=== PATIENT | female | born 1950 | race Caucasian/White ===

== ENCOUNTER 2022-07-13 14:15 | Outpatient (RCR) | payer MEDICARE, BC, SELFPAY ==
--- NOTE | 2022-05-12 12:13 | PT.OPEX ---
Please sign below to indicate agreement with POC. Thank you. 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 Tammie Ojeda Subjective Subjective Patient reports pain on L side of her ribs for about 8 weeks . Originally thought it was more internal but has had imaging that ruled out more abdominal causes. States her physician thinks her ribs on the left are touching her hip, states she used to be 5'6 but is now 5'4. Reports she had a mastectomy on the L back in 2019, feels like prosthesis on L is weighing that side down. Has started a core strengthening class about 2 weeks ago and is attending 3x per week. Not able to pin point pain to any specific activities but is present intermittently throughout the day, notices it more when she' s sitting. Reports finding some relief with elongating her back when laying in bed but isn't as comfortable when trying to sleep on her side. Has tried both ibuprofen ( doesn't like to take it, I have a pretty high tolerance to pain) and heat which both seem to have provided some relief. Denies any diagnosis of osteopenia/osteoporosis. Reports pain sometimes radiates around to the L side of her back. States she has a reformer and other exercise equipment at home that she can use. Pain Comments 0/10 at lowest, tends to hover around 4-5/10, goes up to 8-9 /10 at worst Sometimes a sharp pain but typically is more of a dull, grinding feeling originally thought I had an ulcer Date of Last Physician Visit 04/19/22 Current Work Status Retired Preferred Name Fatmata Precautions Therapy Limitations/Systems Review Not Limited Objective Range of Motion Trunk: Flexion - 80% Extension - 100% SB - L 80%, R 75% (more stiff toward L) Rotation - 75% bilaterally, pain on L when turning toward R Hip: WNL Strength Trunk: Flexion - 4/5 Extension - 5/5 SB - 4+/5 bilaterally Rotation - 5/5 bilaterally Hip: Flexion - 4-/5 bilaterally Extension - Abd. - 5/5 bilaterally Add. - 5/5 bilaterally IR - 4+/5 bilaterally ER - 4/5 bilaterally Palpation Rib mobility: normal on L, no pain Spinal mobility: mild hypomobility of lower thoracic spine, tender around T11-12 with central and unilateral PA mob Soft tissue: tender/tight L hip flexor/ iliacus tender/tight bilateral thoracic region erector spinae Balance & Gait Gait: normal Posture Decreased space on L side between lower ribs and iliac crest Functional Test Performed & Score Modified JULIO (05/12/22) score: 10/50 (20% impaired) Assessment Assessment/Impression Patient is a 71 year old female who presents to physical therapy with decreased space between her lower left ribs and iliac crest resulting L hip and back pain. Objective testing revealed bilateral hip weakness, mild core/trunk weakness, and decreased thoracic spine mobility. She was tender with palpation of L iliacus and thoracic erector spinae muscles, found mild relief with STM to affected muscles. The above findings limit the patients ability to sit comfortably and move throughout day to day activities pain-free. She will benefit from skilled intervention to increase trunk /hip strength and thoracic spine mobility to improve trunk posture and decrease frequency of symptoms to allow patient to return to PLOF. Primary Functional Limitations pain in L lower ribs, pain in L iliac crest, pain with sitting, hip muscle weakness, decrease thoracic spine mobility Plan of Care Rehabilitation Potential Good Physical Therapy Goals created 05/12/22: STG - Patient will improve gross hip strength to 4/5 in 4 weeks. STG - Patient will decrease subjective report of pain at worst from 8-9/10 to 5-6/10 to indicate improving symptoms and increased tolerance for prolonged sitting in 4 weeks. LTG - Patient will increase gross hip and trunk strength to 5/5 for optimal functional movement in 10 weeks. LTG - Patient will decrease subjective report of worst pain to 1-2/10 in order to tolerate longer bouts of sitting and daily activities without pain and return to PLOF in 10 weeks. LTG - Patient will demonstrate compliance with HEP in order to manage symptoms at home and decrease likelihood of symptom reoccurrence in 10 weeks. Treatment Plan/Direct Interventions Joint Mobilization,Manual Therapy,Neuromuscular Re-ed, Orthotics/Braces,Therapeutic Activities,Therapeutic Exercises,Traction (Mechanical ) Frequency/Duration 1x/week for 8-10 weeks Patient Will Be Discharged From Therapy Completion of LTG(s),Skills Plateau,Independent w/HEP, Independently Progressing Evaluation Billing Untimed Code Treatment Minutes 40 Complexity High Certification Information Initial Certification Date 05/12/22 Ending Certification Date 07/21/22
== END 2022-07-19 10:16 | disposition home or self-care (01) ==
PROVIDERS: PCP Internal Medicine; Visit Provider Internal Medicine
DX: R29.3 Abnormal posture (principal)
CPT/HCPCS: 97110; 97140; 97163

== ENCOUNTER 2022-11-08 08:04 | Outpatient (CLI) | payer MEDICARE, BC, SELFPAY ==
--- NOTE | 2022-11-08 08:15 | MR_ITS ---
[address] [address] Phone:?[phone] Fax:?[phone] Referring Physician Information: Felix Recinos M.D. [id number] [facility] [address] Phone:?[phone] Fax:?[phone] Patient:Jabari Crespo D.O.B:?1950 Sex:?Female Phone:?[phone] [facility] MRN:?[id number] Exam Date:?11/08/2022 ? EXAM: MRI of the RIGHT KNEE, without contrast CLINICAL HISTORY: Ongoing right knee pain. Medial meniscal tear. COMPARISONS: MRI 07/14/2009. TECHNICAL: MR sequences of the right knee: sagittals: PD, PDFS coronals: PD, STIR axials: PD, T2 FS CONTRAST: None SEDATION: None FINDINGS: Bones: No fracture or destructive osseous lesion. Patellofemoral joint: Cartilage: Predominantly intact. Retinacula: The medial and lateral retinacula are intact. Knee joint: Effusion: Trace right knee joint effusion. Popliteal cyst: Moderately sized popliteal cyst. Intra-articular bodies: None. Posteromedial corner: The semimembranosus and pes anserine tendons are intact. Medial compartment: Medial meniscus: 3.0 cm in length inferiorly surfacing flap tear from the body through posterior horn of the medial meniscus with a flap of torn meniscal tissue from the body flipped into the medial gutter with adjacent reactive medial tibial plateau bone marrow edema best seen on coronal series 8 images 16 through 20 and sagittal series 6 images 24 through 19, markedly progressed compared to previous MRI 07/14/2009. Cartilage: Extensive near full-thickness and full-thickness chondral loss over the central and peripheral portions of the medial tibial plateau with subjacent degenerative subchondral edema-like signal and extensive near full-thickness chondral loss over much of the weightbearing portion of the medial femoral condyle, markedly increased compared to previous MRI 07/14/2009. Lateral compartment: Lateral meniscus: Free edge fraying of the body of the lateral meniscus. No unstable lateral meniscal tear is seen. Cartilage: 5 x 5 mm area of grade II to III chondromalacia over the central portion of the lateral tibial plateau and 5 x 5 mm area of grade I to II chondromalacia over the mid weightbearing portion of the lateral femoral condyle, new compared to previous MRI 07/14/2009. Ligaments: Anterior cruciate ligament: Intact. Posterior cruciate ligament: Intact. Medial collateral ligament: Intact. Posterior oblique ligament: Intact. Fibular collateral ligament: Intact. Posterolateral corner: The distal biceps femoris tendon, iliotibial band, popliteus tendon, popliteus muscle, popliteofibular ligament, and arcuate ligament are intact. Extensor mechanism: Patellar tendon: Intact. Quadriceps tendon: Intact. IMPRESSION: 1. 3.0 cm in length inferiorly surfacing flap tear from the body through posterior horn of the medial meniscus with a flap of torn meniscal tissue from the body flipped into the medial gutter, markedly progressed compared to previous MRI 07/14/2009. 2. Extensive near full-thickness and full-thickness chondral loss over the central and peripheral portions of the medial tibial plateau with degenerative subchondral edema-like signal and extensive near full-thickness chondral loss over much of the weightbearing portion of the medial femoral condyle. This medial component chondromalacia has markedly increased compared to previous MRI 07/14/2009. 3. Free edge fraying of the body of the lateral meniscus. No unstable lateral meniscal tear. 4. 5 x 5 mm area of grade II to III chondromalacia over the central portion of the lateral tibial plateau and a 5 x 5 mm area of grade I to II chondromalacia over the mid weightbearing portion of the lateral femoral condyle, new compared to previous MRI 07/14/2009. 5. Trace right knee joint effusion. Moderately sized popliteal cyst. 6. No ligamentous injury of the right knee. RCB Electronically signed on 11/08/2022 1:23:00 PM by Norman Diez M.D.
== END 2022-11-08 08:05 | disposition home or self-care (01) ==
PROVIDERS: PCP Internal Medicine; Visit Provider Orthopaedic Surgery
DX: M25.561 Pain in right knee (principal); M23.221 Derangement of posterior horn of medial meniscus due to old tear or injury, right knee; M94.261 Chondromalacia, right knee; M25.461 Effusion, right knee; M71.21 Synovial cyst of popliteal space [Baker], right knee
CPT/HCPCS: 73721

== ENCOUNTER 2022-11-24 19:17 | Emergency (ER) | payer MEDICARE, BC, SELFPAY ==
[2022-11-24] VITALS (18 sets, daily range): BP systolic 132–167; BP diastolic 77–98; PULSE 66–71; RESP 16; TEMP 36.7; O2SAT 97–99; BMI 25.1
--- NOTE | 2022-11-24 20:18 | ED_ITS ---
HPI - General Adult General Chief complaint: Unspecified Complaint, Adult Stated complaint: heart palpitations, shortness of breath Time Seen by Provider: 11/24/22 20:09 History of Present Illness HPI narrative: 72-year-old woman presenting to the emergency department after complained of fluttering feeling that has been occurring in her upper abdomen low chest area on and off since her Pilates class this morning. She does admit a history of anxiety. She is little breathless here. Normally would not struggle with exercise intolerance. She is not actually having pain. Maybe a little lightheaded but not dizzy. Her mother had atrial fibrillation ultimately a CVA and so she is worried about this as well as possibly a heart attack. Related Data Home Medications Medication Instructions Recorded Confirmed bupropion HCl 150 mg 24 hr tablet, 150 mg PO DAILY 07/06/22 11/24/22 extended release clobetasol 0.05 % topical ointment 1 applic topical QDAY PRN 07/06/22 11/13/22 trazodone 50 mg tablet 50 mg PO .Bedtime 07/06/22 11/24/22 Allergies Allergy/AdvReac Type Severity Reaction Status Date / Time Sulfa (Sulfonamide Allergy Rash Verified 11/24/22 19:34 Antibiotics) Review of Systems Status of ROS: Reports: 10 or more systems reviewed and unremarkable except as noted in History and below [facility] Medical History History of gestational diabetes mellitus (GDM) Surgical History History of appendectomy (1963) History of left mastectomy (07/29/19) History of repair of rectocele (1997) History of squamous cell carcinoma of skin (2016) Family History Mother Atrial fibrillation Maternal Grandmother Atrial fibrillation Social History Smoking Status: Former smoker How often do you have a drink containing alcohol: monthly or less AUDIT-C Alcohol total score: 1 Non-prescribed substance use: denies use Little interest or pleasure in doing things: several days Feeling down, depressed, or hopeless: several days Exam Narrative: Exam Narrative: Pleasant. Mildly labored and mildly tachypneic during initial exam. During exam she does note that is having the symptoms again and I am able to observe what appear to be intermittent muscular fasciculations apparently in the epigastrium. She says this is the symptom that she is having. No dysrhythmia on monitor to correspond with her feeling otherwise. While intermittently breathless, lungs are clear. Cranial nerves 2-12 look to be intact. Neck is supple without supraclavicular crepitus. Trachea is midline. Heart with a regular rate and rhythm. No murmur rub or gallop identified. Abdomen is soft nontender. Otherwise as above. Extremities are without edema. She is well nourished and muscled. Const: Vital Signs, click to edit/add: Vital Signs - 24 hr 11/24/22 19:30 11/24/22 20:06 11/24/22 20:19 Temperature 98.1 F Pulse Rate 68 Pulse Rate [Left P ulse Oximeter] 71 68 Respiratory Rate 16 Blood Pressure Blood Pressure [Ri ght Upper Arm] 167/98 H 149/81 H Pulse Oximetry 99 97 97 Oxygen Delivery Me thod Room Air Room Air 11/24/22 20:30 11/24/22 20:31 11/24/22 20:45 Temperature Pulse Rate 71 68 66 Pulse Rate [Left P ulse Oximeter] Respiratory Rate Blood Pressure 141/77 H Blood Pressure [Ri ght Upper Arm] Pulse Oximetry 97 97 98 Oxygen Delivery Me thod 11/24/22 21:00 11/24/22 21:01 11/24/22 21:02 Temperature Pulse Rate 71 67 68 Pulse Rate [Left P ulse Oximeter] Respiratory Rate Blood Pressure 132/81 Blood Pressure [Ri ght Upper Arm] Pulse Oximetry 99 99 99 Oxygen Delivery Me thod 11/24/22 21:15 11/24/22 21:30 11/24/22 21:31 Temperature Pulse Rate 70 70 67 Pulse Rate [Left P ulse Oximeter] Respiratory Rate Blood Pressure 139/81 Blood Pressure [Ri ght Upper Arm] Pulse Oximetry 98 99 99 Oxygen Delivery Me thod 11/24/22 21:45 11/24/22 22:00 11/24/22 22:10 Temperature Pulse Rate 69 66 67 Pulse Rate [Left P ulse Oximeter] Respiratory Rate Blood Pressure 154/97 H Blood Pressure [Ri ght Upper Arm] Pulse Oximetry 99 98 97 Oxygen Delivery Me thod 11/24/22 22:11 11/24/22 22:15 11/24/22 22:31 Temperature Pulse Rate 67 67 Pulse Rate [Left P ulse Oximeter] Respiratory Rate Blood Pressure 142/88 H Blood Pressure [Ri ght Upper Arm] Pulse Oximetry 97 97 Oxygen Delivery Me thod Documenting provider has reviewed patient's vital signs: yes Course Vital Signs Vital signs: Initial Vital Signs Temperature 98.1 F 11/24/22 19:30 Temperature Source Temporal Artery Scan 11/24/22 19:30 Pulse Rate 71 11/24/22 19:30 Respiratory Rate 16 11/24/22 19:30 Blood Pressure 167/98 H 11/24/22 19:30 Blood Pressure Mean 121 11/24/22 19:30 Blood Pressure Position Sitting 11/24/22 19:30 Pulse Oximetry 99 11/24/22 19:30 Oxygen Delivery Method 11/24/22 19:30 Vital Signs Temperature 98.1 F 11/24/22 19:30 Pulse Rate 71 11/24/22 19:30 Respiratory Rate 16 11/24/22 19:30 Blood Pressure 167/98 H 11/24/22 19:30 Pulse Oximetry 99 11/24/22 19:30 Oxygen Delivery Method 11/24/22 19:30 Temperature 98.1 F 11/24/22 19:30 Pulse Rate 67 11/24/22 22:15 Respiratory Rate 16 11/24/22 19:30 Blood Pressure 142/88 H 11/24/22 22:31 Pulse Oximetry 97 11/24/22 22:15 Oxygen Delivery Method 11/24/22 20:06 Medical Decision Making MDM Narrative Medical decision making narrative: I think it is evident what is occurring here. I think this is also exacerbating anxiety. I do propose though he screen for electrolyte abnormalities and proceed accordingly. There were some concerns also expressed about potential aortic aneurysm. D-dimer was also collected to evaluate for vascular disruption. Labs were overall unremarkable. Was given 1 mg of lorazepam during time. On reassessment was still having some of these fasciculations. Overall seemed more relaxed. Lab Data Lab results reviewed: Yes I reviewed the patient's lab results Labs: Lab Results 11/24/22 11/24/22 11/24/22 Range/Units 20:29 20:29 20:29 Hgb 13.0 (12.0-16.0) gm/dL D-Dimer Quant (PE/DVT) 0.40 (0.00-0.50) ug/ml Sodium 138 (135-149) mmol/L Potassium 4.1 (3.6-5.1) mmol/L Chloride 107 (96-114) mmol/L Carbon Dioxide 28 (20-32) mmol/L BUN 16 (7-30) mg/dL Creatinine 0.7 (0.5-1.5) mg/dL Estimated Creat Clear 45.20 Estimated GFR 93 ml/min Glucose 94 (60-115) mg/dL Calcium 8.8 (8.4-10.6) mg/dL Magnesium 2.1 (1.5-2.6) mg/dL Troponin I < 0.01 L (0.01-0.04) ng/mL C-Reactive Protein < 0.5 L (0.5-1.0) mg/dL ECG Data Attestation: I personally reviewed and interpreted this ECG as follows: (Normal sinus rhythm rate of 66. Little baseline irritability consistent with what appears to be some muscle tension) Discharge Plan Discharge Clinical Impression: Anxiety, Fasciculations of muscle Patient Disposition: Home w/ Parent or Adult Condition: Stable Additional Instructions: Continue to stay well hydrated and participating in activities as usual. Continue to take your magnesium. Your magnesium level today incidentally was 2.1 (range for us is 1.5-2.6) If this seems to be worsening and or you are feeling lightheaded or with worsening shortness of breath or with escalating chest pain, return to the emergency department. I would expect this to resolve within a couple of days? Prescriptions: No Action bupropion HCl 150 mg tablet extended release 24 hr 150 mg PO DAILY trazodone 50 mg tablet 50 mg PO .Bedtime clobetasol 0.05 % ointment 1 applic topical QDAY PRN Follow Up/Referrals: Tammie Ojeda MD [Primary Care Provider] - Stand Alone Forms: MyHealth Info Instructions
[2022-11-24 20:54] LABS: Chloride* 107 mmol/L (96-114); Potassium* 4.1 mmol/L (3.6-5.1); Sodium* 138 mmol/L (135-149)
[2022-11-24 20:57] LABS: Carbon Dioxide* 28 mmol/L (20-32); Creatinine* 0.7 mg/dL (0.5-1.5); Estimated Glomerular Filt Rate 93 ml/min
[2022-11-24 20:58] LABS: Blood Urea Nitrogen* 16 mg/dL (7-30); Calcium* 8.8 mg/dL (8.4-10.6); Glucose* 94 mg/dL (60-115); Magnesium* 2.1 mg/dL (1.5-2.6)
[2022-11-24 21:03] LABS: C Reactive Protein* < 0.5 mg/dL (0.5-1.0)
[2022-11-24 21:11] LABS: Troponin I* < 0.01 ng/mL (0.01-0.04)
[2022-11-24] MEDS: LORazepam 1 MG TABLET PO (22:10)
== END 2022-11-24 22:45 | disposition home or self-care (01) ==
PROVIDERS: Emergency Provider Family Medicine; PCP Internal Medicine
DX: F41.9 Anxiety disorder, unspecified (principal); R25.3 Fasciculation
CPT/HCPCS: 36415; 80048; 83735; 84484; 85018; 85379; 86140; 93005; 99283; 99284; A9270

== ENCOUNTER 2023-06-13 14:30 | Outpatient (RCR) | payer MEDICARE, BC, SELFPAY ==
--- NOTE | 2023-04-04 15:16 | PT.OPEX ---
Please review and sign the attached PT evaluation completed on 04/04/23. Thank you. PT [place] [facility] PT [facility] Outpatient Eval Start: 03/30/23 09:37 Freq: Status: Active Protocol: Document 04/04/23 12:21 TLQ (Rec: 04/04/23 14:29 TLQ Laptop) E-signed By Neris James DPT Physical Therapy Outpatient Evaluation Insurance Information Recert Due Date 07/03/23 Insurance Name Medicare B,Blue Cross/Blue Shield Medical Diagnosis Other tear of medial meniscus, current injury, right knee ( S83.241A) Unilateral primary osteoarthritis, right knee ( M17.11) Treating Diagnosis Pain in right knee (M25.561) Muscle weakness (M62.81) Referring MD Felix Recinos MD Subjective Subjective Patient was on vacation at the beginning of January 2023 when she was walking on a flat surface and experienced enormous pain in her right knee, wasn?t able to walk initially without a cane. Pain got so bad that she went to an ER in [place] and got a steroid injection in her hip. Knee was swollen initially. When she returned from her trip she saw Dr. Recinos who gave her a steroid injection in her right knee which has helped reduce some of her knee pain, now only a dull ache. Also had an x-ray taken when she saw the orthopedic doctor, indicated medial compartment arthritis and a meniscal tear per the patient?s report. Hasn ?t played pickleball or done any exercises on her knee since the injection, mostly due to fear of hurting her knee. Would like to hold off on a knee replacement if possible. Patient also notes that she gets a lot of intense muscle cramping that can ? distort the fingers?, this was happening before the knee injury. Has feelings of catching/locking in her right knee but has not fallen as a result. Was provided a knee brace for support that she is inquiring about wearing. Currently navigating stairs with a step to pattern due to pain in her right knee. PMHx: Depression, Cancer ( remission), respiratory problems, fibromyalgia, arthritis Pain Comments 02/05 quality: dull ache location: medial right knee aggravating factors: kneeling while gardening, stairs Current Work Status Retired Preferred Name Fatmata Precautions Therapy Limitations/Systems Review Not Limited Objective Other/Pertinent Objective Lower extremity strength: Hip: flexion L 4+, R 4 extension 4+ B abduction 4 B adduction 4+ B internal rotation L 5, R 4+ external rotation L 4+, R 4 Knee: flexion 5 B extension 5 B Ankle/foot: dorsiflexion 4+ B plantarflexion 25 SLHR B, anterior suprapatellar pain on R R knee AROM: WFL TTP on R: distal adductors, distal ITB, quad tendon/ patellar tendon, patella, tibial tubercle, medial joint line Joint mobility: normal patellar mobility, mild hypomobile posterior tibiofemoral glide Special tests: Gucci's test (+) for medial meniscal pain on R varus stress test (-) valgus stress test (+) for pain on R Tibiofemoral distraction (+) positive symptom response Apley's compression (-) Patellar compression (+) for pain with quad set Gait: non-antalgic Functional Test Performed & Score LEFS: 48/80 (MCID 9 points) Assessment Assessment/Impression Fatmata is a 72 year old female who presents to outpatient physical therapy today with right knee pain that suddenly began 2 months ago. Pain began insidiously, initially severe enough that patient needed to use a cane for ambulation, presents to today?s evaluation ambulating without use of an assistive device. Patient?s pain has improved since receiving an injection in her right knee, is a constant ache throughout the day but is aggravated by activities involving knee flexion in weightbearing (kneeling, stairs, squats). Pain likely due to medial tibiofemoral joint arthritis and meniscal pathology based on response to special tests, valgus stress test and Gucci?s, relief with tibiofemoral distraction. Patellofemoral arthritis also likely due to pain with patellar compression. Tender on the RLE with palpation of medial tibiofemoral joint line , quad/patellar tendons, anterior patella, and distal hip adductors/ITB. Mild hip weakness present with manual strength testing. Patient was educated on meniscus anatomy and positions/activities that may aggravate her symptoms. Based on today?s examination findings, she will benefit from skilled interventions of manual therapy, therapeutic exercise, therapeutic activity , and gait training to reduce severity of symptoms to increase patient?s ability to participate in her desired physical activities. Primary Functional Limitations squatting, kneeling, stairs, hip weakness, right knee pain Plan of Care Rehabilitation Potential Good Physical Therapy Goals In 3-4 visits: - Patient will adhere to her HEP in order to progress strength and mobility exercises. - Patient will be able to garden for 20 minutes with <3/ 10 pain in her right knee. In 6-8 visits: - Score on LEFS will improve to >57 (MCID 9 points) to demonstrate functional improvements in participation in daily activities. - Hip strength will improve to 4+/5 for improved stability during gait and weight bearing activities. - Patient will be able to ascend/descend stairs with a reciprocal pattern and <2/10 pain for improved functional mobility. Treatment Plan/Direct Interventions Gait Training,Ice/Cold/ Vasopneumatic,Manual Therapy, Neuromuscular Re-ed,Self-Care/ Home Management,Therapeutic Activities,Therapeutic Exercises Frequency/Duration 1x/week for 6-8 weeks Patient Will Be Discharged From Therapy Completion of LTG(s),Skills Plateau,Independent w/HEP, Independently Progressing Evaluation Billing Untimed Code Treatment Minutes 38 Complexity Low Certification Information Initial Certification Date 04/04/23 Ending Certification Date 07/03/23 Provider Signature Shows Agreement With POC & Medical Necessity Physician Signature & Date Requested Please Sign/Date Here Physician Comment/Change : Physician NPI Number #
== END 2023-08-20 08:25 | disposition home or self-care (01) ==
PROVIDERS: PCP Internal Medicine; Visit Provider Orthopaedic Surgery
DX: S83.241A Other tear of medial meniscus, current injury, right knee, initial encounter (principal); M17.11 Unilateral primary osteoarthritis, right knee; M25.561 Pain in right knee; M62.81 Muscle weakness (generalized); Z51.89 Encounter for other specified aftercare
CPT/HCPCS: 97110; 97140; 97161

== ENCOUNTER 2023-07-17 08:41 | Outpatient (CLI) | payer MEDICARE, BC, SELFPAY ==
--- NOTE | 2023-07-17 10:42 | W.ANESCHARGE ---
Anesthesia Charges Start Date/Time Anesthesia Start Date: 07/17/23 Anesthesia Start Time: 09:47 Stop Date/Time Anesthesia Stop Date: 07/17/23 Anesthesia Stop Time: 10:47
--- NOTE | 2023-07-17 11:09 | W.ANESCHARGE ---
Anesthesia Charges Start Date/Time Anesthesia Start Date: 07/17/23 Anesthesia Start Time: 09:47 Stop Date/Time Anesthesia Stop Date: 07/17/23 Anesthesia Stop Time: 10:47
== END 2023-07-17 08:42 | disposition home or self-care (01) ==
LOC: OP CLINIC 08:42
PROVIDERS: PCP Internal Medicine; Visit Provider Surgery
DX: Z12.11 Encounter for screening for malignant neoplasm of colon (principal); K62.1 Rectal polyp; K63.5 Polyp of colon; Z86.010 Personal history of colon polyps
CPT/HCPCS: 45380; 45381; 45385; 811; 812; 88305; J2704

== ENCOUNTER 2023-11-05 14:45 | Outpatient (CLI) | payer MEDICARE, BC, SELFPAY ==
--- OUTSIDE RECORDS SUMMARY | 2023-11-05 14:51 | XMS_ITS | Clinical Summary ---
Author Name Unknown Organization [employer] [facility] Address [place], [place] [address] Care Team Providers Care Salvage Mend Worker Name Role Phone Liat Lee MD Primary Care Provider [phone] Allergies Active Allergy Reactions Criticality Noted Date Comments Sulfa (Sulfonamide Antibiotics) Rash,Itching Sulfa (Sulfonamide Antibiotics) Rash 06/30 Medications Medication Sig Dispensed Refills Start Date End Date Status clobetasol 0.05% (TEMOVATE 0.05% OINTMENT) 0.05 % ointment Apply topically to affected area(s) 2 times daily. 1 Tube 0 04/22/2010 Active Magnesium Glycinate 100 mg Tab Take by mouth. 0 08/07/2011 Active L Glutamine-N qcmh-Dht-Ifz-Min 10600-140 g-mg-mg Pack Take by mouth. 0 08/07/2011 Active traZODone (DESYREL) 50 mg tablet Take 1 tablet by mouth at bedtime. 0 11/09/2011 Active CPAP New nasal pillows, tubing. 1 unit 0 01/11/2015 Active buPROPion (WELLBUTRIN XL) 300 mg Extended-Release tablet Take 300 mg by mouth. 0 08/02/2020 Active traZODone (DESYREL) 50 mg tablet Take 100 mg by mouth. 0 Active Active Problems Problem Noted Date Diagnosed Date Postconcussive syndrome 01/29/2012 Overview: Injuries May and Jun 2011 at work Abnormal brain MRI 01/29/2012 Overview: Done at [facility] in 2010, 3 cm white matter lesion, a few other small lesions, nonspecific findings. Lichen sclerosus 01/25/2012 Overview: Followed at [facility] as of 01/25/2012 Memory loss 10/02/2011 Immunizations Name Administration Dates Next Due Hepatitis A (Adult) 05/23/2000,06/13/1999 Hepatitis B (Adult) 06/06/1999 Inactivated Polio Vaccine 06/13/1999 Td (Age >=7 Years) 06/06/1999 Tdap 10/02/2011 Typhoid (injectable) 07/24/2002 Family History Medical History Relation Name Comments Other Father Other Mother Relation Name Status Comments Father Mother Social History Tobacco Use Types Packs/Day Years Used Date Smoking Tobacco: Never Smokeless Tobacco: Never Tobacco Cessation:Counseling Given: Yes Comments:quit 31yrs ago Alcohol Use Standard Drinks/Week Comments Yes 1.7 (1 standard drink = 0.6 oz p ure alcohol) Sex and Gender Information Value Date Recorded Sex Assigned at Not on file Gender Identity Not on file Sexual Orientation Not on file Obstetrics History Last Filed Vital Signs Vital Sign Reading Time Taken Comments Blood Pressure 118/77 08/03/2021 10:18 AM CDT Pulse 68 08/03/2021 10:18 AM CDT Temperature 38.1 ??C (100.6 ??F) 09/08/2017 8:[address] Respiratory Rate 20 09/08/2017 8:18 PM BASKETBALL PLAYER Oxygen Saturation 98% 08/03/2021 10: 18 AM CDT Inhaled Oxygen Concentration - - Weight 66.6 kg (146 lb 12.8 oz) 021 10:18 AM CDT Height 165.1 cm (5' 5) 09/10/2019 8:00 AM BASKETBALL PLAYER Body Mass Index 24.43 09/10/2019 8:00 AM BASKETBALL PLAYER Plan of Treatment Health Maintenance Due Date Last Done Comments Depression screening for age 12+ 1964 BMI (ht and wt on same day) for age 18+ 1970 Hepatitis C screening for ag e 18-79 1970 Lipids for age 45-75 1997 Zoster (shingles) series for age 50+ (1 of 2) 2002 Mammogram for age 45-75 11/04/2012 11/04/19 12, 03/03/2010, 03/15/2009, Additional history exists Colonoscopy through age 75 06/23/201606/23, 06/23/2011, 11/13/2006 DEXA/DXA scan for age 65+ 2017 Medicare Wellness for age 65+ 2017 Pneumococcal series for age 65+ (1 of 1 - PCV) 2017 Tetanus booster 10/02/2021 10/02/2011, 06/06/1999 COVID-19 vaccine series (3 - 2022-24 season) 2023 01/28/2021, 12/31/2020 Influenza for age 65+ 06/29/2023 Tdap Completed 10/02/2011 Advance Directives Latest Code Status on File Code Status Date Activated Date Inactivated Comments Full Code 05/08/2007 8:41 AM 05/08/2007 3:58 PM Code Status History Code Status Date Activated Date Inactivated Comments Full Code 05/08/2007 6:32 AM 05/08/2007 8:41 AM Care Teams Salvage Mend Worker Relationship Specialty Start Date End Date Liat Lee MD [address] [place] [address] PCP - General 12/07/14
--- OUTSIDE RECORDS SUMMARY | 2023-11-05 14:52 | XMS_ITS ---
Author Name Unknown Organization [facility] Address [address] [place] [address] Care Team Providers Care Piping Supervisor Name Role Phone Unavailable Unavailable Unavailable Surgery Details Not on file Complications Check Surgery Details section. Procedure Estimated Blood Loss Check Surgery Details section. Procedure Findings Check Surgery Details section. Procedure Specimens Taken Check Surgery Details section.
--- OUTSIDE RECORDS SUMMARY | 2023-11-05 14:52 | XMS_ITS | Clinical Summary ---
Author Name Unknown Organization [facility] Address [address] [place] [address] Care Team Providers Care Carpentry Instructor Name Role Phone Unavailable Primary Care Provider Unavailabl e Source Comments Patient records contain information from all sites at [facility]. For routine questions regarding patient records, call [phone] during business hours, M-F 8:00 AM - 5:00 PM Central Time. Record requests for emergency care only can be directed to [phone] at any time.[facility] Allergies Active Allergy Reactions Criticality Noted Date Comments Sulfa (Sulfonamide Antibiotics) Hives (Reselect Reaction),Itching,Rash 05/07/2007 Medications Medication Sig Dispensed Refills Start Date End Date Status traZODone (DESYREL) 50 mg tablet Take 50-100 mg by mouth at bedtime. Taking 50-100 mg bedtime prn - pt reports usually taking two each night. 0 Active CHOLECALCIFEROL, VITAMIN D3, ORAL Take 5,000 Units by mouth daily. 0 11/24/2010 Active aspirin-acetaminophe n-caffeine (EXCEDRIN MIGRAINE) 250-250-65 mg per tablet Take 1 tablet by mouth as needed for headaches. 0 04/22/2010 Active clobetasol (TEMOVATE) 0.05 % cream Apply 1 application topically as needed (Lichen Sclerosis). 0 Active MAGNESIUM CITRATE ORAL Take 470 mg by mouth as needed. 0 Active buPROPion XL (WELLBUTRIN XL) 150 mg 24 hr tablet Take 150 mg by mouth every morning. 0 11/28/2021 Active magnesium glycinate 100 mg magnesium capsule Take by mouth. 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 Limitation Of Motion Shoulder Joint Left 020 Mastectomy Status Post Left 07/30/2019 Malignant Neoplasm Of Breast Female Left 019 Dermatitis Contact 07/14/2019 Overview: Created by Conversion Irritable Bowel Syndrome Without Diarrhea 2018 Overview: Created by Conversion Migraine Headache 07/14/2019 Overview: Created by Conversion Replacement Utility updated for latest IMO load Anxiety 10/24/2017 Myalgia Pelvic Floor Female 09/14/2010 Cancer Breast Personal History Immunizations Name Administration Dates Next Due DT, Pediatric 06/28/1989 HepA, Unspecified 05/23/2000,06/13/1999 HepB Adult 06/06/2009, 9,11/25/1998,1997 HepB, Unspecified 06/06/2009 IPV 06/13/1999 PCV13 10/24/2017 PPSV23 11/19/2018 RZV (SHINGRIX) 07/15/2019(Deferred: Not available from hospital mortician) Td Preservative Free (TENIVA C, DECAVAC) 07/30/2020 Td, (Adult) Unspecified 06/06/1999 Tdap 10/02/2011 TyVi (inj) 07/24/2002 Typhoid, Unspecified 07/24/2002 influenza high dose (65 year s or older) (PF) 07/30/2020,08/27/2019,07/17/2018,2016 typhoid vaccine, parenteral (discontinued) 07/24/2002 Family History Medical History Relation Name Comments Alcohol abuse Brother 1 Rich Anxiety disorder Brother 1 Rich Learning disorder Brother 1 Rich Prostate cancer Brother 1 Rich Alcohol abuse Brother 2 Bill Jr Anxiety disorder Brother 2 Bill Jr Depression Brother 2 Bill Jr Alcohol abuse Brother 3 Eliezer Anxiety disorder Brother 3 Eliezer Drug abuse Brother 3 Eliezer Prostate cancer Brother 3 Eliezer Anxiety disorder Daughter Milena Other Daughter Milena MS 10/16 Alcohol abuse Father Bill Anxiety disorder Father Bill Bone cancer Father Bill Depression Father Bill Diabetes Father Bill Obesity Father Bill Prostate cancer Father Bill Dementia Father's Brother Roberto Lewy Bodies Parkinsonism Father's Brother Roberto Lewy Bodies Alcohol abuse Father's Sister Brittani Alcohol abuse Maternal Grandfather Richmond Snowden'Neill Arthritis Maternal Grandmother Peg Stroke Maternal Grandmother Peg Tuberculosis Maternal Grandmother Peg Anxiety disorder Mother Kelley Arthritis Mother Kelley Depression Mother Kelley Hyperlipidemia Mother Kelley Hypertension Mother Kelley Stroke Mother Kelley Psychiatric Mother's Brother Rajinder Breast cancer Other Maternal Great Aunt Alcohol abuse Paternal Grandfather Bill Sr Depression Paternal Grandfather Bill Sr Kidney disease Paternal Grandmother Carolyn Anxiety disorder Sister 1 Oct Hyperlipidemia Sister 1 Oct Hypertension Sister 1 Oct Obesity Sister 1 Oct Anxiety disorder Sister 2 Me - Fatmata Arthritis Sister 2 Me - Fatmata Colon polyps Sister 2 Me - Fatmata Depression Sister 2 Me - Fatmata Gestational diabetes Sister 2 Me - Fatmata Migraines Sister 2 Me - Fatmata Sleep apnea Sister 2 Me - Fatmata Suicide Attempts Sister 2 Me - Fatmata Relation Name Status Comments Brother 1 Rich Brother 2 Bill Jr Brother 3 Eliezer Daughter Milena Father Bill Father's Brother Roberto Father's Sister Brittani Maternal Grandfather Richmond Snowden'Neill Maternal Grandmother Peg Mother Kelley Mother's Brother Rajinder Other Paternal Grandfather Bill Sr Paternal Grandmother Carolyn Sister 1 Oct Sister 2 Me - Fatmata Social History Tobacco Use Types Packs/Day Years Used Date Smoking Tobacco: Former Cigarettes 0.3 8 0 10/29/1972 - 10/29/1981 Smokeless Tobacco: Never Tobacco Cessation:Counseling Given: Not Answered Alcohol Use Standard Drinks/Week Comments Yes 1 (1 standard drink = 0.6 oz pur e alcohol) 1-2 glasses of wine per month Social Connection and Isolat ion Panel [NHANES] Answer Date Recorded In a typical week, how many times do you talk on the phone with family, friends, or neighbors? More than three times a week 09/05/2021 How often do you get togethe r with friends or relatives? Once a week 09/05/2021 How often do you attend chur ch or presybeterian services? Never 09/05/2021 Do you belong to any clubs o r organizations such as amish groups, unions, fraternal or athletic groups, or school groups? No 09/05/2021 How often do you attend meet ings of the clubs or organizations you belong to? Never 09/05/2021 Are you , , di vorced, , never , or living with a partner? Living with partner 09/05/2021 AUDIT-C Answer Date Recorded Q1: How often do you have a drink containing alc ohol? 2-4 times a month 09/05/2021 Q2: How many drinks containi ng alcohol do you have on a typical day when you are drinking? 1 or 2 09/05/2021 Q3: How often do you have si x or more drinks on one occasion? Never 09/05/2021 Overall Financial Resource Strain (CARDIA) Answe r Date Recorded How hard is it for you to pa y for the very basics like food, housing, medical care, and heating? Not hard at all 09/05/2021 PHQ-2 Answer Date Recorded PHQ-2 Score 4 09/12/2021 [facility] - Occupational Stress Questionnaire Answer Date Recorded Do you feel stress - tense, restless, nervous, or anxious, or unable to sleep at night because your mind is troubled all the time - these days? Very much 09/05/2021 Exercise Vital Sign Answer Date Recorde d On average, how many days pe r week do you engage in moderate to strenuous exercise (like a brisk walk)? 1 day 09/05/2021 On average, how many minutes do you engage in exercise at this level? 60 min 09/05/2021 Hunger Vital Sign Answer Date Recorded Within the past 12 months, y ou worried that your food would run out before you got the money to buy more. Never true 09/05/20 21 Within the past 12 months, t he food you bought just didn't last and you didn't have money to get more. Never true 09/05/2021 PRAPARE - Transportation Answer Date Re corded In the past 12 months, has l ack of transportation kept you from medical appointments or from getting medications? No 05/2021 In the past 12 months, has l ack of transportation kept you from meetings, work, or from getting things needed for daily living? No 09/05/2021 Housing Stability Vital Sign Answer [place] e Recorded In the last 12 months, was t here a time when you were not able to pay the mortgage or rent on time? No 09/05/2021 In the last 12 months, how many places have you lived? 2 09/05/2021 In the last 12 months, was t here a time when you did not have a steady place to sleep or slept in a correction (including now)? No 09/05/2021 Depression Answer Date Recor ded PHQ-9 Total Score (max 27) 14 09/12 Nutrition Answer Date Recorded Nutrition: EVOO Fat Source Yes 09/05 On average, how many serving s of fruits and vegetables do you eat per day (serving size is equal to 1 cup or approximately the size of a tennis ball)? 4-5 09/05/2021 Dental Answer Date Recorded Dental: Regular Dentist Yes 10/26/20 Employment Answer Date Recorded Employment status Retired 09/05/2021 Education Answer Date Recorded What is the highest level of school you have completed or the highest degree you have received? Master's degree (e.g., MA, MS, Greg, MEd, [employer], [employer]) 07/24/2019 Sex and Gender Information Value Date Recorded Sex Assigned at Female 07/01/2019 12:33 PM CDT Gender Identity Female 07/01/2019 12:33 PM CDT Sexual Orientation Straight 07/01/2019 12 :33 PM CDT Last Filed Vital Signs Vital Sign Reading Time Taken Comments Blood Pressure 146/82 03/09/2023 1:38 PM CDT Pulse 73 03/09/2023 1:38 PM CDT Temperature 37.1 ??C (98.8 ??F) 03/09/2023 1:38 PM CD T Respiratory Rate 16 12/26/2022 1:07 PM STEWARD DISHWASHER Oxygen Saturation 99% 03/09/2023 1:38 PM CDT Inhaled Oxygen Concentration - - Weight 69.7 kg (153 lb 10.6 oz) 03/09/2023 1:38 PM CDT Height 165 cm (5' 4.96) 03/09/2023 1:38 PM CDT Body Mass Index 25.6 03/09/2023 1:38 PM CDT Plan of Treatment Upcoming Encounters Date Type Department Care Team (Latest Contact Info) Description 12/14/2023 10:30 AM STEWARD DISHWASHER Clinical Communication Virtual Review in [place], [place] [address] [place] [address] 12/17/2023 5:15 PM STEWARD DISHWASHER Appointment Department of Radiology, [facility], in [place], [place] [address] [place] [address] Anuj Henao M.B.B.S., [place] [address] [place] [address] 12/18/2023 2:40 PM STEWARD DISHWASHER Office Visit Department of Oncology in [place], [place] [address] [place] [address] Anuj Henao M.B.B.S., [place] [address] [place] [address] Health Maintenance Due Date Last Done Comments Bone Density Scan (Osteoporosis Screen) 1952 CT Colonography 1952 Cologuard 1950 Colonoscopy 1950 Colorectal Cancer Surveillance 1950 Hepatitis C Screening 1950 Zoster Vaccines (1 of 2) 1971 Depression Screening (Annual PHQ-2) 10/29/2022 Fasting Glucose for Diabetes Screening 03/09/2026 03/09/2023, 09/16/2021 DTaP,Tdap,and Td Vaccines (5 - Td or Tdap) 07/30/2030 07/30/2020, 10/02/2011, 06/06/1999, Additional history exists Hepatitis A Vaccines Completed 05/23/2000, 06/13/19 99 Hepatitis B Vaccines Completed 06/06/2009, 06/06/2009, 06/06/1999, Additional history exists Pneumococcal vaccine (65+ years) Completed 11/19/2018, 10/24/2017 Fall Risk Screen (Annual) Completed 12/26/2022 Influenza Vaccine Completed 08/13/2023, , 09/12/2021, Additional history exists COVID-19 Vaccine Completed 09/11/2023, , 02/28/2022, Additional history exists HPV Vaccines Aged Out No longer eligi ble based on patient's age to complete this topic Medical Devices Implanted Type Area Wool Handler Device Identifier Shelf Expiration Date Model / Serial / Lot Clp Hrzn Ti 6 Deven Clemons Gareth - [id number] Implanted:Qty: 2 on 07/29/2019 by Nella Gerber M.D. at [facility] Hardware e.g. pins/screws/r ods [employer] [id number] / / Explanted Type Area Wool Handler Device Identifier Shelf Expiration Date Model / Serial / Lot Imaging Marker Explanted:10/2018 (Quantity not on file) Imaging Marker Breast Advance Directives For more information, please contact: [phone] Latest Code Status on File Code Status Date Activated Date Inactivated Comments Full Code 07/29/2019 6:04 PM 07/30/2019 3:04 PM Question Answer Comments Full Code: Not Discussed Due to: Patient not available Code Status History Code Status Date Activated Date Inactivated Comments Full Code 07/29/2019 7:14 AM 07/29/2019 6:04 PM Question Answer Comments Full Code: Not Discussed Due to: Not medically appropriate
--- OUTSIDE RECORDS SUMMARY | 2023-11-05 14:52 | XMS_ITS ---
Author Name Unknown Organization [facility] Address [address] [place] [address] Care Team Providers Care Switch Engineer Name Role Phone Unavailable Primary Care Provider Unavailabl e Active Problems Problem Noted Date Diagnosed Date [...] Floor Female 09/14/2010 Cancer Breast Personal History Current Oncology Plans No current plan information found. Past Plans No past plan information found. Radiation Treatments * No radiation treatments are documented for this patient in [facility]. Treatments may have been administered in another system. 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 Your Survivorship Care Plan Provided on 11/26/2019 General Information Patient name Xiomara Crespo (home) Date of 1950 Introduction This is your personal survivorship care plan. It is both a summary of your treatment history as well as a follow-up plan to guide you through the management of your continued medical care. The plan was developed by a multidisciplinary team of [place] cancer providers to help you understand, discuss, and plan post-treatment needs with your healthcare providers, including your primary care team. It includes detailed medical information regarding your treatment as well as information relating to potential shorter and long-term side-effects post-treatment. What is Survivorship? The most widely used definition of survivorship care involves the following elements: 1. Prevention of recurrent and new cancers, and of other late effects; 2. Surveillance for cancer spread, recurrence, or second cancers; assessment of medical and psychosocial late effects; 3. Intervention for consequences of cancer and its treatment, for example: medical problems such aslymphedema and sexual dysfunction; symptoms, including pain and fatigue; psychological distress experienced by cancer survivors and their caregivers; and concerns related to employment, insurance, and disability; and 4. Coordination between specialists and primary care providers to ensure that all of the survivors health needs are met. Care Team Bina Bonilla M.D. - Breast Clinic Nella Gerber M.D. - General Surgery (Breast) Stephenie Gilman M.D. - Medical Oncology HeatherWill palacios M.D. - Radiation Oncology Yuridia Lainez 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 Crespo had presented for routine screening mammogram on June 18, 2019. Multiple benign-appearing masses were identified in both breasts which appeared to be more predominant on the right compared to the left. No mammographic findings of malignancy were noted in the right breast however in theleft breast she is noted to have a mass in the upper mid region associated with architectural distortion. She was called back for additional views on June 25, 2019 which confirmed the presence of persistence of the mass with spiculated margins and associated architectural distortion in the upper central to slightly outer left breast middle depth. Ultrasound on the same day showed a hypoechoic mass measuring 2.0 x 1.6 x 2.0 with a possible additional left subareolar mass at 12 o'clock measuring 1.2 x 1.5 x 1.0 cm which may be contiguous with the 2 cm mass. Left axillary ultrasound shows a lymph node with cortical thickening at 4 mm. Repeat ultrasound the left breast [facility] on 07/16/2019 showed the left breast lesion to measured 3.4 x 2 x 2.4 cm. A second-look ultrasound was negative for any suspicious lymphadenopathy. 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 07/29/2019 Surgery and Procedures Patient underwent left total mastectomy with sentinel lymph node biopsy. No immediate reconstruction. 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 Nipple was not involved. 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 Margins of resection was negative for in situ and invasive carcinoma with closest tumor free margin of 14 mm for both. [place] lymph node labeled 1. Had 1 lymphnode that was negative for metastatic carcinoma. [place] lymph node labeled as 2. Had 2 lymph nodes that were negative for metastatic carcinoma. The mastectomy specimen carried with it 8 axillary lymph nodes that were negative for metastatic carcinoma. 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 2019 Other Medical Oncology Consultation Patient has had mastectomy and sentinel lymph node biopsy. 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 At this time we do not have evidence that adjuvant chemotherapy will definitely help her. She understands the risk for cancer recurrence is higher than breast cancers that are not of the metaplastic type stage for stage. I think is important to obtain staging given the high propensity for metastasis particularly by hematogenous spread . To this extent, we will obtain a PET scan and patient agrees to have a PET scan. Given the lack of proven benefit with adjuvant chemotherapy in metaplastic cancers, patient agrees that observation is reasonable and understands her risks of recurrence. I did talked her about the adjuvant aspirin trial. She does take Excedrin from time to time for headaches and I feel she is not a good candidate for this trial. I did talked her about the folate receptor vaccine trial and she isinterested in this. Consent form was given to her. She will review this and call me if she wants toenroll in the trial. She is also set up to see radiation oncologist to discuss role for any adjuvant radiation therapy. We discussed at length follow-up schedule and procedures. In general we will see patient every 3 months for history physical exam with screening mammogram of contralateral breast every year. No othertests will be done such as scans unless clinically indicated. Given family history of osteosarcoma with the a variant of unknown significance in a gene as well as patient's triple negative breast cancer, I approached her about being seen in Medical Genetics andkady is interested in this. I will arrange for the same Genetic Testing Performed Genetic Consultation performed - Date: 08/18/2019 09/15/2019-Negative genetic test results Background Information Family history Cancer-related family history includes Bone cancer (age of onset: 63) in her father;Breast cancer in an other family member; Prostate cancer (age of onset: 50) in her father. Social History Alcohol use has no history on file for alcohol. Tobacco use reports that she has quit smoking. Her smoking use included cigarettes. She smoked 0.00packs per day. She has never used smokeless tobacco. Schedule of Surveillance Testing and Visits The basis for the surveillance testing schedule and test recommendations in this section are largely based on guidelines from the [place] [employer] (ASCO), the biggest cancer society regarding clinical practice. -Physical examinations should be performed every 3 to 6 months for the first 3 years, every 6 to 12months for years 4 and 5, and annually thereafter. Surveillance visits How often: Every three months With Who: Medical Oncology Additional information: Imaging (mammograms) How often: yearly Where: [place] Additional information: Follow-up care with your Primary Care Physician (PCP) Follow-up care with your primary care physician is recommended for age- appropriate cancer screenings, for monitoring blood pressure, cholesterol, blood sugar, weight, and for other medical conditions. Long- term Side effects Possible late and long-term effects of cancer treatment can include bone thinning, menopausal symptoms, and nerve damage. Please talk to your care team about ways to manage these side effects. Symptoms of Recurrence In addition, please contact your healthcare provider with any new symptoms that may signify a breast cancer recurrence including lumps or skin changes on your breast or chest wall, pain that lasts more than a few weeks, difficulty breathing, or unintentional weight loss. Understand the Emotional Impact After cancer treatment, you may feel your life has changed in some ways that are hard to explain. It may seem hard to get back to ???normal.?? It is common for people who have had cancer to feel many emotions, including anxiety, depression, anger, grief or guilt. These are reasonable responses to a big health change. To help handle these emotions, you may need to decide what ???normal?? means to you after all the changes you have gone through. Doing this may help you find a new way to live that brings you more madhu and meaning. If you feel emotionally overwhelmed after your cancer treatment, tell your health care provider. She or he may be able to connect you with a support group or other support services. Your health care provider may also offer you treatment choices for specific concerns or refer to you a mental health p rofessional. * Anxiety Anxiety is a common emotion among people who have had cancer. Fear of cancer coming back often causes anxiety. Because of this, follow-up testing can be stressful. Other common sources of anxiety include job issues, concerns about money or relationships, and worries about the physical effect of cancer treatment. What you can do -Talk about your worries with someone you trust. -Try stress management tools, such as meditation, prayer and regular exercise. -Learn the signs that may tell you your cancer has returned. Learn what you can do to lower your cancer risk. -Focus on the healthy choices you can make in areas of your life that you can control. If anxiety makes your daily life difficult, see your health care provider. * Depression After cancer treatment, you may have many different feelings as you think about what you have been through. Some of these feelings may not be positive. That is normal. However, negative feelings thatstay with you for more than two weeks or get in the way of your daily life can be signs of depression. If this happens to you, talk to your health care provider. Symptoms of depression include: -Sadness -Hopelessness -Loss of interest in activities -Irritability -Difficulty Sleeping -Change in appetite -Difficulty concentrating -Problems thinking clearly * Anger Many cancer survivors feel a sense of anger. Cancer may change many parts of your life, including relationships, school, work, and mcc plans. Anger is a normal response to those changes. What you can do? It is important to express your anger in a healthy way. Talk about the way you are feeling with someone you trust. Think about whether you can talk with: -Friends -Family members -Other people who have been through cancer -A professional counselor -Your health care provider Fatigue Some cancer survivors report that they still feel tired or worn out. In fact, fatigue is one of themost common complaints during the first year of recovery. Rest or sleep does not cure the type of fatigue that you may have. Doctors do not know its exact causes. The causes of fatigue are different for people who are receiving treatment than they are for those who have finished. Fatigue during treatment can be caused by cancer therapy. Other problems can also play a part in fatigue, like anemia (having too few red blood cells) or having a weak immune system. Poor nutrition, not drinking enoughliquids, and depression can also be causes. Pain can make fatigue worse. Researchers are still learning about what may cause fatigue after treatment. How long will fatigue last? There is no normal pattern. For some, fatigue gets better over time. Some people may still feel energy loss years later. Some people feel very frustrated when fatigue lasts longer than they think it should and when it gets in the way of their normal routine. They may also worry that their friends, family, and coworkers will get upset with them if they continue to show signs of fatigue. Getting Help Talk with your doctor or nurse about what may be causing your fatigue and what can be done about it. Ask about: -How many medicines you are taking or other medical problems you have might affect your energy level -How you can control your pain, if pain is a problem for you -Exercise programs that might help, such as walking -Relaxation exercises -Changing your diet or drinking more fluids -Medicines or nutritional supplements that can help -Specialists who might help you, such as physical therapists, occupational therapists, pulmonary fellow, or mental health care providers Coping With Fatigue Here are some ideas: -Plan your day. Be active at the time of day when you feel most alert and energetic. -Save your energy by changing how you do things. For example, sit on a stool while you cook or washdishes. -Take short naps or rest breaks between activities. -Try to go to sleep and wake up at the same time every day. -Do what you enjoy, but do less of it. Focus on old or new interests that don???t tire you out. Forexample, try to read something brief or listen to music. -Let others help you. They might cook a meal, run errands, or do the laundry. If no one offers, askfor what you need. Friends and family might be willing to help but may not know what to do. -Choose how to spend your energy. Try to let go of things that don???t matter as much now. -Think about joining a support group. Talking about your fatigue with others who have had the same problem may help you find new ways to cope. Sexual Changes Sexuality is part of being human. Love, affection and intimacy all play a role in healthy relationships. Cancer and its treatments may change the way you view your body and your ability to be intimate with your partner. What you can do: -After treatment, ask your health care provider about sexual changes you can expect. -Be open and communicate with your partner about your feelings, concern and needs. You may need to find new ways to be intimate and to express your love. -Talk with your health care provider about any concerns you may have. You also may find it helpful to speak with a provider who specializes in sexuality. Spiritual issues A cancer diagnosis may change your spirituality. You may find it to be stronger and deeper and fromthe challenges you have overcome, or you may feel abandoned and struggle with the question Why me? What you can do - Take time to think about your spirituality. Try to find a sense of peace within your own spiritual framework. -Talk with your spiritual or salon leader to help guide you through some of the questions raised by your illness. -Consider using the Sand Mixer Operator staff at [facility] to help you with your spiritual questions. Changes in Weight and Eating Habits Some survivors who have had certain kinds of chemotherapy or medicines have problems with weight gain. Sometimes the added pounds stay on even when treatment ends. Breast cancer survivors who have had certain types of chemotherapy gain weight in a different way--they may lose muscle and gain fat tissue. Unfortunately, the usual ways people try to lose weight may not work for them. Try to be patient with yourself. Look for the positive things that you can control, such as eating a healthy diet. Try to focus on the fact that treatment is over, and you are trying to get stronger with time. Some cancer survivors have the opposite problem: they have no desire to eat, and they lose weight. Some men say that weight loss or loss of muscle tone is a bigger concern for them than weight gain. It makes them feel less strong and like less of a man. Managing a Healthy Weight For weight issues, ask your doctor or nurse about: -Doing strength-building exercises, if you have lost muscle or gained fat tissue -Talking to a dietitian or asset recovery specialist who can help you plan a healthy diet that won???t add extrapounds Regaining a Lost Appetite Here are some tips that have helped others improve their appetites: -Start with small meals. Five small meals a day may be easier to manage than three larger ones. -Focus on your favorite foods. If the thought of eating still lacks appeal, try the foods you really liked before treatment to jump-start your appetite. Try adding some fresh fruit, juice, or other flavoring to improve the taste. -Stay active. A short walk before a meal can help you feel hungry. Wellness Recommendations: Healthy food choices include a wide variety of fruits, vegetables, whole grains, poultry, and fish while minimizing refined grains, processed and red meats, desserts, and high?fat dairy products. Exercise after cancer treatment improves quality of life, fatigue, mood, muscle strength, and physical functioning. It also decreases the risk of cancer recurrence and the risk of cardiovascular disease. Work up to exercising 30 minutes/day at least 5 days/week, and strive to achieve a healthy weight (BMI 18.5?25). Alcohol use is linked to the risk of breast cancer recurrence. If you choose to drink alcohol, do so in moderation (no more than 7 drinks/week on average). Tobacco use may also increase risk of breast cancer recurrence. If you smoke, talk to your doctor to help you quit. The [facility] can help. Stress management tools such as meditation, prayer, and breathing exercises may be helpful. If you develop feelings of worry, anxiety, sadness, or hopelessness that persist for > 2 weeks, talk to a health care provider. Sleep is important for healing and well-being. Most adults require 7?9 hours of sleep/night. If youare having difficulty sleeping, talk to your provider .
--- OUTSIDE RECORDS SUMMARY | 2023-11-05 14:52 | XMS_ITS | Encounter Summary ---
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 [address] [place] [phone] [facility] Referral ID Status Reason Start Date Expiration Date Visits Re quested Visits Authorized [id number] Closed 02/28/2023 02/28/2024 1 1 Encounter Details Date Type Department Care Team (Latest Contact Info) Description 03/09/2023 8:07 AM CDT - 03/09/2023 11:59 PM CDT Hospital Encounter Department of Radiology in [place], [place] 200 [place] [address] Yeni May APRN, C.N.P., M.S.N. 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 Never 09/05/2021 Do you belong to any clubs o r organizations such as jew groups, unions, fraternal or athletic groups, or [...] Answer Date Recorded PHQ-2 Score 4 09/12/2021 [facility] - Occupational Stress Questionnaire Answer Date [...] place to sleep or slept in a mcfp (including now)? No 09/05/2021 Depression Answer Date [...] Date Recorded Dental: Regular Dentist Yes 10/26/20 22 Employment Answer Date Recorded Employment status Retired 09/05/2021 Education Answer Date Recorded What is the highest level of school you have completed or the highest degree you have received? Master's degree (e.g., MA, MS, Greg, MEd, SALARY MANAGER, [employer]) 07/24/2019 Sex and Gender Information Value Date Recorded Sex Assigned at Female 07/01/2019 12:33 PM CDT Gender Identity Female 07/01/2019 12:33 PM CDT Sexual Orientation Straight 07/01/2019 12 :33 PM CDT documented as of this encounter Medications at Time of Discharge Medication Sig Dispensed Refills Start Date End Date zwnsyxd-wypwdlzycscvd-m affeine (EXCEDRIN MIGRAINE) 250-250-65 mg per tablet Take 1 tablet by mouth as needed for headaches. 0 04/22/2010 buPROPion XL (WELLBUTRIN XL) 150 mg 24 hr tablet Take 150 mg by mouth every morning. 0 11/28/2021 CHOLECALCIFEROL, VITAMIN D3, ORAL Take 5,000 Units by mouth daily. 0 11/24/2010 clobetasol (TEMOVATE) 0.05 % cream Apply 1 application topically as needed (Lichen Sclerosis). 0 MAGNESIUM CITRATE ORAL Take 470 mg by mouth as needed. 0 magnesium glycinate 100 mg magnesium capsule Take by mouth. 0 traZODone (DESYREL) 50 mg tablet Take 50-100 mg by mouth at bedtime. Taking 50-100 mg bedtime prn - pt reports usually taking two each night. 0 documented as of this encounter Plan of Treatment Upcoming Encounters Date Type Department Care Team (Latest Contact Info) Description 12/14/2023 10:30 AM ELECTROTYPER HELPER Clinical Communication Virtual Review in [address] [address] 12/17/2023 5:15 PM ELECTROTYPER HELPER Appointment Department of Radiology, [facility], in [address] [phone] Anuj Henao M.B.B.S., M.Celeste. [address] [place] [phone] 12/18/2023 2:40 PM ELECTROTYPER HELPER Office Visit Department of Oncology in [address] [phone] Anuj Henao M.B.B.S., M.D. 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 RECOMMENDATION: ??Annual Screening Mammogram Upcoming cyst aspiration to the patient's discomfort. ASSESSMENT: ??BI-RADS: 2: Benign. Narrative 03/09/2023 9:51 AM CDT EXAM: ??BI ULTRASOUND BREAST FOCUSED RIGHT, BI BREAST DIAGNOSTIC RIGHT WITH TOMOSYNTHESIS INDICATION: ??Status post mastectomy of the left breast for malignancy. Patient has palpable lumps in her right breast. COMPARISON: ??Prior exam(s) were available and reviewed for comparison. FINDINGS: ??Nothing mammographically specific for malignancy. Ultrasound of the palpable abnormalities at 6 o'clock, 3 cm from the nipple and 5 o'clock 2 cm from the nipple correspond to simple cysts. The cyst at 6 o'clock measures 2.5 x 1.6 x 2.0 cm. The cyst at 5 o'clock measures 2.0 x 0.5 x 1.4 cm. The images and findings were discussed with the patient. Due to discomfort, the patient was scheduled for multiple cysts aspiration in the right breast. Procedure Note Kenton Bee M.D. - 03/09/2023 EXAM: BI ULTRASOUND BREAST FOCUSED RIGHT, BI BREAST DIAGNOSTIC RIGHT WITHTOMOSYNTHESIS INDICATION: Status post mastectomy of the left breast for malignancy.Patient has palpable lumps in her right breast. COMPARISON: Prior exam(s) were available and reviewed for comparison. FINDINGS: Nothing mammographically specific for malignancy. Ultrasound ofthe palpable abnormalities at 6 o'clock, 3 cm from the nipple and 5 o'clock 2 cm fromthe nipple correspond to simple cysts. The cyst at 6 o'clock measures 2.5 x 1.6 x 2.0 cm. The cyst at 5 o'clockmeasures 2.0 x 0.5 x 1.4 cm. The images and findings were discussed with the patient. Due todiscomfort, the patient was scheduled for multiple cysts aspiration in the right breast. IMPRESSION: No mammographic or sonographic findings of malignancy. RECOMMENDATION: Annual Screening Mammogram Upcoming cyst aspiration to the patient's discomfort. ASSESSMENT: BI-RADS: 2: Benign. Yeni May APRN, C.N.P., M.S.N. 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
--- OUTSIDE RECORDS SUMMARY | 2023-11-05 14:52 | XMS_ITS | Encounter Summary ---
Author Name Unknown Organization [facility] Address [address] [place] [address] Care Team Providers Care Knit Tubing Dyer Name Role Phone Unavailable Primary Care Provider Unavailabl e Encounter Details Date Type Department Care Team (Latest Contact Info) Description 03/08/2023 3:30 PM CDT Clinical Communication Virtual Review in [place], [place] [address] [place], [place] [phone] Social History Tobacco Use Types Packs/Day Years [...] often do you attend chur ch or zoroastrian services? Never 09/05/2021 Do you belong to any clubs o r organizations such as restoration groups, unions, fraternal or athletic groups, or [...] Answer Date Recorded PHQ-2 Score 4 09/12/2021 [facility] [place] of Occupat ional Health - Occupational Stress [...] Master's degree (e.g., MA, MS, Greg, MEd, SHAPING MACHINE TENDER, [employer]) 07/24/2019 Sex and Gender Information Value Date Recorded Sex Assigned at Female 07/01/2019 12:33 PM CDT Gender Identity Female 07/01/2019 12:33 PM CDT Sexual Orientation Straight 07/01/2019 12 :33 PM CDT documented as of this encounter Plan of Treatment Upcoming Encounters Date Type Department Care Team (Latest Contact Info) Description 12/14/2023 10:30 AM EMERGENCY SERVICE RESTORER Clinical Communication Virtual Review in [place], [place] 200 [place] [address] 12/17/2023 5:15 PM EMERGENCY SERVICE RESTORER Appointment Department of Radiology, [facility], in [place], [place] [address] [place] [phone] Anuj Henao M.B.BIgnacioSIgnacio, MPaco [address] [place] [phone] 12/18/2023 2:40 PM EMERGENCY SERVICE RESTORER Office Visit Department of Oncology in [address] [phone] Anuj Henao M.B.B.SIgnacio, MPaco [address] [place] [phone] documented as of this encounter Visit Diagnoses Not on filedocumented in this encounter Additional Health Concerns Assessment Noted Time PHQ-9 Depression Total Score: 14 09/12/ 021 7:02 AM EMERGENCY SERVICE RESTORER documented as of this encounter
--- OUTSIDE RECORDS SUMMARY | 2023-11-05 14:52 | XMS_ITS | Encounter Summary ---
Author Name Unknown Organization [facility] Address [address] [place] [address] Care Team Providers Care Glass Worker Name Role Phone Unavailable Primary Care Provider Unavailabl e Reason for Referral * Outpatient (Routine) - Authorized Specialty Diagnoses / Procedures Referred By Connie orlando Referred To Contact Oncology Anuj Henao M.B.B.S., M.D. [address] [place] [phone] [facility] Referral ID Status Reason Start Date Expiration Date V isits Requested Visits Authorized [id number] Authorized 12/26/2022 12/25/2025 1 1 PHONE INTERVIEWER * MRI/CAT/PET Scan (Routine) - Authorized Specialty Diagnoses / Procedures Referred By Connie orlando Referred To Contact Radiology Diagnoses Cancer Breast Personal History Procedures MR Breast Bilateral without and with IV Contrast Anuj Henao M.B.B.S., M.D. [address] [place] [phone] [facility] Referral ID Status Reason Start Date Expiration Date V isits Requested Visits Authorized [id number] Authorized 12/26/2022 12/26/2023 1 1 PHONE INTERVIEWER Reason for Visit * Outpatient (Routine) - Closed Specialty Diagnoses / Procedures Referred By Connie orlando Referred To Contact Oncology Anuj Henao M.B.B.S., M.D. [address] [place] [address] [facility] Referral ID Status Reason Start Date Expiration Date Visits Re quested Visits Authorized [id number] Closed 06/06/2022 06/06/2023 1 1 Encounter Details Date Type Department Care Team (Late st Contact Info) Description 12/26/2022 1:20 PM TELEPHONE INTERVIEWER Office Visit Department of Oncology in [place], [place] [address] [place] [phone] Anuj Henao M.B.B.S., M.D. [address] [place] [phone] Cancer Breast Personal History (Primary Dx); Screening Mammogram Breast Cancer Social History Tobacco Use Types Packs/Day Years [...] often do you attend chur ch or confucianism services? Never 09/05/2021 Do you belong to any clubs o r organizations such as worship groups, unions, fraternal or athletic groups, or [...] Answer Date Recorded PHQ-2 Score 4 09/12/2021 [facility] of Occupat ional Health - Occupational [...] place to sleep or slept in a skilled nursing (including now)? No 09/05/2021 Depression Answer Date [...] Master's degree (e.g., MA, MS, Greg, MEd, SHAREPOINT SPECIALIST, [employer]ERNARD[employer]) 07/24/2019 Sex and Gender Information Value Date Recorded Sex Assigned at Female 07/01/2019 12:33 PM CDT Gender Identity Female 07/01/2019 12:33 PM CDT Sexual Orientation Straight 07/01/2019 12 :33 PM CDT documented as of this encounter Last Filed Vital Signs Vital Sign Reading Time Taken Comments Blood Pressure 164/81 12/26/2022 1:07 PM TELEPHONE INTERVIEWER Pulse 73 12/26/2022 1:07 PM TELEPHONE INTERVIEWER Temperature 36.5 ??C (97.7 ??F) 12/26/2022 1:07 PM CS T Respiratory Rate 16 12/26/2022 1:07 PM TELEPHONE INTERVIEWER Oxygen Saturation 98% 12/26/2022 1:07 PM TELEPHONE INTERVIEWER Inhaled Oxygen Concentration - - Weight 68.5 kg (151 lb 0.2 oz) 12/26/2022 1:07 P M TELEPHONE INTERVIEWER Height 162.8 cm (5' 4.09) 12/26/2022 1:07 PM CS T Body Mass Index 25.85 12/26/2022 1:07 PM TELEPHONE INTERVIEWER documented in this encounter Progress Notes * Anuj Henao M.B.B.S., MJj. - 12/26/2022 1:20 PM CST SUBJECTIVE PRIMARY SHANNOCK ONCOLOGIST Stephenie Gilman M.D. Yadav, Siddhartha, M.B.B.S., M.D. CHIEF COMPLAINT / REASON FOR VISIT Xiomara Crespo is a 72 y.o. female who presents for f/u visit for her prior diagnosis of metpalsatic left breast cancer HISTORY OF PRESENT ILLNESS Oncology History Oncology History Malignant Neoplasm Of Breast Female Left (HCC) [...] 4 mm. Repeat ultrasound the left breast [facility] on 07/16/2019 showed the left breast [...] free margin of 14 mm for both. [place] lymph node labeled 1. Had 1 lymphnode that was negative for metastatic carcinoma. [place] lymph node labeled as 2. Had 2 lymph nodes that were negative for metastatic carcinoma. The mastectomy specimen carried with it 8 axillary lymph nodes that were negative for metastatic carcinoma. 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 ONC General HPI Ms. Crespo presents today for a follow-up visit. She is a 72 y.o. 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 Today, she feels well and denies any other concerning symptoms. Her ECOG performance status is 0. The following portions of the patient's history were reviewed and updated as appropriate: allergies, current medications, family history, medical history, social history and surgical history. REVIEW OF SYSTEMS Review of systems was negative except as described in HPI. OBJECTIVE BP (!) 164/81 (BP Location: Right arm, Patient Position: Sitting, Cuff Size: Regular) Pulse 73 Temp 36.5 ??C (Tympanic) Resp 16 Ht 162.8 cm Wt 68.5 kg LMP 10/29/2003 (Within Months) SpO2 98% BMI 25.85 kg/m?? PHYSICAL EXAM General: Alert and oriented. Lymph: No cervical or supraclavicular lymphadenopathy. Breast and axilla: Left breast mastectomy scar noted. No evidence of left chest wall recurrence on palpation. The right breast appears normal on inspection. Right breast appears slightly cystic/fibroglandular, but no discrete masses palpated. No axillary adenopathy bilaterally. Heart: Normal S1, S2. No murmurs. Lungs: Clear to auscultation bilaterally. Abdomen: Soft, nontender, nondistended. No hepatosplenomegaly. Extremities: No pedal edema bilaterally. ASSESSMENT / PLAN #1 Malignant Neoplasm Of Breast Female Left (HCC) Ms. Crespo is a 72 y.o. 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 We reviewed the most recent MRI of the breast. There are no findings concerning for malignancy. Based on my physical examination and the MRI, I do not note any evidence of disease r ecurrence. She was very relieved to hear this. We discussed the follow-up schedule. She will return to the clinic in approximately 6 months for a mammogram. We plan to see her back in a year with MRI. PATIENT EDUCATION Ready to learn, no apparent learning barriers were identified; learning preferences include listening. Explained diagnosis and treatment plan; patient expressed understanding of the content. ADMINISTRATIVE BILLING I personally spent over half of a total 40 minutes face to face with the patient in counseling and discussion and/or coordination of care as described above. PHONE INTERVIEWER documented in this encounter Plan of Treatment Upcoming Encounters Date Type Department Care Team (Latest Contact Info) Description 12/14/2023 10:30 AM TELEPHONE INTERVIEWER Clinical Communication Virtual Review in [place], [place] 200 [place] [address] 12/17/2023 5:15 PM TELEPHONE INTERVIEWER Appointment Department of Radiology, [facility], in [place], [place] [address] [place] [phone] Anuj Henao M.B.B.S., Gino [address] [place] [phone] 12/18/2023 2:40 PM TELEPHONE INTERVIEWER Office Visit Department of Oncology in [address] [phone] Anuj Henao M.B.B.S., Gino [address] [place] [phone] Scheduled Orders Name Type Priority Associated Diagnoses Orde r Schedule MR Breast Bilateral without and with IV Contrast Imaging RAD - Routine (most inpatients and all outpatients) Cancer Breast Personal History Expected: 12/26/2023 (Approximate), Expires: 03/25/2024 Scheduled Referrals Name Type Priority Associated Diagnoses Orde r Schedule Oncology office visit (clinic) General; Breast Outpatient Referral Routine Expected: 12/26/2023 (Approximate), Expires: 03/25/2024 documented as of this encounter Visit Diagnoses Diagnosis Cancer Breast Personal History- Primary Screening Mammogram Breast Cancer documented in this encounter Additional Health Concerns Assessment Noted Time PHQ-9 Depression Total Score: 14 021 7:02 AM TELEPHONE INTERVIEWER documented as of this encounter
--- OUTSIDE RECORDS SUMMARY | 2023-11-05 14:52 | XMS_ITS | Encounter Summary ---
Author Name Unknown Organization 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 [address] [place] [phone] [facility] Referral ID Status Reason Start Date Expiration Date Visits Re quested Visits Authorized [id number] Closed 02/28/2023 02/28/2024 1 1 Encounter Details Date Type Department Care Team (Latest Contact Info) Description 03/09/2023 8:07 AM CDT - 03/09/2023 11:59 PM CDT Hospital Encounter Department of Radiology in [place], [place] [address] [place] [address] Yeni May APRN, C.N.P., M.S.N. [address] [place] [address] Malignant Neoplasm Of Breast Upper Outer Quadrant [...] How often do you attend chur or restorationist services? Never 09/05/2021 Do you belong to any clubs o r organizations such as orthodoxy groups, unions, fraternal or athletic groups, or [...] Answer Date Recorded PHQ-2 Score 4 09/12/2021 [facility] [place] of Occupat ional Health - Occupational Stress [...] place to sleep or slept in a group home (including now)? No 09/05/2021 Depression Answer Date [...] Answer Date Recorded Dental: Regular Dentist Yes 12/29/20 22 Employment Answer Date Recorded Employment status Retired 09/05/2021 Education Answer Date Recorded What is the highest level of school you have completed or the highest degree you have received? Master's degree (e.g., MA, MS, Greg, MEd, OXIDATION OPERATOR, [employer]) 07/24/2019 Sex and Gender Information Value Date Recorded Sex Assigned at Female 07/01/2019 12:33 PM CDT Gender Identity Female 07/01/2019 12:33 PM CDT Sexual Orientation Straight 07/01/2019 12 :33 PM CDT documented as of this encounter Medications at Time of Discharge Medication Sig Dispensed Refills Start Date End Date wzytivn-dhfrxtubinhgr-y affeine (EXCEDRIN MIGRAINE) 250-250-65 mg per tablet [...] night. 0 documented as of this encounter Miscellaneous Notes * Result Encounter Note - eYni May APRN C.N.P., M.S.N. - 03/14/2023 1:02 PM CDT Hi-please see breast imaging results. She is scheduled for cyst aspiration on 03/15/23. Zina documented in this encounter Plan of Treatment Upcoming Encounters Date Type Department Care Team (Latest Contact Info) Description 12/14/2023 10:[address] [facility] Clinical Communication Virtual Review in [address] [phone] 12/17/2023 5:15 PM CEMENT TILE MAKER Appointment Department of Radiology, [facility], in [place], [place] [address] [place] [address] Anuj Henao M.B.B.S., M.D. [address] [place] [phone] 12/18/2023 2:40 PM CEMENT TILE MAKER Office Visit Department of Oncology in [place], [place] [address] [place] [address] Anuj Henao M.B.B.S., M.D. 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
--- OUTSIDE RECORDS SUMMARY | 2023-11-05 14:52 | XMS_ITS | Referral Summary ---
Author Name Unknown Organization [facility] Address [address] [place] [address] Care Team Providers Care Apartment Manager Name Role Phone Unavailable Primary Care Provider Unavailabl e Source Comments Patient records contain information from all sites at [facility]. For routine questions regarding patient records, call [phone] during business hours, M-F 8:00 AM - 5:00 PM Central Time. Record requests for emergency care only can be directed to [phone] at any time.[facility] Allergies Active Allergy Reactions Criticality Noted Date [...] 11/19/2018 RZV (SHINGRIX) 07/15/2019(Deferred: Not available from tombstone erector helper) Td Preservative Free (TENIVA C, DECAVAC) 07/30/2020 Td, (Adult) Unspecified 06/06/1999 Tdap 10/02/2011 TyVi (inj) 07/24/2002 Typhoid, Unspecified 07/24/2002 influenza high dose (65 year s or older) (PF) 07/30/2020,08/27/2019,07/17/2018,2016 typhoid vaccine, parenteral (discontinued) 07/24/2002 Social History Tobacco Use Types Packs/Day Years [...] often do you attend chur ch or advent services? Never 09/05/2021 Do you belong to any clubs o r organizations such as hindu groups, unions, fraternal or athletic groups, or [...] Answer Date Recorded PHQ-2 Score 4 09/12/2021 [facility] - Occupational Stress Questionnaire Answer Date Recorded [...] place to sleep or slept in a usp (including now)? No 09/05/2021 Depression Answer Date [...] Master's degree (e.g., MA, MS, Greg, MEd, INSTRUCTIONAL SPECIALIST, BERNARDO) 07/24/2019 Sex and Gender Information [...] T Respiratory Rate 16 12/26/2022 1:07 PM EGG BUYER Oxygen Saturation 99% 03/09/2023 1:38 PM CDT Inhaled Oxygen Concentration - - Weight 69.7 kg (153 lb 10.6 oz) 03/09/2023 1:38 PM CDT Height 165 cm (5' 4.96) 03/09/2023 1:38 PM CDT Body Mass Index 25.6 03/09/2023 1:38 PM CDT Plan of Treatment Upcoming Encounters Date Type Department Care Team (Latest Contact Info) Description 12/14/2023 10:30 AM EGG BUYER Clinical Communication Virtual Review in [place], [place] [address] [place] [address] 12/17/2023 5:15 PM EGG BUYER Appointment Department of Radiology, [facility], in [place], [place] [address] [place] [phone] Anuj Henao M.B.B.S., MPaco [address] [place] [phone] 12/18/2023 2:40 PM EGG BUYER Office Visit Department of Oncology in [place], [place] [address] [place] [phone] Anuj Henao M.B.B.S., MPaco [address] [place] [phone] Medical Devices Implanted Type Area Signal Manager Device Identifier Shelf Expiration Date Model / Serial / Lot Clp Hrzn Ti 6 Deven Clemons [facility] - [id number] Implanted:Qty: 2 on 07/29/2019 by Nella Gerber M.D. at [facility] Hardware e.g. pins/screws/r ods [employer] [id number] / / Explanted Type Area Signal Manager Device Identifier Shelf Expiration Date Model / Serial / Lot Imaging Marker Explanted:10/2018 (Quantity not on file) Imaging Marker Breast Advance Directives For more information, please contact: [phone] Latest Code Status on File Code Status [...]
--- OUTSIDE RECORDS SUMMARY | 2023-11-05 14:52 | XMS_ITS | Encounter Summary ---
Author Name Unknown Organization [facility] Address [address] [place] [address] Care Team Providers Care Tare Weigher Name Role Phone Unavailable Primary Care Provider Unavailabl e Encounter Details Date Type Department Care Team (Late st Contact Info) Description 12/26/2022 Clinical Communication Department of Oncology in [place], [place] [address] [place] [phone] Kelsie Becerra, R.N. [address] [place] [phone] Social History Tobacco Use Types Packs/Day Years [...] often do you attend chur ch or jewish services? Never 09/05/2021 Do you belong to any clubs o r organizations such as druze groups, unions, fraternal or athletic groups, or [...] Answer Date Recorded PHQ-2 Score 4 09/12/2021 [facility] - Occupational Stress [...] Master's degree (e.g., MA, MS, Greg, MEd, BLANKET WINDER HELPER, BERNARDO) 07/24/2019 Sex and Gender Information Value Date Recorded Sex Assigned at Female 07/01/2019 12:33 PM CDT Gender Identity Female 07/01/2019 12:33 PM CDT Sexual Orientation Straight 07/01/2019 12 :33 PM CDT documented as of this encounter Miscellaneous Notes * Addendum Note - Kelsie Becerra, R.N. - 12/26/2022 2:45 PM CSTAddended by: KELSIE BECERRA on: 12/26/2022 02:45 PM Modules accepted: Orders MILL OPERATOR documented in this encounter Plan of Treatment Upcoming Encounters Date Type Department Care Team (Latest Contact Info) Description 12/14/2023 10:30 AM BANDMILL OPERATOR Clinical Communication Virtual Review in [place], [place] 200 [place] [address] 12/17/2023 5:15 PM BANDMILL OPERATOR Appointment Department of Radiology, [facility], in [place], [place] [address] [place] [phone] Anuj Henao M.B.B.S., MJj. 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
--- OUTSIDE RECORDS SUMMARY | 2023-11-05 14:52 | XMS_ITS | Encounter Summary ---
Author Name Unknown Organization [facility] Address [address] [place] [address] Care Team Providers Care Geriatric Social Worker Name Role Phone Unavailable Primary Care Provider Unavailabl e Reason for Visit * Reason Onset Date Comments Appointment 04/27/2023 Encounter Details Date Type Department Care Team (Late st Contact Info) Description 04/27/2023 Clinical Communication Department of Oncology in [place], [place] [address] [place] [phone] Anuj Henao M.B.B.S., MJj. [address] [place] [phone] Appointment Social History Tobacco Use Types Packs/Day Years [...] often do you attend chur ch or hinduism services? Never 09/05/2021 Do you belong to any clubs o r organizations such as pentecostalism groups, unions, fraternal or athletic groups, or [...] Answer Date Recorded PHQ-2 Score 4 09/12/2021 [facility] - Occupational Stress Questionnaire Answer Date [...] Master's degree (e.g., MA, MS, Greg, MEd, DYE MACHINE TENDER, BERNARDO) 07/24/2019 Sex and Gender Information Value Date Recorded Sex Assigned at Female 07/01/2019 12:33 PM CDT Gender Identity Female 07/01/2019 12:33 PM CDT Sexual Orientation Straight 07/01/2019 12 :33 PM CDT documented as of this encounter Plan of Treatment Upcoming Encounters Date Type Department Care Team (Latest Contact Info) Description 12/14/2023 10:30 AM SOFTWARE DESIGN ENGINEER Clinical Communication Virtual Review in [place], [place] 200 [place] [address] 12/17/2023 5:15 PM SOFTWARE DESIGN ENGINEER Appointment Department of Radiology, [facility], in [place], [place] [address] [place] [phone] Anuj Henao M.B.B.S., MPaco [address] [place] [phone] 12/18/2023 2:40 PM SOFTWARE DESIGN ENGINEER Office Visit Department of Oncology in [address] [phone] Anuj Henao M.B.B.S., M.D. [address] [place] [phone] documented as of this encounter Visit Diagnoses Not on filedocumented in this encounter Additional Health Concerns Assessment Noted Time PHQ-9 Depression Total Score: 14 021 7:02 AM SOFTWARE DESIGN ENGINEER documented as of this encounter
--- OUTSIDE RECORDS SUMMARY | 2023-11-05 14:52 | XMS_ITS | Encounter Summary ---
Author Name Unknown Organization [facility] Address [address] [place] [address] Care Team Providers Care Perianesthesia Manager Name Role Phone Unavailable Primary Care Provider Unavailabl e Reason for Visit * Outpatient (Routine) - Closed Specialty Diagnoses / Procedures Referred By Connie t Referred To Contact Oncology Diagnoses Malignant Neoplasm Of Breast Upper Outer Quadrant Female Left (HCC) Yeni May, JOSH, C.N.P., M.S.N. [address] [place] [phone] [facility] Referral ID Status Reason Start Date Expiration Date Visits Re quested Visits Authorized [id number] Closed 02/28/2023 02/27/2026 1 1 Encounter Details Date Type Department Care Team (Late st Contact Info) Description 03/09/2023 2:00 PM CDT Office Visit Department of Oncology in [place], [place] [address] [place] [phone] Aida Wellington APRN, C.N.P., M.S.N. [address] [place] [phone] Malignant Neoplasm Of Breast Female Left (HCC) (Primary Dx); Anxiety; Cramp And Spasm Social History Tobacco Use Types Packs/Day Years [...] any clubs o r organizations such as christian groups, unions, fraternal or athletic groups, or [...] Answer Date Recorded PHQ-2 Score 4 09/12/2021 [facility] - Occupational [...] Master's degree (e.g., MA, MS, Greg, MEd, PERMIT REVIEW ASSISTANT, BERNARDO) 07/24/2019 Sex and Gender Information Value [...] 03/09/2023 1:38 PM CD T Respiratory Rate - - Oxygen Saturation 99% 03/09/2023 1:38 PM CDT Inhaled Oxygen Concentration - - Weight 69.7 kg (153 lb 10.6 oz) 03/09/2023 1:38 PM CDT Height 165 cm (5' 4.96) 03/09/2023 1:38 PM CDT Body Mass Index 25.6 03/09/2023 1:38 PM CDT documented in this encounter Progress Notes * Aida Wellington APRN, C.N.P., M.S.N. - 03/09/2023 2:00 PM CDT SUBJECTIVE PRIMARY CARE PHYSICIAN No primary care provider on file. LOCAL ONCOLOGIST No care pulp mill team leader to display PRIMARY [facility] ONCOLOGIST Stephenie Gilman M.D. Yadav, Siddhartha, M.B.B.S., M.D. CHIEF COMPLAINT / REASON FOR VISIT Follow-up for breast cancer. HISTORY OF PRESENT ILLNESS Xiomara Crespo is a 72 y.o. female who presents for evaluation with the following oncologic history: ONCOLOGY HISTORY Oncology History Malignant Neoplasm Of Breast Female [...] 4 mm. Repeat ultrasound the left breast [facility] on 07/16/2019 showed the left breast lesion [...] free margin of 14 mm for both. [place] lymph node labeled 1. Had 1 lymphnode that was negative for metastatic carcinoma. [place] lymph node labeled as 2. Had 2 lymph nodes that were negative for metastatic carcinoma. The mastectomy specimen carried with it 8 axillary lymph nodes that were negative for metastatic carcinoma. 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 The following portions of the patient's history were reviewed and updated as appropriate: allergies, current medications, family history, medical history, social history, surgical history, and problem list. INTERVAL HISTORY: Mrs. 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 She had diagnostic mammo/US today showing the presence of multiple enlarging cysts with planned aspiration on 03/15/23. She is most concerned with all over muscle cramping discomfort that mostly occurs at night. This has been occurring to varying degrees for the past year, but worse the past 3-4 months. It affects her legs and chest wall. She has added an oral magnesium supplement at night in the past few weeks. She has also tried eating potassium and magnesium rich foods and increasing her water i ntake. She has also been stretching and is active in yoga, Pilates, pickleball and walking. She also notes intermittent diarrhea that she correlates to her chronic anxiety. 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 Migraine Headache 1970 Other Specified Health Status Lichen sclerosus 2015 Polyp Colon 2010 Past Surgical History: Procedure Laterality Date APPENDECTOMY age 14 BIOPSY SENTINEL LYMPH NODE AXILLARY - PREOPERATIVE LYMPHOSCINTIGRAPHY Left 07/29/2019 Procedure: BIOPSY SENTINEL LYMPH NODE AXILLARY, PREOPERATIVE LYMPHOSCINTIGRAPHY.; Surgeon: Nella Gerber M.D.; Location: [facility] OR DILATATION AND CURETTAGE 1997 MASTECTOMY - SIMPLE Left 07/29/2019 Procedure: MASTECTOMY SIMPLE.; Surgeon: Nella Gerber M.D.; Location: [facility] OR OTHER SURGICAL HISTORY 2009 rectocele repair [facility] PROCEDURE rectocele MEDICATIONS Current Outpatient Medications: qiszqpr-mxpipxrpmlzxe-qiaiboct (EXCEDRIN MIGRAINE) 250-250-65 mg per tablet, Take 1 tablet by mouthas needed for headaches. , Disp: , Rfl: buPROPion XL (WELLBUTRIN XL) 150 mg 24 hr tablet, Take 150 mg by mouth every morning., Disp: , Rfl: CHOLECALCIFEROL, VITAMIN D3, ORAL, Take 5,000 Units by mouth daily. , Disp: , Rfl: clobetasol (TEMOVATE) 0.05 % cream, Apply 1 application topically as needed (Lichen Sclerosis). , Disp: , Rfl: MAGNESIUM CITRATE ORAL, Take 470 mg by mouth as needed. , Disp: , Rfl: magnesium glycinate 100 mg magnesium capsule, Take by mouth., Disp: , Rfl: traZODone (DESYREL) 50 mg tablet, Take 50-100 mg by mouth at bedtime. Taking 50- 100 mg bedtime prn - pt reports usually taking two each night. , Disp: , Rfl: OBJECTIVE VITALS Vitals: 03/09/23 1338 BP: 146/82 Patient Position: Sitting Pulse: 73 Temp: 37.1 ??C Height: 165 cm Weight: 69.7 kg SpO2: 99% TempSrc: Tympanic PHYSICAL EXAMINATION General: This is a well-appearing adult female in no acute distress. She is alert and oriented to person, place and time. ECOG 0. Skin: Visible skin is warm, dry, intact; no concerning rashes or lesions. Lymph: No palpable adenopathy in cervical, supraclavicular, infraclavicular or axillary nodes. Lungs: Chest expansion symmetric. Normal respiratory effort. Lung sounds clear to auscultation bilaterally. Heart: S1-S2 with regular rate and rhythm. No murmurs, clicks or rubs. Breasts: Bilateral breasts were examined in both sitting and supine positions. Left breast surgically absent. Right breast- palpable cyst at the 9:00, 6:00 and 12:00 positions. No overlying erythema or skin changes. Current Therapy: Observation Current Disease Status: Undetermined ECOG Performance Status: 0 Intent of Therapy: Curative Intent to Change Therapy: Undecided/TBD LABS/IMAGING Reviewed. 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 Crespo presents today for evaluation regarding new breast lumps with radiographic evidence of several cysts and subsequent plans for cyst aspiration on 03/15/23. We discussed her chronic widespread cramping. Will get CBC and CMP today to rule out electrolyte imbalance. Recommend switching oral magnesium to Natural Calm powder mixed with 8 oz water taken at bedtime. She is also encouraged to stay active and continue stretching. She will follow-up as planned with Dr. Henao this fall. Aida Wellington APRN, PADDING GLUER PATIENT EDUCATION Ready to learn, no apparent learning barriers were identified; learning preferences include listening. Explained diagnosis and treatment plan; patient expressed understanding of the content. ADMINISTRATIVE BILLING I personally spent 40 minutes in care of the patient today. Time includes both non face to face andface to face patient care. documented in this encounter Miscellaneous Notes * Addendum Note - Aida Wellington APRN C.N.P., M.S.N. - 03/09/2023 2:00 PM CDTAddended by: AIDA WELLINGTON on: 03/09/2023 03:53 PM Modules accepted: Orders documented in this encounter Plan of Treatment Upcoming Encounters Date Type Department Care Team (Latest Contact Info) Description 12/14/2023 10:30 AM SENIOR ENGINEERING TEAM LEADER Clinical Communication Virtual Review in [place], [place] [address] [place] [address] 12/17/2023 5:15 PM SENIOR ENGINEERING TEAM LEADER Appointment Department of Radiology, [facility], in [place], [place] [address] [place] [phone] Anuj Henao M.B.B.S., Gino [address] [place] [phone] 12/18/2023 2:40 PM SENIOR ENGINEERING TEAM LEADER Office Visit Department of Oncology in [place], [place] [address] [place] [phone] Anuj Henao M.B.B.S., Gino [address] [place] [phone] documented as of this encounter Results * Comprehensive Metabolic Panel (03/09/2023 2:35 PM CDT) [facility] Potassium, S 4.5 3.6 - 5.2 mmol/L 03/09/2023 3:47 PM CDT DTL Sodium, S 141 135 - 145 mmol/L 03/09/2023 3:47 PM CDT DTL Chloride, S 102 98 - 107 mmol/L 03/09/2023 3:47 PM CDT DTL Bicarbonate, S 28 22 - 29 mmol/L 03/09/2023 3:47 PM CDT DTL Anion Gap 11 7 - 15 03/09/2023 3:47 PM CDT DTL BUN (Blood Urea Nitrogen), S 16 6 - 21 mg/dL 03/09/2023 3:47 PM CDT DTL Creatinine 0.83 0.59 - 1.04 mg/dL 03/09/2023 3:47 PM CDT DTL Estimated GFR (eGFR) 76 >=60 mL/min/BS A 03/09/2023 3:47 PM CDT DTL Comment: Estimated GFR calculated using the 2020 CKD_EPI creatinine equation. Calcium, Total, S 9.8 8.8 - 10.2 mg/dL 03/09/2023 3:47 PM CDT DTL Glucose, S 89 70 - 140 mg/dL 03/09/2023 3:47 PM CDT DTL Protein, Total, S 7.1 6.3 - 7.9 g/dL 03/09/2023 3:47 PM CDT DTL Albumin, S 4.3 3.5 - 5.0 g/dL 03/09/2023 3:47 PM CDT DTL Aspartate Aminotransferase (AST), S 23 8 - 43 U/L 03/09/2023 3:47 PM CDT DTL Alkaline Phosphatase, S 73 35 - 104 U/L 03/09/2023 3:47 PM CDT DTL Alanine Aminotransferase (ALT), S 24 7 - 45 U/L 03/09/2023 3:47 PM CDT DTL Bilirubin, Total, S 0.4 <=1.2 mg/dL 03/09/2023 3:47 PM CDT DTL Blood (Blood, Venous) 03/09/2023 2:35 PM CDT 03/09/2023 3:31 PM CDT Nima Price APRNN.P., M.S.N. LAB BLOOD ADD-ON [address] [address], [facility] [address] [address] * CBC with Differential, Blood (03/09/2023 2:35 PM CDT) Hemoglobin 13.9 11.6 - 15.0 g/dL 03/09/2023 3:22 PM CDT DTL Hematocrit 42.1 35.5 - 44.9 % 03/09/2023 3:22 PM CDT DTL Erythrocytes 4.58 3.92 - 5.13 x10(12)/L 03/09/2023 3:22 PM CDT DTL MCV 91.9 78.2 - 97.9 fL 03/09/2023 3:22 PM CDT DTL RBC Distrib Width 13.2 12.2 - 16.1 % 03/09/2023 3:22 PM CDT DTL Platelet Count 275 157 - 371 x10(9)/L 03/09/2023 3:22 PM CDT DTL Leukocytes 8.7 3.4 - 9.6 x10(9)/L 03/09/2023 3:22 PM CDT DTL Neutrophils 4.89 1.56 - 6.45 x10(9)/L 03/09/2023 3:22 PM CDT DTL Lymphocytes 2.90 0.95 - 3.07 x10(9)/L 03/09/2023 3:22 PM CDT DTL Monocytes 0.52 0.26 - 0.81 x10(9)/L 03/09/2023 3:22 PM CDT DTL Eosinophils 0.33 0.03 - 0.48 x10(9)/L 03/09/2023 3:22 PM CDT DTL Basophils 0.07 0.01 - 0.08 x10(9)/L 03/09/2023 3:22 PM CDT DTL Blood (Blood, Venous) 03/09/2023 2:35 PM CDT 03/09/2023 3:14 PM CDT Alexander Price APRN.N.Kelsie., M.S.N. LAB BLOOD ADD-ON Performing Organization Address City/[facility]/ZIP Co de Phone Number [address] [address], [facility] 200 [place] [address] * Magnesium (03/09/2023 2:31 PM CDT) Magnesium, S 2.2 1.7 - 2.3 mg/dL 03/09/2023 5:10 PM CDT DTL Blood (Blood, Venous) 03/09/2023 2:31 PM CDT 03/09/2023 4:54 PM CDT Alexander Price APRN.N.Kelsie., M.S.N. LAB BLOOD ADD-ON [facility] [address] [place] [address], [place] DTL [facility] [address] [place] [address] documented in this encounter Visit Diagnoses Diagnosis Malignant Neoplasm Of Breast Female Left (HCC)- Primary Anxiety Cramp And Spasm documented in this encounter Additional Health Concerns Assessment Noted Time PHQ-9 Depression Total Score: 14 09/12/ 021 7:02 AM SENIOR ENGINEERING TEAM LEADER documented as of this encounter
--- OUTSIDE RECORDS SUMMARY | 2023-11-05 14:52 | XMS_ITS | Encounter Summary ---
Author Name Unknown Organization [facility] Address [address] [place] [address] Care Team Providers Care Data Communications Analyst Name Role Phone Unavailable Primary Care Provider Unavailabl e Encounter Details Date Type Department Care Team (Late st Contact Info) Description 03/01/2023 Clinical Communication Department of Oncology in [place], [place] [address] [place] [phone] Yeni May, JOSH, C.N.P., M.S.N. [address] [place] [phone] Social History Tobacco Use Types Packs/Day Years [...] often do you attend chur ch or islam services? Never 09/05/2021 Do you belong to any clubs o r organizations such as pentecostal groups, unions, fraternal or athletic groups, or [...] Answer Date Recorded PHQ-2 Score 4 09/12/2021 [facility] Occupat [facility] - Occupational Stress Questionnaire Answer Date [...] place to sleep or slept in a half-way (including now)? No 09/05/2021 Depression Answer Date [...] Master's degree (e.g., MA, MS, Greg, MEd, COMMUNITY HEALTH PROGRAM REPRESENTATIVE, BERNARDO) 07/24/2019 Sex and Gender Information Value Date Recorded Sex Assigned at Female 07/01/2019 12:33 PM CDT Gender Identity Female 07/01/2019 12:33 PM CDT Sexual Orientation Straight 07/01/2019 12 :33 PM CDT documented as of this encounter Plan of Treatment Upcoming Encounters Date Type Department Care Team (Latest Contact Info) Description 12/14/2023 10:30 AM BREAD SUPERVISOR Clinical Communication Virtual Review in [place], [place] 200 [place] [address] 12/17/2023 5:15 PM BREAD SUPERVISOR Appointment Department of Radiology, [facility], in [place], [place] [address] [place] [phone] Anuj Henao M.B.B.S., MPaco [address] [place] [phone] 12/18/2023 2:40 PM BREAD SUPERVISOR Office Visit Department of Oncology in [place], [place] [address] [place] [phone] Anuj Henao M.B.B.S., MPaco [address] [place] [phone] documented as of this encounter Visit Diagnoses Not on filedocumented in this encounter Additional Health Concerns Assessment Noted Time PHQ-9 Depression Total Score: 14 09/12/ 021 7:02 AM BREAD SUPERVISOR documented as of this encounter
--- OUTSIDE RECORDS SUMMARY | 2023-11-05 14:52 | XMS_ITS | Encounter Summary ---
Author Name Unknown Organization [facility] Address [address] [place] [address] Care Team Providers Care Party Supply Specialist Name Role Phone Unavailable Primary Care Provider Unavailabl e Reason for Referral * Outpatient (Routine) - Closed Specialty Diagnoses / Procedures Referred By Contac t Referred To Contact Diagnoses Breast Examination Abnormal Procedures BI Breast Cyst Aspiration Right with Ultrasound Guidance Yeni May APRN, C.N.Kelsie., M.S.N. [address] [place] [phone] [facility] Referral ID Status Reason Start Date Expiration Date Visits Re quested Visits Authorized [id number] Closed 03/09/2023 03/08/2024 1 1 Reason for Visit * Outpatient (Routine) - Closed Specialty Diagnoses / Procedures Referred By Contac t Referred To Contact Diagnoses Breast Examination Abnormal Procedures BI Breast Cyst Aspiration Right with Ultrasound Guidance Yeni May APRN, C.NRyanne., M.S.N. [address] [place] [phone] [facility] Referral ID Status Reason Start Date Expiration Date Visits Re quested Visits Authorized [id number] Closed 03/09/2023 03/08/2024 1 1 Encounter Details Date Type Department Care Team (Latest Contact Info) Description 03/15/2023 8:14 AM CDT - 03/15/2023 11:59 PM CDT Hospital Encounter Department of Radiology in [place], [place] [address] [place] [address] Yeni May, JOSH, C.N.P., M.S.N. [address] [place] [address] Breast Examination Abnormal Discharge Disposition: Home or Self Care Social [...] 09/05/2021 How often do you attend chur [place] or yazidism services? Never 09/05/2021 Do you belong to any clubs o r organizations such as faith groups, unions, fraternal or athletic groups, or [...] Answer Date Recorded PHQ-2 Score 4 09/12/2021 [facility] [place] of Occupat ional Health - Occupational Stress [...] Master's degree (e.g., MA, MS, Greg, MEd, BIOSTATISTICIAN, BERNARDO) 07/24/2019 Sex and Gender Information Value Date Recorded Sex Assigned at Female 07/01/2019 12:33 PM CDT Gender Identity Female 07/01/2019 12:33 PM CDT Sexual Orientation Straight 07/01/2019 12 :33 PM CDT documented as of this encounter Medications at Time of Discharge Medication Sig Dispensed Refills Start Date End Date hbhaula-cjnatmqacvulg-x affeine (EXCEDRIN MIGRAINE) 250-250-65 mg per tablet [...] (Latest Contact Info) Description 12/14/2023 10:30 AM NEWS SPECIALIST Clinical Communication Virtual Review in [address] [address] 12/17/2023 5:15 PM NEWS SPECIALIST Appointment Department of Radiology, [facility], in [address] [phone] Anuj Henao M.B.B.SIgnacio, M.D. [address] [place] [phone] 12/18/2023 2:40 PM NEWS SPECIALIST Office Visit Department of Oncology in [address] [phone] Juliano, Love Leslie M.D. [address] [place] [address] documented as of this encounter Procedures Procedure Name Priority Date/Time Associated Diagnosis Comments BI BREAST CYST ASPIRATION RIGHT WITH ULTRASOUND GUIDANCE RAD - Routine (most inpatients and all outpatients) 03/15/2023 8:49 AM CDT Breast Examination Abnormal documented in this encounter Results * BI Breast Cyst Aspiration Right with Ultrasound Guidance (03/15/2023 8:49 AM CDT) Anatomical Region Laterality Modality Breast, Breast Imaging RST L OS, Breast Imaging ARZ LOS, Breast Imaging FLA LOS Right Ultrasound 03/15/2023 9:56 AM CDT Impressions 03/15/2023 9:57 AM CDT Successful ultrasound-guided breast cyst aspiration. RECOMMENDATION: ??Annual Screening Mammogram ASSESSMENT: ??BI-RADS: 2: Benign. NR Narrative 03/15/2023 9:57 AM CDT EXAM: ??BI BREAST CYST ASPIRATION RIGHT WITH ULTRASOUND GUIDANCE INDICATION: ??Symptomatically cysts. LESION/LOCATION: ??6 o'clock position 3 cm from the nipple and 5 o'clock position 2 cm from the nipple TECHNIQUE: ??Ultrasound guided needle aspiration. Local anesthesia, 1% lidocaine. NEEDLE: ??18g needle. FLUID AMOUNT/COLOR: ??5 cc of johny-colored clear benign cyst fluid FLUID: ??Fluid was discarded. MARKING CLIP: ??None. POST-PROCEDURE DIGITAL IMAGING: ??None COMPLICATIONS: ??None. CONSENT: ??Patient seen, evaluated, and history reviewed. Discussed risks, benefits, alternatives for procedure, and obtained informed consent. ??Patient understands information and questions answered. Immediately prior to starting the procedure, in the presence of the assisting personnel, procedural pause was conducted to verify correct patient identity and verification of procedure to be performed, and as applicable, correct side and site, correct patient position, availability of implants, special equipment, or special requirements, and all image and specimen identification data. The roles and responsibilities of care team members, residents, and fellows were discussed. The medication list was reviewed and there are no changes to current medications. PATIENT EDUCATION: ??Provided by a care cps team lead. Ready to learn, no apparent learning barriers were identified. Post-procedure care explained; patient expressed understanding of the content. Procedure Note Pebbles Barnes M.D. - 03/15/2023 EXAM: BI BREAST CYST ASPIRATION RIGHT WITH ULTRASOUND GUIDANCE INDICATION: Symptomatically cysts. LESION/LOCATION: 6 o'clock position 3 cm from the nipple and 5 o'clockposition 2 cm from the nipple TECHNIQUE: Ultrasound guided needle aspiration. Local anesthesia, 1%lidocaine. NEEDLE: 18g needle. FLUID AMOUNT/COLOR: 5 cc of johny-colored clear benign cyst fluid FLUID: Fluid was discarded. MARKING CLIP: None. POST-PROCEDURE DIGITAL IMAGING: None COMPLICATIONS: None. CONSENT: Patient seen, evaluated, and history reviewed. Discussed risks,benefits, alternatives for procedure, and obtained informed consent. Patient understands informationand questions answered. Immediately prior to starting the procedure, in the presence of theassisting personnel, procedural pause was conducted to verify correct patient identity and verification ofprocedure to be performed, and as applicable, correct side and site, correct patientposition, availability of implants, special equipment, or special requirements, and all image andspecimen identification data. The roles and responsibilities of care team members, residents, andfellows were discussed. The medication list was reviewed and there are no changes to currentmedications. PATIENT EDUCATION: Provided by a care cps team lead. Ready to learn, noapparent learning barriers were identified. Post-procedure care explained; patient expressedunderstanding of the content. IMPRESSION: Successful ultrasound-guided breast cyst aspiration. RECOMMENDATION: Annual Screening Mammogram ASSESSMENT: BI-RADS: 2: Benign. NR Yeni May APRN, C.N.P., M.S.N. IMG BI PROCEDURES documented in this encounter Visit Diagnoses Diagnosis Breast Examination Abnormal documented in this encounter Administered Medications Inactive Administered Medications - up to 3 most recent administrations Medication Order MAR Action Action Date Dose Rate Site lidocaine-sodium bicarbonate (buffered) 0.9%-8.4% injection infiltration, As needed, Starting on Jennifer 03/15/23 at 0845, Intra-Op Given 03/15/2023 8:45 AM CDT 2 mL Rig ht Breast documented in this encounter Additional Health Concerns Assessment Noted Time PHQ-9 Depression Total Score: 14 09/12/ 021 7:02 AM NEWS SPECIALIST documented as of this encounter
--- OUTSIDE RECORDS SUMMARY | 2023-11-05 14:53 | XMS_ITS | Encounter Summary ---
Author Name Unknown Organization [facility] Address [address] [place] [address] Care Team Providers Care Hotel Valet Attendant Name Role Phone Unavailable Primary Care Provider Unavailabl e Encounter Details Date Type Department Care Team (Latest Contact Info) Description 12/22/2022 9:15 AM BUILDING REPAIR MAINTENANCE SUPERVISOR Clinical Communication Virtual Review in [place], [place] [address] [place], [place] [phone] Social History Tobacco Use Types Packs/Day Years [...] often do you attend chur ch or synagogue services? Never 09/05/2021 Do you belong to [...] Answer Date Recorded PHQ-2 Score 4 09/12/2021 [facility] of Occupat ional Health - Occupational Stress [...] place to sleep or slept in a fdc (including now)? No 09/05/2021 Depression Answer Date [...] Master's degree (e.g., MA, MS, Greg, MEd, TRIMMING MACHINE SET UP OPERATOR, BERNARDO) 07/24/2019 Sex and Gender Information Value Date Recorded Sex Assigned at Female 07/01/2019 12:33 PM CDT Gender Identity Female 07/01/2019 12:33 PM CDT Sexual Orientation Straight 07/01/2019 12 :33 PM CDT documented as of this encounter Plan of Treatment Upcoming Encounters Date Type Department Care Team (Latest Contact Info) Description 12/14/2023 10:30 AM BUILDING REPAIR MAINTENANCE SUPERVISOR Clinical Communication Virtual Review in [place], [place] [address] [place] [address] 12/17/2023 5:15 PM BUILDING REPAIR MAINTENANCE SUPERVISOR Appointment Department of Radiology, [facility], in [address] [phone] Anuj Henao M.B.BIgnacioSIgnacio, MPaco [address] [place] [phone] 12/18/2023 2:40 PM BUILDING REPAIR MAINTENANCE SUPERVISOR Office Visit Department of Oncology in [address] [phone] Anuj Henao M.B.B.S., MPaco [address] [place] [phone] documented as of this encounter Visit Diagnoses Not on filedocumented in this encounter Additional Health Concerns Assessment Noted Time PHQ-9 Depression Total Score: 14 09/12/ 021 7:02 AM BUILDING REPAIR MAINTENANCE SUPERVISOR documented as of this encounter
--- OUTSIDE RECORDS SUMMARY | 2023-11-05 14:53 | XMS_ITS | Encounter Summary ---
Author Name Unknown Organization [facility] Address [address] [place] [address] Care Team Providers Care Spa Assistant Manager Name Role Phone Unavailable Primary Care Provider Unavailabl e Reason for Referral * MRI/CAT/PET Scan (Routine) - Closed Specialty Diagnoses / Procedures Referred By Connie orladno Referred To Contact Radiology Diagnoses Cancer Breast Personal History Procedures MR Breast Bilateral without and with IV Contrast Anuj Henao M.B.B.S., M.D. [address] [place] [address] [facility] Referral ID Status Reason Start Date Expiration Date Visits Re quested Visits Authorized [id number] Closed 06/06/2022 06/06/2023 1 1 ICATION SUPPORT DEVELOPER Reason for Visit * MRI/CAT/PET Scan (Routine) - Closed Specialty Diagnoses / Procedures Referred By Connie orlando Referred To Contact Radiology Diagnoses Cancer Breast Personal History Procedures MR Breast Bilateral without and with IV Contrast Anuj Henao M.B.B.S., M.D. [address] [place] [phone] [facility] Referral ID Status Reason Start Date Expiration Date Visits Re quested Visits Authorized [id number] Closed 06/06/2022 06/06/2023 1 1 Encounter Details Date Type Department Care Team (Latest Contact Info) Description 12/26/2022 6:14 AM APPLICATION SUPPORT DEVELOPER - 12/26/2022 11:59 PM APPLICATION SUPPORT DEVELOPER Hospital Encounter Department of Radiology, [facility], in [place], [place] [address] [place] [address] Anuj Henao M.B.B.S., M.D. 200 [place] [phone] Cancer Breast Personal History Discharge Disposition: Home or Self Care Social [...] any clubs o r organizations such as jewish groups, unions, fraternal or athletic groups, or [...] Answer Date Recorded PHQ-2 Score 4 09/12/2021 [facility] of Occupat ional [facility] - Occupational Stress Questionnaire Answer Date [...] place to sleep or slept in a detention (including now)? No 09/05/2021 Depression Answer Date [...] received? Master's degree (e.g., MA, MS, Greg, Galina, CATTLE DEHORNER, BERNARDO) 07/24/2019 Sex and Gender Information Value Date Recorded Sex Assigned at Female 07/01/2019 12:33 PM CDT Gender Identity Female 07/01/2019 12:33 PM CDT Sexual Orientation Straight 07/01/2019 12 :33 PM CDT documented as of this encounter Medications at Time of Discharge Medication Sig Dispensed Refills Start Date End Date aspirin-acetaminophen- caffeine (EXCEDRIN MIGRAINE) 250-250-65 mg per tablet Take [...] 470 mg by mouth as needed. 0 traZODone (DESYREL) 50 mg tablet Take 50-100 mg by mouth at bedtime. Taking 50-100 mg bedtime prn - pt reports usually taking two each night. 0 multivitamin capsule Take 1 capsule by mouth daily. 0 12/29/2019 03/08/2023 documented as of this encounter Plan of Treatment Upcoming Encounters Date Type Department Care Team (Latest Contact Info) Description 12/14/2023 10:30 AM APPLICATION SUPPORT DEVELOPER Clinical Communication Virtual Review in [address] [address] 12/17/2023 5:15 PM APPLICATION SUPPORT DEVELOPER Appointment Department of Radiology, [facility], in [address] [phone] Anuj Henao M.B.B.S., MJj. [address] [place] [phone] 12/18/2023 2:40 PM APPLICATION SUPPORT DEVELOPER Office Visit Department of Oncology in [address] [phone] Anuj Henao M.B.B.S., M.D. [address] [place] [address] documented as of this encounter Procedures Procedure Name Priority Date/Time Associated Diagnosis Comments MR BREAST BILATERAL WITHOUT AND WITH IV CONTRAST RAD - Routine (most inpatients and all outpatients) 12/26/2022 7:31 AM APPLICATION SUPPORT DEVELOPER Cancer Breast Personal History documented in this encounter Results * MR Breast Bilateral without and with IV Contrast (12/26/2022 7:31 AM APPLICATION SUPPORT DEVELOPER) Anatomical Region Laterality Modality Breast, Breast Imaging RST L OS, Breast Imaging ARZ LOS, Breast Imaging FLA LOS Bilateral Magnetic Resonance 12/26/2022 8:41 AM APPLICATION SUPPORT DEVELOPER Impressions 12/26/2022 8:55 AM APPLICATION SUPPORT DEVELOPER 1. Prior left breast mastectomy without findings to suggest recurrence. 2. No MR findings of malignancy within the right breast within the confines of moderate background parenchymal enhancement. RECOMMENDATION: ??Annual Screening Mammogram Screening as appropriate given personal risk of breast cancer. ASSESSMENT: ??BI-RADS: 2: Benign. 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 HORMONAL STATUS: ??Postmenopausal. ??No hormone replacement therapy. COMPARISON: ??Prior exam(s) were available and reviewed for comparison. TECHNIQUE: ??Dynamic enhanced protocol using IV contrast administration with T1 and T2-weighted images and CAD image analysis. FIBROGLANDULAR TISSUE: ??c. Heterogeneous fibroglandular tissue. ?? BACKGROUND PARENCHYMAL ENHANCEMENT: ??c. Moderate FINDINGS: RIGHT BREAST: ??Moderate background enhancement limits exam sensitivity. Numerous cysts of varying sizes and composition which have waxed and waned over time. No MRI findings of malignancy in the right breast. RIGHT AXILLA: ??No right axillary lymphadenopathy. ?? LEFT BREAST: ??Status post mastectomy without findings to suggest recurrence along the chest wall or operative bed. LEFT AXILLA: ??No left axillary lymphadenopathy. ?? CHEST WALL: ??No internal mammary lymphadenopathy. ?? Procedure Note Glenda Bowman M.D. - 12/26/2022 EXAM: MR BREAST BILATERAL WITHOUT AND WITH IV CONTRAST INDICATION: Elevated risk screening HISTORY: History of triple negative metaplastic adenosquamous left breastcancer status post mastectomy and 2019 currently under observation. HORMONAL STATUS: Postmenopausal. No hormone replacement therapy. COMPARISON: Prior exam(s) were available and reviewed for comparison. TECHNIQUE: Dynamic enhanced protocol using IV contrast administrationwith T1 and T2-weighted images and CAD image analysis. FIBROGLANDULAR TISSUE: c. Heterogeneous fibroglandular tissue. BACKGROUND PARENCHYMAL ENHANCEMENT: c. Moderate FINDINGS: RIGHT BREAST: Moderate background enhancement limits exam sensitivity.Numerous cysts of varying sizes and composition which have waxed and waned over time. No MRIfindings of malignancy in the right breast. RIGHT AXILLA: No right axillary lymphadenopathy. LEFT BREAST: Status post mastectomy without findings to suggestrecurrence along the chest wall or operative bed. LEFT AXILLA: No left axillary lymphadenopathy. CHEST WALL: No internal mammary lymphadenopathy. IMPRESSION: 1. Prior left breast mastectomy without findings to suggest recurrence. 2. No MR findings of malignancy within the right breast within theconfines of moderate background parenchymal enhancement. RECOMMENDATION: Annual Screening Mammogram Screening as appropriate given personal risk of breast cancer. ASSESSMENT: BI-RADS: 2: Benign. Anuj Aleman M.D. [facility] MRI PROCEDURES documented in this encounter Visit Diagnoses Diagnosis Cancer Breast Personal History documented in this encounter Administered Medications Inactive Administered Medications - up to 3 most recent administrations Medication Order MAR Action Action Date Dose Rate Site gadobutrol injection 0.01-30 mL (GADAVIST) 0.01-30 mL, intravenous, Once in imaging, contrast, Starting on Sun12/26/22 at 0629, For 1 dose, Imaging Protocol Orders, Dose per Radiant Medication Guidelines Intrathecal doses greater than 0.25 mL not recommended. Given 12/26/2022 7:13 AM APPLICATION SUPPORT DEVELOPER 7 mL sodium chloride (PF) 0.9 % injection 1-100 mL 1-100 mL, intravenous, Once, On 2/28/23 at 0630, For 1 dose, Imaging Protocol Orders Given 12/26/2022 7:14 AM APPLICATION SUPPORT DEVELOPER 20 mL documented in this encounter Additional Health Concerns Assessment Noted Time PHQ-9 Depression Total Score: 14 021 7:02 AM APPLICATION SUPPORT DEVELOPER documented as of this encounter
== END 2023-11-05 14:46 | disposition home or self-care (01) ==
PROVIDERS: PCP Internal Medicine; Visit Provider Family Medicine
DX: R10.9 Unspecified abdominal pain (principal)
CPT/HCPCS: 80053; 85025; 86140

== ENCOUNTER 2023-11-21 14:15 | Outpatient (CLI) | payer MEDICARE, BC, SELFPAY ==
--- NOTE | 2023-11-21 14:30 | CRLHL7_ITS ---
For Patients: As a result of the Century Cures Act, medical imaging exams and procedure reports are released immediately into your electronic medical record. You may view this report before your referring provider. If you have questions, please contact your health care provider. Indication: Thoracic spine pain. History of breast cancer. Technique: Multiplanar, multisequence MRI of the thoracic spine was performed without and with the use of 15 cc Dotarem intravenous contrast. Comparison: None relevant available at the time of interpretation. Findings: The vertebral body heights are maintained without evidence of fracture. No marrow infiltrative process. Mild multilevel disc height loss and desiccation preserved. No spondylolisthesis. Hemangiomas noted within the T9 and T11 vertebral bodies. No abnormal cord signal. No abnormal enhancement. T10-11: Disc bulge with facet hypertrophy combine to result in mild spinal canal narrowing. Mild left neural foraminal narrowing. T11-12: Disc bulge with facet hypertrophy combine to result in mild spinal canal narrowing. Mild to moderate neural foraminal narrowing. Reactive/active facet degeneration on the left. There is milder spondylosis at the remaining thoracic levels. Incidental note is made of a 1.5 cm left thyroid nodule. Impression: 1. No evidence to suggest thoracic spine metastases. 2. Mild multilevel thoracic spondylosis, most notably at T10-11 and T11-12. 3. Active facet degeneration on the left at T11-12. 4. No abnormal cord signal. 5. Incidental note of a 1.5 cm left thyroid nodule. Consider further characterization with thyroid ultrasound. Dictated by Ray Armijo MD @ 11/22/2023 10:34:40 AM (Electronically Signed)
== END 2023-11-21 14:16 | disposition home or self-care (01) ==
LOC: MRI 14:16
PROVIDERS: PCP Internal Medicine; Visit Provider Internal Medicine
DX: M54.6 Pain in thoracic spine (principal); M47.894 Other spondylosis, thoracic region; E04.1 Nontoxic single thyroid nodule; Z85.3 Personal history of malignant neoplasm of breast
CPT/HCPCS: 72157; A9575

== ENCOUNTER 2023-11-26 13:40 | Outpatient (CLI) | payer MEDICARE, BC, SELFPAY ==
--- OUTSIDE RECORDS SUMMARY | 2023-11-26 13:43 | XMS_ITS | Clinical Summary ---
Author Name Unknown Organization [facility] Address [place], [place] [address] Care Team Providers Care Bonding Molder Name Role Phone Liat Lee MD Primary Care Provider [phone] Allergies Active Allergy Reactions Criticality Noted Date Comments Sulfa (Sulfonamide Antibiotics) Rash,Itching Sulfa (Sulfonamide Antibiotics) Rash 06/30 Medications Medication Sig Dispensed Refills Start Date End Date Status clobetasol 0.05% (TEMOVATE 0.05% OINTMENT) 0.05 % ointment Apply topically to affected area(s) 2 times daily. 1 Tube 0 04/22/2010 Active Magnesium Glycinate 100 mg Tab Take by mouth. 0 08/07/2011 Active L Glutamine-N cohh-Rnw-Yaf-Min 10600-140 g-mg-mg Pack Take by mouth. 0 [...] Abnormal brain MRI 01/29/2012 Overview: Done at [facility] in 2010, 3 cm white matter lesion, a few other small lesions, nonspecific findings. Lichen sclerosus 01/25/2012 Overview: Followed at [facility] as of 01/25/2012 Memory loss 10/02/2011 Immunizations [...] ST Respiratory Rate 20 09/08/2017 8:18 PM DIRECT CARE WORKER Oxygen Saturation 98% 08/03/2021 10: 18 AM CDT Inhaled Oxygen Concentration - - Weight 66.6 kg (146 lb 12.8 oz) 021 10:18 AM CDT Height 165.1 cm (5' 5) 09/10/2019 8:00 AM DIRECT CARE WORKER Body Mass Index 24.43 09/10/2019 8:00 AM DIRECT CARE WORKER Plan of Treatment Health Maintenance Due Date [...] for age 65+ 06/29/2023 Tdap Completed 10/02/2011 Insurance Payer Benefit Plan / Group Subscriber ID Effective Dates Phone Address Type WC WORKERS COMP WC WORKERS COMP [id number] 2011-Prese nt [phone] [address] MEDICARE PART B - HB USE ONLY MEDICARE PART B HB ONLY [id number] 2017-Prese nt ATTN: CLAIMS [address] [place] [address] [facility] [id number] 2020-Prese nt [address] [place] [address] BLUE CROSS MR BLUE CROSS [place] BLUE MR PB ONLY [id number] 2017-Prese nt [address] [address] [place] [address] MEDICARE - PB USE ONLY MEDICARE PB ONLY [id number] 2017-Prese nt ATTN: CLAIMS [address] [place] [address] [facility] [id number] 2018-Presen t [address] [place] [address] Advance Directives Latest Code Status on File Code Status Date Activated Date Inactivated Comments Full Code 05/08/2007 8:41 AM 05/08/2007 3:58 PM Code Status History Code Status Date Activated Date Inactivated Comments Full Code 05/08/2007 6:32 AM 05/08/2007 8:41 AM Care Teams Bonding Molder Relationship Specialty Start Date End Date Liat Lee MD [address] [place] [address] PCP - General 12/07/14
--- OUTSIDE RECORDS SUMMARY | 2023-11-26 13:43 | XMS_ITS | Referral Summary ---
Author Name Unknown Organization [facility] Address [address] [place] [address] Care Team Providers Care Director Of Collections Name Role Phone Unavailable Primary Care Provider Unavailabl e Source Comments Patient records contain information from all sites at [facility]. For routine questions regarding patient records, call [phone] during business hours, M-F 8:00 AM - 5:00 PM Central Time. Record requests for emergency care only can be directed to [phone] at any time.[facility] Allergies Active Allergy Reactions Criticality Noted [...] 11/19/2018 RZV (SHINGRIX) 07/15/2019(Deferred: Not available from component overhaul operator) Td Preservative Free (TENIVA C, DECAVAC) 07/30/2020 [...] often do you attend chur ch or yarsanism services? Never 09/05/2021 Do you belong to any clubs o r organizations such as denominational groups, unions, fraternal or athletic groups, or [...] Answer Date Recorded PHQ-2 Score 4 09/12/2021 [facility] - Occupational Stress Questionnaire Answer Date [...] place to sleep or slept in a custodial (including now)? No 09/05/2021 Depression Answer Date [...] Master's degree (e.g., MA, MS, Greg, MEd, FISH NET STRINGER, BERNARDO) 07/24/2019 Sex and Gender Information Value [...] T Respiratory Rate 16 12/26/2022 1:07 PM GENERAL SERVICE OFFICER Oxygen Saturation 99% 03/09/2023 1:38 PM CDT Inhaled Oxygen Concentration - - Weight 69.7 kg (153 lb 10.6 oz) 03/09/2023 1:38 PM CDT Height 165 cm (5' 4.96) 03/09/2023 1:38 PM CDT Body Mass Index 25.6 03/09/2023 1:38 PM CDT Plan of Treatment Upcoming Encounters Date Type Department Care Team (Latest Contact Info) Description 12/14/2023 10:30 AM GENERAL SERVICE OFFICER Clinical Communication Virtual Review in [place], [place] [address] [place] [address] 12/17/2023 5:15 PM GENERAL SERVICE OFFICER Appointment Department of Radiology, [facility], in [place], [place] [address] [place] [phone] Anuj Henao M.B.B.S., MPaco [address] [place] [phone] 12/18/2023 2:40 PM GENERAL SERVICE OFFICER Office Visit Department of Oncology in [address] [phone] Anuj Henao M.B.B.S., MPaco [address] [place] [phone] Medical Devices Implanted Type Area Administrative Library Assistant Device Identifier Shelf Expiration Date Model / Serial / Lot Clp Hrzn Ti 6 Deven Clemons [facility] - [id number] Implanted:Qty: 2 on 07/29/2019 by Nella Gerber M.D. at [facility] Hardware e.g. pins/screws/r ods [employer] [id number] / / Explanted Type Area Administrative Library Assistant Device Identifier Shelf Expiration Date Model / Serial / Lot Imaging Marker Explanted:10/2018 (Quantity not on file) Imaging Marker Breast Procedures Procedure Name Priority Date/Time Associated Diagnosis Comments OUTSIDE MR NEURO Routine 11/21/2023 2:40 PM GENERAL SERVICE OFFICER from Last 3 Months Results * MR THORACIC SPINE WO/W CON-Outside MR Neuro (11/21/2023 2:40 PM GENERAL SERVICE OFFICER) 11/21/2023 2:39 PM GENERAL SERVICE OFFICER Narrative IIMS - 11/21/2023 4:04 PM GENERAL SERVICE OFFICER This order has been created and auto-finalized to support the import of outside images. If available, original interpretation can be found on the Media Tab in Chart Review, in Document Viewer, or as an image in QREADS. If a re-interpretation or overread is required please follow defined workflow. ?? Provider Not In System IMG MRI PROCEDURE S IIMS NA from Last 3 Months Advance Directives For more information, please contact: [phone] Latest Code Status on File Code Status [...]
--- OUTSIDE RECORDS SUMMARY | 2023-11-26 13:43 | XMS_ITS ---
Author Name Unknown Organization [facility] Address [address] [place] [address] Care Team Providers Care Stamp Machine Servicer Name Role Phone Unavailable Primary Care Provider [...] treatments are documented for this patient in [facility]. Treatments may have been administered in another [...] was developed by a multidisciplinary team of [place] cancer providers to help you understand, discuss, [...] palacios M.D. - Radiation Oncology Yuridia Lainez [facility] Counselor - Clinical Genomics Michaela Sharpe APRN, [...] 4 mm. Repeat ultrasound the left breast [facility] on 07/16/2019 showed the left breast lesion [...] free margin of 14 mm for both. [place] lymph node labeled 1. Had 1 lymphnode that was negative for metastatic carcinoma. [place] lymph node labeled as 2. Had 2 [...] are largely based on guidelines from the [place] Society of Clinical Oncology (ASCO), the biggest cancer society regarding clinical practice. -Physical examinations should be performed every 3 to 6 months for the first 3 years, every 6 to 12months for years 4 and 5, and annually thereafter. Surveillance visits How often: Every three months With Who: Medical Oncology Additional information: Imaging (mammograms) How often: yearly Where: [place] Additional information: Follow-up care with your Primary [...] you, such as physical therapists, occupational therapists, biodiesel plant superintendent, or mental health care providers Coping With [...] spiritual framework. -Talk with your spiritual or squad leader to help guide you through some of the questions raised by your illness. -Consider using the Medical Scientist staff at [facility] to help you with your spiritual questions. [...] fat tissue -Talking to a dietitian or fence builder who can help you plan a healthy [...] your doctor to help you quit. The [facility] can help. Stress management [...]
--- OUTSIDE RECORDS SUMMARY | 2023-11-26 13:43 | XMS_ITS | Clinical Summary ---
Author Name Unknown Organization [facility] Address [address] [place] [address] Care Team Providers Care Ruby On Rails Software Developer Name Role Phone Unavailable Primary Care Provider Unavailabl e Source Comments Patient records contain information from all sites at [facility]. For routine questions regarding patient records, call [phone] during business hours, M-F 8:00 AM - 5:00 PM Central Time. Record requests for emergency care only can be directed to [phone] at any time.[facility] Allergies Active Allergy Reactions Criticality Noted Date [...] 11/19/2018 RZV (SHINGRIX) 07/15/2019(Deferred: Not available from double end tenoner setter) Td Preservative Free (TENIVA C, DECAVAC) 07/30/2020 [...] often do you attend chur ch or protestant services? Never 09/05/2021 Do you belong to any clubs o r organizations such as caodaism groups, unions, fraternal or athletic groups, or [...] Answer Date Recorded PHQ-2 Score 4 09/12/2021 [facility] - Occupational Stress [...] place to sleep or slept in a prison (including now)? No 09/05/2021 Depression Answer Date [...] Master's degree (e.g., MA, MS, Greg, MEd, PREPARER MAKING DEPARTMENT, BERNARDO) 07/24/2019 Sex and Gender Information Value [...] T Respiratory Rate 16 12/26/2022 1:07 PM SEED BUYER Oxygen Saturation 99% 03/09/2023 1:38 PM CDT Inhaled Oxygen Concentration - - Weight 69.7 kg (153 lb 10.6 oz) 03/09/2023 1:38 PM CDT Height 165 cm (5' 4.96) 03/09/2023 1:38 PM CDT Body Mass Index 25.6 03/09/2023 1:38 PM CDT Plan of Treatment Upcoming Encounters Date Type Department Care Team (Latest Contact Info) Description 12/14/2023 10:30 AM SEED BUYER Clinical Communication Virtual Review in [place], [place] [address] [place] [address] 12/17/2023 5:15 PM SEED BUYER Appointment Department of Radiology, [facility], in [place], [place] [address] [place] [phone] Anuj Henao M.B.B.S., Gino [address] [place] [address] 12/18/2023 2:40 PM SEED BUYER Office Visit Department of Oncology in [place], [place] [address] [place] [address] Anuj Henao M.B.B.S., Gino [address] [place] [phone] Health Maintenance Due Date Last Done Comments Bone Density Scan (Osteoporosis Screen) 1952 CT Colonography 1952 Cologuard 1950 Colonoscopy 1952 Colorectal Cancer Surveillance 1950 Hepatitis C Screening 1950 Zoster Vaccines (1 of 2) 1971 Depression Screening (Annual PHQ-2) 10/29/2023 Fall Risk Screen (Annual) 10/29/2023 Fasting Glucose for Diabetes Screening 03/09/2026 03/09/2023, 09/16/2021 DTaP,Tdap,and Td Vaccines (5 - Td or Tdap) 07/30/2030 07/30/2020, 10/02/2011, 06/06/1999, Additional history exists Hepatitis A Vaccines Completed 05/23/2000, 06/13/19 99 Hepatitis B Vaccines Completed 06/06/2009, 06/06/2009, 06/06/1999, Additional history exists Pneumococcal vaccine (65+ years) Completed 11/19/2018, 10/24/2017 Influenza Vaccine Completed 08/13/2023, , 09/12/2021, Additional history exists COVID-19 Vaccine Completed 09/11/2023, , 02/28/2022, Additional history exists HPV Vaccines Aged Out No longer eligi ble based on patient's age to complete this topic Medical Devices Implanted Type Area School Guard Device Identifier Shelf Expiration Date Model / Serial / Lot Clp Hrzn Ti 6 Deven Clemons [employer] - [id number] Implanted:Qty: 2 on 07/29/2019 by Nella Gerber M.D. at [facility] Hardware e.g. pins/screws/r ods [employer] [id number] / / Explanted Type Area School Guard Device Identifier Shelf Expiration Date Model / Serial / Lot Imaging Marker Explanted:10/2018 (Quantity not on file) Imaging Marker Breast Procedures Procedure Name Priority Date/Time Associated Diagnosis Comments OUTSIDE MR NEURO Routine 11/21/2023 2:40 PM SEED BUYER from Last 3 Months Results * MR THORACIC SPINE WO/W CON-Outside MR Neuro (11/21/2023 2:40 PM SEED BUYER) 11/21/2023 2:39 PM SEED BUYER Narrative IIMS - 11/21/2023 4:04 PM SEED BUYER This order has been created and auto-finalized [...] Advance Directives For more information, please contact: [phone] Latest Code Status on File Code Status [...]
--- OUTSIDE RECORDS SUMMARY | 2023-11-26 13:43 | XMS_ITS ---
Author Name Unknown Organization [facility] Address [address] [place] [address] Care Team Providers Care Statement Clerks Manager Name Role Phone Unavailable Unavailable Unavailable Surgery Details Not on file Complications Check Surgery Details section. Procedure Estimated Blood Loss Check Surgery Details section. Procedure Findings Check Surgery Details section. Procedure Specimens Taken Check Surgery Details section.
--- OUTSIDE RECORDS SUMMARY | 2023-11-26 13:43 | XMS_ITS | Encounter Summary ---
Author Name Unknown Organization [facility] Address [address] [place] [address] Care Team Providers Care Remediation Consultant Name Role Phone Unavailable Primary Care Provider Unavailabl e Reason for Visit * Reason Onset Date Comments Appointment 04/27/2023 Encounter Details Date Type Department Care Team (Late st Contact Info) Description 04/27/2023 Clinical Communication Department of Oncology in [place], [place] [address] [place] [phone] Anuj Henao M.B.B.S., MJj. [address] [place] [phone] Appointment Social History Tobacco Use Types Packs/Day [...] often do you attend chur ch or hindu services? Never 09/05/2021 Do you belong to [...] Answer Date Recorded PHQ-2 Score 4 09/12/2021 [facility] - Occupational Stress Questionnaire Answer Date [...] Master's degree (e.g., MA, MS, Greg, MEd, WASH BARREL LEADER, BERNARDO) 07/24/2019 Sex and Gender Information Value Date Recorded Sex Assigned at Female 07/01/2019 12:33 PM CDT Gender Identity Female 07/01/2019 12:33 PM CDT Sexual Orientation Straight 07/01/2019 12 :33 PM CDT documented as of this encounter Plan of Treatment Upcoming Encounters Date Type Department Care Team (Latest Contact Info) Description 12/14/2023 10:30 AM BAND SAWING MACHINE OPERATOR Clinical Communication Virtual Review in [place], [place] [address] [place] [address] 12/17/2023 5:15 PM BAND SAWING MACHINE OPERATOR Appointment Department of Radiology, [facility], in [place], [place] [address] [place] [phone] Anuj Henao M.B.B.S., MPaco [address] [place] [phone] 12/18/2023 2:40 PM BAND SAWING MACHINE OPERATOR Office Visit Department of Oncology in [address] [phone] Anuj Henao M.B.B.S., M.D. [address] [place] [phone] documented as of this encounter Visit Diagnoses Not on filedocumented in this encounter Additional Health Concerns Assessment Noted Time PHQ-9 Depression Total Score: 14 021 7:02 AM BAND SAWING MACHINE OPERATOR documented as of this encounter
--- OUTSIDE RECORDS SUMMARY | 2023-11-26 13:44 | XMS_ITS | Encounter Summary ---
Author Name Unknown Organization [facility] Address [address] [place] [address] Care Team Providers Care Fire Hydrant Operator Name Role Phone Unavailable Primary Care Provider Unavailabl e Encounter Details Date Type Department Care Team (Latest Contact Info) Description 12/22/2022 9:15 AM HYDRO PLANT OPERATOR Clinical Communication Virtual Review in [place], [place] [address] [place], [place] [phone] Social History Tobacco Use Types Packs/Day Years [...] any clubs o r organizations such as methodist groups, unions, fraternal or athletic groups, or [...] Score 4 09/12/2021 [facility] of Occupat ional Health - Occupational Stress [...] Master's degree (e.g., MA, MS, Greg, MEd, WEATHERIZATION SPECIALIST, BERNARDO) 07/24/2019 Sex and Gender Information Value Date Recorded Sex Assigned at Female 07/01/2019 12:33 PM CDT Gender Identity Female 07/01/2019 12:33 PM CDT Sexual Orientation Straight 07/01/2019 12 :33 PM CDT documented as of this encounter Plan of Treatment Upcoming Encounters Date Type Department Care Team (Latest Contact Info) Description 12/14/2023 10:30 AM HYDRO PLANT OPERATOR Clinical Communication Virtual Review in [place], [place] 200 [place] [address] 12/17/2023 5:15 PM HYDRO PLANT OPERATOR Appointment Department of Radiology, [facility], in [address] [phone] Anuj Henao M.B.BIgnacioSIgnacio, MPaco [address] [place] [phone] 12/18/2023 2:40 PM HYDRO PLANT OPERATOR Office Visit Department of Oncology in [address] [phone] Anuj Henao M.B.B.S., MPaco [address] [place] [phone] documented as of this encounter Visit Diagnoses Not on filedocumented in this encounter Additional Health Concerns Assessment Noted Time PHQ-9 Depression Total Score: 14 09/12/ 021 7:02 AM HYDRO PLANT OPERATOR documented as of this encounter
--- OUTSIDE RECORDS SUMMARY | 2023-11-26 13:44 | XMS_ITS | Encounter Summary ---
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 [address] [place] [phone] [facility] Referral ID Status Reason Start Date Expiration Date Visits Re quested Visits Authorized [id number] Closed 02/28/2023 02/27/2026 1 1 Encounter Details Date Type Department Care Team (Late st Contact Info) Description 03/09/2023 2:00 PM CDT Office Visit Department of Oncology in [place], [place] [address] [place] [phone] Aida Wellington APRN, C.N.P., M.S.N. [address] [place] [phone] Malignant Neoplasm Of Breast Female Left (HCC) [...] often do you attend chur ch or yazdanism services? Never 09/05/2021 Do you belong to any clubs o r organizations such as mosque groups, unions, fraternal or athletic groups, or [...] Answer Date Recorded PHQ-2 Score 4 09/12/2021 [facility] - Occupational [...] place to sleep or slept in a snf (including now)? No 09/05/2021 Depression Answer Date [...] Master's degree (e.g., MA, MS, Greg, MEd, WEIGHT CALLER, BERNARDO) 07/24/2019 Sex and Gender Information Value [...] provider on file. LOCAL ONCOLOGIST No care nut steamer to display PRIMARY [place] ONCOLOGIST Stephenie Gilman M.D. Yadav, Siddhartha, M.B.B.S., [...] 4 mm. Repeat ultrasound the left breast [facility] on 07/16/2019 showed the left breast [...] free margin of 14 mm for both. [place] lymph node labeled 1. Had 1 lymphnode that was negative for metastatic carcinoma. [place] lymph node labeled as 2. Had 2 [...] CLAROS PROCEDURE rectocele MEDICATIONS Current Outpatient Medications: blzswfm-cfturiytdmuow-eabtdogd (EXCEDRIN MIGRAINE) 250-250-65 mg per tablet, Take [...] Dr. Henao this fall. Aida Wellington APRN, ACTIVITIES LEADER PATIENT EDUCATION Ready to learn, no apparent [...] (Latest Contact Info) Description 12/14/2023 10:30 AM LOOM CHANGER Clinical Communication Virtual Review in [place], [place] [address] [place] [address] 12/17/2023 5:15 PM LOOM CHANGER Appointment Department of Radiology, [facility], in [place], [place] [address] [place] [phone] Anuj Henao M.B.B.S., Gino [address] [place] [phone] 12/18/2023 2:40 PM LOOM CHANGER Office Visit Department of Oncology in [place], [place] [address] [place] [phone] Anuj Henao M.B.B.S., Gino [address] [place] [phone] documented as of this encounter Results * Comprehensive Metabolic Panel (03/09/2023 2:35 PM CDT) [facility] Potassium, S 4.5 3.6 - 5.2 mmol/L [...] Nima Price APRNN.P., M.S.N. LAB BLOOD ADD-ON [address] [address], [facility] [address] [address] * CBC with Differential, Blood (03/09/2023 2:35 [...] M.S.N. LAB BLOOD ADD-ON Performing Organization Address City/[facility]/ZIP Co de Phone Number [address] [address], [facility] 200 [place] [address] * Magnesium (03/09/2023 2:31 PM CDT) Magnesium, S 2.2 1.7 - 2.3 mg/dL 03/09/2023 5:10 PM CDT DTL Blood (Blood, Venous) 03/09/2023 2:31 PM CDT 03/09/2023 4:54 PM CDT Alexander Price APRN.N.Kelsie., M.S.N. LAB BLOOD ADD-ON [facility] [address] [place] [address], [place] DTL [facility] [address] [place] [address] documented in this encounter Visit Diagnoses Diagnosis Malignant Neoplasm Of Breast Female Left (HCC)- Primary Anxiety Cramp And Spasm documented in this encounter Additional Health Concerns Assessment Noted Time PHQ-9 Depression Total Score: 14 09/12/ 021 7:02 AM LOOM CHANGER documented as of this encounter
--- OUTSIDE RECORDS SUMMARY | 2023-11-26 13:44 | XMS_ITS | Encounter Summary ---
Author Name Unknown Organization [facility] Address [address] [place] [address] Care Team Providers Care Tank Worker Name Role Phone Unavailable Primary Care Provider Unavailabl e Reason for Referral * Outpatient (Routine) - Closed Specialty Diagnoses / Procedures Referred By Contac t Referred To Contact Diagnoses Breast Examination Abnormal Procedures BI Breast Cyst Aspiration Right with Ultrasound Guidance Yeni May APRN, C.NRyanne., M.S.N. [address] [place] [phone] [facility] Referral ID Status Reason Start Date Expiration Date Visits Re quested Visits Authorized [id number] Closed 03/09/2023 03/08/2024 1 1 Reason for Visit * Outpatient (Routine) - Closed Specialty Diagnoses / Procedures Referred By Contac t Referred To Contact Diagnoses Breast Examination Abnormal Procedures BI Breast Cyst Aspiration Right with Ultrasound Guidance Yeni May APRN, C.NRyanne., M.S.N. [address] [place] [phone] [facility] Referral ID Status Reason Start Date Expiration Date Visits Re quested Visits Authorized [id number] Closed 03/09/2023 03/08/2024 1 1 Encounter Details Date Type Department Care Team (Latest Contact Info) Description 03/15/2023 8:14 AM CDT - 03/15/2023 11:59 PM CDT Hospital Encounter Department of Radiology in [place], [place] [address] [place] [address] Yeni May, JOSH, C.N.P., M.S.N. [address] [place] [phone] Breast Examination Abnormal Discharge Disposition: Home or [...] 09/05/2021 How often do you attend chur Global Locate or restorationism services? Never 09/05/2021 Do you belong to any clubs o r organizations such as sikh groups, unions, fraternal or athletic groups, or [...] Answer Date Recorded PHQ-2 Score 4 09/12/2021 [facility] [place] [facility] Occupat ional Health - Occupational Stress [...] Master's degree (e.g., MA, MS, Greg, MEd, IMMIGRATION SPECIALIST, BERNARDO) 07/24/2019 Sex and Gender Information Value Date Recorded Sex Assigned at Female 07/01/2019 12:33 PM CDT Gender Identity Female 07/01/2019 12:33 PM CDT Sexual Orientation Straight 07/01/2019 12 :33 PM CDT documented as of this encounter Medications at Time of Discharge Medication Sig Dispensed Refills Start Date End Date nswstih-daqsuoqnjzals-f affeine (EXCEDRIN MIGRAINE) 250-250-65 mg per tablet [...] (Latest Contact Info) Description 12/14/2023 10:30 AM VOCATIONAL SERVICES SPECIALIST Clinical Communication Virtual Review in [address] [address] 12/17/2023 5:15 PM VOCATIONAL SERVICES SPECIALIST Appointment Department of Radiology, [facility], in [address] [phone] Anuj Henao M.B.B.SIgnacio, M.D. [address] [place] [phone] 12/18/2023 2:40 PM VOCATIONAL SERVICES SPECIALIST Office Visit Department of Oncology in [address] [phone] Juliano, Love Leslie M.D. [address] [place] [address] documented as of this encounter Procedures Procedure [...] medications. PATIENT EDUCATION: ??Provided by a care hospice team lead. Ready to learn, no apparent [...] currentmedications. PATIENT EDUCATION: Provided by a care hospice team lead. Ready to learn, noapparent learning [...] Total Score: 14 09/12/ 021 7:02 AM VOCATIONAL SERVICES SPECIALIST documented as of this encounter
--- OUTSIDE RECORDS SUMMARY | 2023-11-26 13:44 | XMS_ITS | Encounter Summary ---
Author Name Unknown Organization [facility] Address [address] [place] [address] Care Team Providers Care Mutuel Cashier Name Role Phone Unavailable Primary Care Provider Unavailabl e Encounter Details Date Type Department Care Team (Late st Contact Info) Description 03/01/2023 Clinical Communication Department of Oncology in [place], [place] [address] [place] [phone] Yeni May, JOSH, C.N.P., M.S.N. [address] [place] [phone] Social History Tobacco Use Types Packs/Day Years [...] often do you attend chur ch or scientologist services? Never 09/05/2021 Do you belong to any clubs o r organizations such as mandaen groups, unions, fraternal or athletic groups, or [...] Answer Date Recorded PHQ-2 Score 4 09/12/2021 [facility] of Occupat ional [facility] - Occupational Stress Questionnaire Answer Date [...] Master's degree (e.g., MA, MS, Greg, MEd, PROSTHETIC AIDE, BERNARDO) 07/24/2019 Sex and Gender Information Value Date Recorded Sex Assigned at Female 07/01/2019 12:33 PM CDT Gender Identity Female 07/01/2019 12:33 PM CDT Sexual Orientation Straight 07/01/2019 12 :33 PM CDT documented as of this encounter Plan of Treatment Upcoming Encounters Date Type Department Care Team (Latest Contact Info) Description 12/14/2023 10:30 AM EXTRUDER TENDER Clinical Communication Virtual Review in [place], [place] 200 [place] [address] 12/17/2023 5:15 PM EXTRUDER TENDER Appointment Department of Radiology, [facility], in [place], [place] [address] [place] [phone] Anuj Henao M.B.B.S., MPaco [address] [place] [phone] 12/18/2023 2:40 PM EXTRUDER TENDER Office Visit Department of Oncology in [place], [place] [address] [place] [phone] Anuj Henao M.B.B.S., MPaco [address] [place] [phone] documented as of this encounter Visit Diagnoses Not on filedocumented in this encounter Additional Health Concerns Assessment Noted Time PHQ-9 Depression Total Score: 14 09/12/ 021 7:02 AM EXTRUDER TENDER documented as of this encounter
--- OUTSIDE RECORDS SUMMARY | 2023-11-26 13:44 | XMS_ITS | Encounter Summary ---
Author Name Unknown Organization [facility] Address [address] [place] [address] Care Team Providers Care Psychiatric Nursing Aide Name Role Phone Unavailable Primary Care Provider Unavailabl e Encounter Details Date Type Department Care Team (Late st Contact Info) Description 12/26/2022 Clinical Communication Department of Oncology in [place], [place] [address] [place] [phone] Kelsie Becerra, R.N. [address] [place] [address] Social History Tobacco Use Types Packs/Day Years [...] often do you attend chur ch or baptism services? Never 09/05/2021 Do you belong to any clubs o r organizations such as oriental orthodox groups, unions, fraternal or athletic groups, or [...] Answer Date Recorded PHQ-2 Score 4 09/12/2021 [facility] of Occupat ional Health - Occupational Stress [...] Master's degree (e.g., MA, MS, Greg, MEd, PARISH VISITOR, BERNARDO) 07/24/2019 Sex and Gender Information Value Date Recorded Sex Assigned at Female 07/01/2019 12:33 PM CDT Gender Identity Female 07/01/2019 12:33 PM CDT Sexual Orientation Straight 07/01/2019 12 :33 PM CDT documented as of this encounter Miscellaneous Notes * Addendum Note - Kelsie Becerra, R.N. - 12/26/2022 2:45 PM CSTAddended by: KELSIE BECERRA on: 12/26/2022 02:45 PM Modules accepted: Orders NGTH AND CONDITIONING COACH documented in this encounter Plan of Treatment Upcoming Encounters Date Type Department Care Team (Latest Contact Info) Description 12/14/2023 10:30 AM STRENGTH AND CONDITIONING COACH Clinical Communication Virtual Review in [place], [place] 200 [place] [address] 12/17/2023 5:15 PM STRENGTH AND CONDITIONING COACH Appointment Department of Radiology, [facility], in [place], [place] [address] [place] [phone] Anuj Henao M.B.B.S., MJj. [address] [place] [phone] 12/18/2023 2:40 PM STRENGTH AND CONDITIONING COACH Office Visit Department of Oncology in [place], [place] [address] [place] [phone] Anuj Henao M.B.B.S., Gino [address] [place] [phone] documented as of this encounter Visit Diagnoses Diagnosis Malignant Neoplasm Of Breast Upper Outer Quadrant Female Left (HCC)- Primary documented in this encounter Additional Health Concerns Assessment Noted Time PHQ-9 Depression Total Score: 14 09/12/ 021 7:02 AM STRENGTH AND CONDITIONING COACH documented as of this encounter
--- OUTSIDE RECORDS SUMMARY | 2023-11-26 13:44 | XMS_ITS | Encounter Summary ---
Author Name Unknown Organization [facility] Address [address] [place] [address] Care Team Providers Care Utilization Management Nurse Name Role Phone Unavailable Primary Care Provider Unavailabl e Reason for Referral * Outpatient (Routine) - Authorized Specialty Diagnoses / Procedures Referred By Connie orlando Referred To Contact Oncology nAuj Henao M.B.B.S., M.D. [address] [place] [phone] Health System Referral ID Status Reason Start Date Expiration Date V isits Requested Visits Authorized [id number] Authorized 12/26/2022 12/25/2025 1 1 TRUCK DRIVER * MRI/CAT/PET Scan (Routine) - Authorized Specialty Diagnoses / Procedures Referred By Connie orlando Referred To Contact Radiology Diagnoses Cancer Breast Personal History Procedures MR Breast Bilateral without and with IV Contrast Anuj Henao M.B.B.S., M.D. [address] [place] [phone] Health System Referral ID Status Reason Start Date Expiration Date V isits Requested Visits Authorized [id number] Authorized 12/26/2022 12/26/2023 1 1 TRUCK DRIVER Reason for Visit * Outpatient (Routine) - Closed Specialty Diagnoses / Procedures Referred By Connie orlando Referred To Contact Oncology Anuj Henao M.B.B.S., M.D. [address] [place] [address] Health System Referral ID Status Reason Start Date Expiration Date Visits Re quested Visits Authorized [id number] Closed 06/06/2022 06/06/2023 1 1 Encounter Details Date Type Department Care Team (Late st Contact Info) Description 12/26/2022 1:20 PM HAUL TRUCK DRIVER Office Visit Department of Oncology in [place], [place] [address] [place] [phone] Anuj Henao M.B.B.S., M.D. [address] [place] [phone] Cancer Breast Personal History (Primary Dx); Screening [...] often do you attend chur ch or sikh services? Never 09/05/2021 Do you belong to any clubs o r organizations such as congregational groups, unions, fraternal or athletic groups, or [...] Answer Date Recorded PHQ-2 Score 4 09/12/2021 [facility] of Occupat ional Health - Occupational Stress [...] place to sleep or slept in a [place] health care facility (including now)? No 09/05/2021 Depression Answer Date [...] Master's degree (e.g., MA, MS, Greg, MEd, REQUISITION APPROVER, BERNARDO) 07/24/2019 Sex and Gender Information Value Date Recorded Sex Assigned at Female 07/01/2019 12:33 PM CDT Gender Identity Female 07/01/2019 12:33 PM CDT Sexual Orientation Straight 07/01/2019 12 :33 PM CDT documented as of this encounter Last Filed Vital Signs Vital Sign Reading Time Taken Comments Blood Pressure 164/81 12/26/2022 1:07 PM HAUL TRUCK DRIVER Pulse 73 12/26/2022 1:07 PM HAUL TRUCK DRIVER Temperature 36.5 ??C (97.7 ??F) 12/26/2022 1:07 PM CS T Respiratory Rate 16 12/26/2022 1:07 PM HAUL TRUCK DRIVER Oxygen Saturation 98% 12/26/2022 1:07 PM HAUL TRUCK DRIVER Inhaled Oxygen Concentration - - Weight 68.5 kg (151 lb 0.2 oz) 12/26/2022 1:07 P M HAUL TRUCK DRIVER Height 162.8 cm (5' 4.09) 12/26/2022 1:07 PM CS T Body Mass Index 25.85 12/26/2022 1:07 PM HAUL TRUCK DRIVER documented in this encounter Progress Notes * Anuj Henao M.B.B.S., MJj. - 12/26/2022 1:20 PM CST SUBJECTIVE PRIMARY [place] ONCOLOGIST Stephenie Gilman M.D. Yadav, Siddhartha, M.B.B.S., [...] 4 mm. Repeat ultrasound the left breast [facility] on 07/16/2019 showed the left breast lesion [...] free margin of 14 mm for both. [place] lymph node labeled 1. Had 1 lymphnode that was negative for metastatic carcinoma. [place] lymph node labeled as 2. Had 2 [...] and/or coordination of care as described above. TRUCK DRIVER documented in this encounter Plan of Treatment Upcoming Encounters Date Type Department Care Team (Latest Contact Info) Description 12/14/2023 10:30 AM HAUL TRUCK DRIVER Clinical Communication Virtual Review in [place], [place] 200 [place] [address] 12/17/2023 5:15 PM HAUL TRUCK DRIVER Appointment Department of Radiology, [facility], in [place], [place] [address] [place] [phone] Anuj Henao M.B.B.S., Gino [address] [place] [phone] 12/18/2023 2:40 PM HAUL TRUCK DRIVER Office Visit Department of Oncology in [address] [phone] Anuj Henao M.B.B.S., Gino [address] [place] [phone] Scheduled Orders Name Type Priority Associated Diagnoses [...] Depression Total Score: 14 021 7:02 AM HAUL TRUCK DRIVER documented as of this encounter
--- OUTSIDE RECORDS SUMMARY | 2023-11-26 13:44 | XMS_ITS | Encounter Summary ---
Author Name Unknown Organization [facility] Address [address] [place] [address] Care Team Providers Care Pharmacy Associate Name Role Phone Unavailable Primary Care Provider Unavailabl e Reason for Referral * Outpatient (Routine) - Closed Specialty Diagnoses / Procedures Referred By Contac t Referred To Contact Diagnoses Malignant Neoplasm Of Breast Upper Outer Quadrant Female Left (HCC) Procedures BI Ultrasound Breast Focused Right Yeni May APRN, C.NDamon, M.S.N. 200 [place] [phone] [facility] Referral ID Status Reason Start Date Expiration Date Visits Re quested Visits Authorized [id number] Closed 02/28/2023 02/28/2024 1 1 Reason for Visit * Outpatient (Routine) - Closed Specialty Diagnoses / Procedures Referred By Contac t Referred To Contact Diagnoses Malignant Neoplasm Of Breast Upper Outer Quadrant Female Left (HCC) Procedures BI Ultrasound Breast Focused Right Yeni May APRN, C.N.Kelsie., M.S.N. [address] [place] [phone] [facility] Referral ID Status Reason Start Date Expiration Date Visits Re quested Visits Authorized [id number] Closed 02/28/2023 02/28/2024 1 1 Encounter Details Date Type Department Care Team (Latest Contact Info) Description 03/09/2023 8:07 AM CDT - 03/09/2023 11:59 PM CDT Hospital Encounter Department of Radiology in [place], [place] 200 [place] [phone] Yeni May APRN, C.N.P., M.S.N. 200 [place] [phone] Malignant Neoplasm Of Breast Upper Outer Quadrant [...] How often do you attend chur or samaritan services? Never 09/05/2021 Do you belong to any clubs o r organizations such as buddhist groups, unions, fraternal or athletic groups, or [...] 09/12/2021 [facility] - Occupational Stress Questionnaire Answer Date Recorded [...] Master's degree (e.g., MA, MS, Greg, MEd, PCU RN, BERNARDO) 07/24/2019 Sex and Gender Information Value Date Recorded Sex Assigned at Female 07/01/2019 12:33 PM CDT Gender Identity Female 07/01/2019 12:33 PM CDT Sexual Orientation Straight 07/01/2019 12 :33 PM CDT documented as of this encounter Medications at Time of Discharge Medication Sig Dispensed Refills Start Date End Date tyjiuhk-jsmcxzickvpja-z affeine (EXCEDRIN MIGRAINE) 250-250-65 mg per tablet [...] (Latest Contact Info) Description 12/14/2023 10:30 AM CONCIERGE Clinical Communication Virtual Review in [address] [address] 12/17/2023 5:15 PM CONCIERGE Appointment Department of Radiology, [facility], in [address] [phone] Anuj Henao M.B.B.S., M.Celeste. [address] [place] [phone] 12/18/2023 2:40 PM CONCIERGE Office Visit Department of Oncology in [address] [phone] Anuj Henao M.B.B.S., M.D. [address] [place] [address] documented as of this encounter Procedures Procedure [...] Total Score: 14 09/12/ 021 7:02 AM CONCIERGE documented as of this encounter
--- OUTSIDE RECORDS SUMMARY | 2023-11-26 13:44 | XMS_ITS | Encounter Summary ---
Author Name Unknown Organization [facility] Address [address] [place] [address] Care Team Providers Care Field Administrator Name Role Phone Unavailable Primary Care Provider Unavailabl e Encounter Details Date Type Department Care Team (Latest Contact Info) Description 03/08/2023 3:30 PM CDT Clinical Communication Virtual Review in [place], [place] 200 [place], [place] [phone] Social History Tobacco Use Types Packs/Day Years [...] often do you attend chur ch or episcopal services? Never 09/05/2021 Do you belong to any clubs o r organizations such as alevism groups, unions, fraternal or athletic groups, or [...] Answer Date Recorded PHQ-2 Score 4 09/12/2021 [facility] of Occupat ional Health - Occupational Stress [...] place to sleep or slept in a intermediate (including now)? No 09/05/2021 Depression Answer Date [...] Master's degree (e.g., MA, MS, Greg, MEd, 411 DIRECTORY ASSISTANCE OPERATOR, BERNARDO) 07/24/2019 Sex and Gender Information Value Date Recorded Sex Assigned at Female 07/01/2019 12:33 PM CDT Gender Identity Female 07/01/2019 12:33 PM CDT Sexual Orientation Straight 07/01/2019 12 :33 PM CDT documented as of this encounter Plan of Treatment Upcoming Encounters Date Type Department Care Team (Latest Contact Info) Description 12/14/2023 10:30 AM CORE BAKER Clinical Communication Virtual Review in [place], [place] 200 [place] [address] 12/17/2023 5:15 PM CORE BAKER Appointment Department of Radiology, [facility], in [place], [place] [address] [place] [phone] Anuj Henao M.B.BIgnacioSIgnacio, MPaco [address] [place] [phone] 12/18/2023 2:40 PM CORE BAKER Office Visit Department of Oncology in [address] [phone] Anuj Henao M.B.B.SIgnacio, MPaco [address] [place] [phone] documented as of this encounter Visit Diagnoses Not on filedocumented in this encounter Additional Health Concerns Assessment Noted Time PHQ-9 Depression Total Score: 14 09/12/ 021 7:02 AM CORE BAKER documented as of this encounter
--- OUTSIDE RECORDS SUMMARY | 2023-11-26 13:44 | XMS_ITS | Encounter Summary ---
Author Name Unknown Organization [facility] Address [address] [place] [address] Care Team Providers Care Electric Meter Tester Name Role Phone Unavailable Primary Care Provider Unavailabl e Reason for Referral * MRI/CAT/PET Scan (Routine) - Closed Specialty Diagnoses / Procedures Referred By Connie orlando Referred To Contact Radiology Diagnoses Cancer Breast Personal History Procedures MR Breast Bilateral without and with IV Contrast Anuj Henao M.B.B.S., M.D. 200 [place] [address] [facility] Referral ID Status Reason Start Date Expiration Date Visits Re quested Visits Authorized [id number] Closed 06/06/2022 06/06/2023 1 1 RDS CONSULTANT Reason for Visit * MRI/CAT/PET Scan (Routine) - Closed Specialty Diagnoses / Procedures Referred By Connie orlando Referred To Contact Radiology Diagnoses Cancer Breast Personal History Procedures MR Breast Bilateral without and with IV Contrast Anuj Henao M.B.B.S., M.D. [address] [place] [phone] [facility] Referral ID Status Reason Start Date Expiration Date Visits Re quested Visits Authorized [id number] Closed 06/06/2022 06/06/2023 1 1 Encounter Details Date Type Department Care Team (Latest Contact Info) Description 12/26/2022 6:14 AM REWARDS CONSULTANT - 12/26/2022 11:59 PM REWARDS CONSULTANT Hospital Encounter Department of Radiology, [facility], in [place], [place] [address] [place] [address] Anuj Henao M.B.B.S., M.D. 200 [place] [address] Cancer Breast Personal History Discharge Disposition: Home [...] often do you attend chur ch or worship services? Never 09/05/2021 Do you belong to any clubs o r organizations such as quaker groups, unions, fraternal or athletic groups, or [...] Answer Date Recorded PHQ-2 Score 4 09/12/2021 [facility] of Occupat ional [facility] - Occupational Stress Questionnaire Answer Date Recorded [...] Master's degree (e.g., MA, MS, Greg, [place], BLAST FURNACE OPERATOR, BERNARDO) 07/24/2019 Sex and Gender Information [...] (Latest Contact Info) Description 12/14/2023 10:30 AM REWARDS CONSULTANT Clinical Communication Virtual Review in [address] [address] 12/17/2023 5:15 PM REWARDS CONSULTANT Appointment Department of Radiology, [facility], in [address] [phone] Anuj Henao M.B.B.S., MJj. [address] [place] [phone] 12/18/2023 2:40 PM REWARDS CONSULTANT Office Visit Department of Oncology in [address] [phone] Anuj Henao M.B.B.S., M.D. [address] [place] [address] documented as of this encounter Procedures Procedure Name Priority Date/Time Associated Diagnosis Comments MR BREAST BILATERAL WITHOUT AND WITH IV CONTRAST RAD - Routine (most inpatients and all outpatients) 12/26/2022 7:31 AM REWARDS CONSULTANT Cancer Breast Personal History documented in this encounter Results * MR Breast Bilateral without and with IV Contrast (12/26/2022 7:31 AM REWARDS CONSULTANT) Anatomical Region Laterality Modality Breast, Breast Imaging RST L OS, Breast Imaging ARZ LOS, Breast Imaging FLA LOS Bilateral Magnetic Resonance 12/26/2022 8:41 AM REWARDS CONSULTANT Impressions 12/26/2022 8:55 AM REWARDS CONSULTANT 1. Prior left breast mastectomy without findings to suggest recurrence. 2. No MR findings of malignancy within the right breast within the confines of moderate background parenchymal enhancement. RECOMMENDATION: ??Annual Screening Mammogram Screening as appropriate given personal risk of breast cancer. ASSESSMENT: ??BI-RADS: 2: Benign. Narrative 12/26/2022 8:55 AM REWARDS CONSULTANT EXAM: ??MR BREAST BILATERAL WITHOUT AND WITH [...] ASSESSMENT: BI-RADS: 2: Benign. Anuj Aleman M.D. [facility] MRI PROCEDURES documented in this encounter Visit [...] mL not recommended. Given 12/26/2022 7:13 AM REWARDS CONSULTANT 7 mL sodium chloride (PF) 0.9 % injection 1-100 mL 1-100 mL, intravenous, Once, On 2/28/23 at 0630, For 1 dose, Imaging Protocol Orders Given 12/26/2022 7:14 AM REWARDS CONSULTANT 20 mL documented in this encounter Additional Health Concerns Assessment Noted Time PHQ-9 Depression Total Score: 14 021 7:02 AM REWARDS CONSULTANT documented as of this encounter
--- OUTSIDE RECORDS SUMMARY | 2023-11-26 13:44 | XMS_ITS | Encounter Summary ---
Author Name Unknown Organization [facility] Address [address] [place] [address] Care Team Providers Care Customer Care Team Coach Name Role Phone Unavailable Primary Care Provider Unavailabl e Reason for Referral * Outpatient (Routine) - Closed Specialty Diagnoses / Procedures Referred By Connie t Referred To Contact Diagnoses Malignant Neoplasm Of Breast Upper Outer Quadrant Female Left (HCC) Procedures BI Breast Diagnostic Right with Tomosynthesis Yeni May APRN, C.NDamon, M.S.N. 200 [place] [address] [facility] Referral ID Status Reason Start Date Expiration Date Visits Re quested Visits Authorized [id number] Closed 02/28/2023 02/28/2024 1 1 Reason for Visit * Outpatient (Routine) - Closed Specialty Diagnoses / Procedures Referred By Contac t Referred To Contact Diagnoses Malignant Neoplasm Of Breast Upper Outer Quadrant Female Left (HCC) Procedures BI Breast Diagnostic Right with Tomosynthesis Yeni May APRN, C.N.Kelsie., M.S.N. [address] [place] [phone] [facility] Referral ID Status Reason Start Date Expiration Date Visits Re quested Visits Authorized [id number] Closed 02/28/2023 02/28/2024 1 1 Encounter Details Date Type Department Care Team (Latest Contact Info) Description 03/09/2023 8:07 AM CDT - 03/09/2023 11:59 PM CDT Hospital Encounter Department of Radiology in [place], [place] [address] [place] [address] Yeni May APRN, C.N.P., M.S.N. [address] [place] [address] Malignant Neoplasm Of Breast Upper Outer Quadrant [...] How often do you attend chur or jehovah's witness services? Never 09/05/2021 Do you belong to any clubs o r organizations such as mu-ism groups, unions, fraternal or athletic groups, or [...] Answer Date Recorded PHQ-2 Score 4 09/12/2021 [facility] of Occupat ional Health - Occupational Stress [...] place to sleep or slept in a senior care (including now)? No 09/05/2021 Depression Answer Date [...] Master's degree (e.g., MA, MS, Greg, MEd, ENGINEER, BERNARDO) 07/24/2019 Sex and Gender Information Value Date Recorded Sex Assigned at Female 07/01/2019 12:33 PM CDT Gender Identity Female 07/01/2019 12:33 PM CDT Sexual Orientation Straight 07/01/2019 12 :33 PM CDT documented as of this encounter Medications at Time of Discharge Medication Sig Dispensed Refills Start Date End Date njfsgha-vulteiguvpfyo-e affeine (EXCEDRIN MIGRAINE) 250-250-65 mg per tablet [...] Miscellaneous Notes * Result Encounter Note - Yeni May APRN C.N.P., M.S.N. - 03/14/2023 1:02 PM CDT Hi-please see breast imaging results. She is scheduled for cyst aspiration on 03/15/23. Zina documented in this encounter Plan of Treatment Upcoming Encounters Date Type Department Care Team (Latest Contact Info) Description 12/14/2023 10:30 AM [facility] Clinical Communication Virtual Review in [address] [address] [phone] 12/17/2023 5:15 PM AUTO RESEARCH ENGINEER Appointment Department of Radiology, [facility], in [place], [place] [address] [place] [address] Anuj Henao M.B.B.S., M.D. [address] [place] [phone] 12/18/2023 2:40 PM AUTO RESEARCH ENGINEER Office Visit Department of Oncology in [place], [place] [address] [place] [address] Anuj Henao M.B.B.S., M.D. [address] [place] [phone] documented as of this encounter Procedures Procedure [...] Total Score: 14 09/12/ 021 7:02 AM AUTO RESEARCH ENGINEER documented as of this encounter
--- NOTE | 2023-11-26 14:00 | CRLHL7_ITS ---
For Patients: As a result of the Century Cures Act, medical imaging exams and procedure reports are released immediately into your electronic medical record. You may view this report before your referring provider. If you have questions, please contact your health care provider. INDICATION: Thyroid nodule COMPARISON: Thoracic spine MRI 11/21/2023 TECHNIQUE: Nascimento scale and color Doppler images were acquired of the thyroid gland. FINDINGS: Macro lobular hypoechoic solid nodule left thyroid lobe with microcalcifications measuring 1.8 x 1.2 x 1.0 cm. The right lobe measures 4.0 x 1.4 x 1.2 cm and the left lobe measures 3.5 x 1.5 x 1.5 cm in size. The isthmus measures 2 millimeters. The color Doppler images demonstrate normal vascularity. There is no evidence of cervical lymphadenopathy or parathyroid mass. IMPRESSION: 1.8 cm TR 5 nodule left thyroid lobe. FNA recommended. Dictated by Luis Fernando Eason MD @ 11/27/2023 8:34:58 AM (Electronically Signed)
== END 2023-11-26 13:41 | disposition home or self-care (01) ==
PROVIDERS: PCP Internal Medicine; Visit Provider Internal Medicine
DX: E04.1 Nontoxic single thyroid nodule (principal)
CPT/HCPCS: 76536

== ENCOUNTER 2024-11-03 16:29 | Emergency (ER) | payer MEDICARE, BC, SELFPAY ==
--- OUTSIDE RECORDS SUMMARY | 2024-11-03 16:31 | XMS_ITS ---
Author Organization [facility] Address [address] [place] [address] Care Team Providers Care Global Marketing Operations Manager Name Role Phone Unavailable Primary Care Provider Unavailabl e Active Problems * This document contains information received from the source organization and may not represent a complete record from that organization. 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 Past Plans No past plan information found. Radiation Treatments * No radiation treatments are documented for this patient in [facility]. Treatments may have been administered in [...] was developed by a multidisciplinary team of [place] cancer providers to help you understand, discuss, [...] (Breast) Stephenie Gilman M.D. - Medical Oncology HydeWill M.D. - Radiation Oncology Yuridia Lainez [facility] Counselor - Clinical Genomics Michaela Sharpe APRN, INSTALLER METAL FLOORING - Breast Clinic Cancer Diagnosis and Staging [...] 4 mm. Repeat ultrasound the left breast [facility] on 07/16/2019 showed the left [...] free margin of 14 mm for both. [place] lymph node labeled 1. Had 1 lymphnode that was negative for metastatic carcinoma. [place] lymph node labeled as 2. Had 2 [...] are largely based on guidelines from the [place] [employer] of Clinical Oncology (ASCO), the biggest cancer society regarding clinical practice. -Physical examinations should be performed every 3 to 6 months for the first 3 years, every 6 to 12months for years 4 and 5, and annually thereafter. Surveillance visits How often: Every three months With Who: Medical Oncology Additional information: Imaging (mammograms) How often: yearly Where: [place] Additional information: Follow-up care with your Primary [...] your life, including relationships, school, work, and longterm plans. Anger is a normal response to [...] you, such as physical therapists, occupational therapists, electronics technology department chair, or mental health care providers Coping With [...] spiritual framework. -Talk with your spiritual or fabric worker leader to help guide you through some of the questions raised by your illness. -Consider using the Human Resources Records Clerk staff at [facility] to help you with your [...] fat tissue -Talking to a dietitian or mill operator head who can help you plan a healthy [...] your doctor to help you quit. The [facility] can help. [...]
--- OUTSIDE RECORDS SUMMARY | 2024-11-03 16:31 | XMS_ITS | Clinical Summary ---
Author Organization [facility] Address [place], [place] [address] Care Team Providers Care Child Custody Evaluator Name Role Phone Liat Lee MD Primary Care Provider [phone] Allergies Active Allergy Reactions Criticality Noted Date Comments Sulfa (Sulfonamide Antibiotics) Rash,Itching Sulfa (Sulfonamide Antibiotics) Rash 06/30 Medications clobetasol 0.05% (TEMOVATE 0.05% OINTMENT) 0.05 % ointment Apply topically to affected area(s) 2 times daily. 1 Tube 0 0 Active Magnesium Glycinate 100 mg Tab Take by mouth. 0 1 Active L Glutamine-N xvqc-Gfv-Chz-Mi n 10-600-140 g-mg-mg Pack Take by mouth. 0 1 Active traZODone (DESYREL) 50 mg tablet Take 1 tablet by mouth at bedtime. 0 2 Active CPAP New nasal pillows, tubing. 1 unit 0 5 Active buPROPion (WELLBUTRIN XL) 300 mg Extended-Releas e tablet Take 300 mg by mouth. 0 Active traZODone (DESYREL) 50 mg tablet Take 100 mg by mouth. Active Active Problems Problem Noted Date Diagnosed Date Postconcussive syndrome 01/29/2012 Overview (01/29/2012): Injuries May and Jun 2011 at work Abnormal brain MRI 01/29/2012 Overview (01/29/2012): Done at [facility] in 2011, 3 cm white matter lesion, a few other small lesions, nonspecific findings. Lichen sclerosus 01/25/2012 Overview (01/25/2012): Followed at [place] as of 01/25/2012 Memory loss 10/02/2011 Immunizations [...] drink = 0.6 oz p ure alcohol) Comments No Sex and Gender Information Value Date Recorded Sex Assigned at Not on file Legal Sex Female 7:23 AM [employer] Gender Identity Not on file Sexual Orientation Not on file Obstetrics History Last Filed Vital Signs Vital Sign Reading Time Taken Comments Blood Pressure 118/77 08/03/2021 10:18 AM CDT Pulse 68 08/03/2021 10:18 AM CDT Temperature 38.1 C (100.6 F) 09/08/2017 8:18 PM [employer] Respiratory Rate 20 09/08/2017 8:18 PM [employer] Oxygen Saturation 98% 08/03/2021 10: 18 AM CDT Inhaled Oxygen Concentration - - Weight 66.6 kg (146 lb 12.8 oz) 021 10:18 AM CDT Height 165.1 cm (5' 5) 09/10/2019 8:00 AM [employer] Body Mass Index 24.43 09/10/2019 8:00 AM [employer] Plan of Treatment Health Maintenance Due Date Last Done Comments Depression screening for age 12+ 1964 BMI (ht and wt on same day) for age 18+ 1970 Hepatitis C screening for ag e 18-79 1970 Lipids for age 45-75 1997 Pneumococcal series for age 50+ (1 of 1 - PCV) 2002 Zoster (shingles) series for age 50+ (1 of 2) 2002 Mammogram for age 45-75 11/04/2012 11/04/19 12, 03/03/2010, 03/15/2009, Additional history exists Colonoscopy through age 75 06/23/201606/23, 06/23/2011, 11/13/2006 DEXA/DXA scan for age 65+ 2017 Medicare Wellness for age 65+ 2017 Tetanus booster 10/02/2021 10/02/2011, 06/06/1999 COVID-19 vaccine series ( season) 2024 01/28/2021, 12/31/2020 Influenza for age 65+ 06/29/2024 RSV vaccine for adults or (1 - 1-dose 75+ series) 2027 Tdap Completed 10/02/2011 Procedures Procedure Name Priority Date/Time Associated Diagnosis Comments SCAN-MAMMOGRAPHY REPORT 11/04/2011 12:00 AM [employer] COLONOSCOPY SCREENING Routine 06/23/2011 Colon polyp from Last 3 Months or Most Recently Relevant to Health Maintenance Results * SCAN-MAMMOGRAPHY REPORT (11/04/2011 12:00 AM [employer]) Anatomical Region Laterality Modality Other Narrative Procedure Note Scanner - 11/04/2011 12:00 AM [employer] CAPTAIN us Scanner OTHER Final Result * COLONOSCOPY SCREENING (06/23/2011) us Shauna Mendez GI PROCEDURE ORD Final Result from Last 3 Months or Most Recently Relevant to Health Maintenance Insurance [facility] MEDICARE PART B HB ONLY MEDICARE PB ONLY [facility] PB ONLY WORKERS COMP Advance Directives * Full Code (Latest Code Status on File) Date Activated Date Inactivated Comments 05/08/2007 8:41 AM 05/08/2007 3:58 PM * Full Code Date Activated Date Inactivated Comments 05/08/2007 6:32 AM 05/08/2007 8:41 AM Care Teams Child Custody Evaluator Relationship Specialty Start Date End Date Liat Lee MD [address] [place] [id number] PCP - General 12/07/14
--- OUTSIDE RECORDS SUMMARY | 2024-11-03 16:31 | XMS_ITS | Clinical Summary ---
Author Organization [facility] Address [address] [place] [address] Care Team Providers Care Ciso Name Role Phone Unavailable Primary Care Provider Unavailabl e Source Comments Patient records contain information from all sites at [facility]. For routine questions regarding patient records, call [phone] during business hours, M-F 8:00 AM - 5:00 PM Central Time. Record requests for emergency care only can be directed to [phone] at any time.[facility] Allergies Active Allergy Reactions Criticality Noted Date Comments Sulfa (Sulfonamide Antibiotics) Hives (Reselect Reaction),Itching,Rash 05/07/2007 Medications * This document contains information received from the source organization and may not represent a complete record from that organization. traZODone (DESYREL) 50 mg tablet Take 50-100 mg by mouth at bedtime. Taking 50-100 mg bedtime prn - pt reports usually taking two each night. Active CHOLECALCIFEROL , VITAMIN D3, ORAL Take 5,000 Units by mouth daily. 1 Active aspirin-acetami nophen-caffeine (EXCEDRIN MIGRAINE) 250-250-65 mg per tablet Take 1 tablet by mouth as needed for headaches. 0 Active clobetasol (TEMOVATE) 0.05 % cream Apply 1 application topically as needed (Lichen Sclerosis). Active buPROPion XL (WELLBUTRIN XL) 150 mg 24 hr tablet Take 150 mg by mouth every morning. 2 Active magnesium glycinate 100 mg magnesium capsule Take by mouth. Activ e prednisoLONE acetate (PRED FORTE) 1 % ophthalmic suspension In the operative eye starting the day after surgery, 1 drop 4 (four) times a day for 7 days, THEN 1 drop 3 (three) times a day for 7 days, THEN 1 drop 2 (two) times a day for 7 days, THEN 1 drop daily for 7 days. Then Stop 10 mL 1 4 Active ketorolac (ACULAR) 0.5 % ophthalmic solution In the operative eye, 1 drop 4x/d starting 3 days before surgery. Skip surgery day. After surgery 1 drop 4x/d for 1 wk then 1 drop 3x/d for 1 wk then 1 drop 2x/d for 1 wk then 1 drop 1x/d for 1 wk then stop 5 mL 1 4 Active Active Problems Problem Noted Date Diagnosed Date Age Related [...] Floor Female 09/14/2010 Cancer Breast Personal History Encounters Date Type Department Care Team Description 08/26/2024 Orders Only Department of Ophthalmology in [place], [place] [address] [place] [address] Darrell Khan M.D. 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 disposal plant operator) Td Preservative Free (TENIVA C, DECAVAC) 07/30/2020 Td, (Adult) Unspecified 06/06/1999 Tdap 10/02/2011 TyVi (inj) 07/24/2002 Typhoid, Unspecified 07/24/2002 influenza trivalent high dos e (HD)(PF) 07/30/2020,08/27/2019,07/17/2018,2016 typhoid vaccine, parenteral (discontinued) 07/24/2002 Family [...] Brother 3 Eliezer Anxiety disorder Daughter Milena Alcohol abuse Father Bill Anxiety disorder Father [...] Bill Sr Depression Paternal Grandfather Bill Sr Glaucoma Paternal Grandmother Carolyn Kidney disease Paternal Grandmother Carolyn Anxiety disorder [...] Suicide Attempts Sister 2 Me - Fatmata Macular degeneration Neg Hx Relation Name Status Comments Brother 1 Rich Brother 2 Bill Jr Brother 3 Eliezer Daughter Milena Father Bill Father's Brother Roberto Father's Sister Brittani Maternal Grandfather Richmond Browning Maternal Grandmother Fabiana Mother Kelley Mother's Brother Rajinder Other Paternal Grandfather Graham Cao Paternal Grandmother Carolyn Sister 1 Harman Sister 2 Me - Fatmata Social History Tobacco Use Types Packs/Day Years Used Date Smoking Tobacco: Former Cigarettes 0.3 9 0 10/29/1972 - 10/29/1981 Smokeless Tobacco: Never Tobacco Cessation:Counseling Given: Not Answered Alcohol Use Standard Drinks/Week Comments Yes 1 (1 standard drink = 0.6 oz pur e alcohol) 1-2 glasses of wine per month [facility] Utilities Answer Date Recorded In the past 12 months has [employer], gas, oil, or water company threatened to shut off services in your home? No 03/13/2024 Social Connection and Isolat ion Panel [NHANES] Answer Date Recorded In a typical week, how many times do you talk on the phone with family, friends, or neighbors? More than three times a week 09/05/2021 How often do you get togethe r with friends or relatives? Once a week 09/05/2021 How often do you attend chur ch or latter-day services? Never 09/05/2021 Do you belong to any clubs o r organizations such as yarsanism groups, unions, fraternal or athletic groups, or [...] Answer Date Recorded PHQ-2 Score 4 09/12/2021 [place] [facility] Occupat ional [facility] - Occupational Stress Questionnaire Answer Date Recorded [...] to strenuous exercise (like a brisk walk)? 4 days 03/13/2024 On average, how many minutes do you engage in exercise at this level? 40 min 03/13/2024 Hunger Vital Sign Answer Date Recorded Within the past 12 months, y ou worried that your food would run out before you got the money to buy more. Never true 03/13/20 24 Within the past 12 months, t he food you bought just didn't last and you didn't have money to get more. Never true 03/13/2024 PRAPARE - Transportation Answer Date Re corded In the past 12 months, has l ack of transportation kept you from medical appointments or from getting medications? No 02/26 In the past 12 months, has l ack of transportation kept you from meetings, work, or from getting things needed for daily living? No 03/13/2024 Depression Answer Date Recor ded PHQ-9 Total Score (max 27) 14 09/12 Nutrition Answer Date Recorded On average, how many serving s of fruits and vegetables do you eat per day (serving size is equal to 1 cup or approximately the size of a tennis ball)? 3-5 03/13/2024 Dental Answer Date Recorded Dental: Regular Dentist Yes 10/26/20 Employment Answer Date Recorded Employment status Retired 03/13/2024 Housing Stability Answer Date Recorded What is your living situation today? I have a [facility] place to live 03/13/2024 Education Answer Date Recorded What is the highest level of school you have completed or the highest degree you have received? 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 Gender Identity Female 07/01/2019 12:33 PM CDT Sexual Orientation Straight 07/01/2019 12 :33 PM CDT Last Filed Vital Signs Vital Sign Reading Time Taken Comments Blood Pressure 155/88 06/17/2024 3:02 PM CDT Pulse 80 06/17/2024 3:02 PM CDT Temperature 36.6 C (97.9 F) 06/17/2024 3:02 PM CDT Respiratory Rate 16 06/17/2024 3:02 PM CDT Oxygen Saturation 94% 06/17/2024 3:02 PM CDT Inhaled Oxygen Concentration - - Weight 70.1 kg (154 lb 10.4 oz) 06/17/2024 3:02 PM CDT Height 161.8 cm (5' 3.7) 06/17/2024 3:02 PM CDT Body Mass Index 26.8 06/17/2024 3:02 PM CDT Plan of Treatment Upcoming Encounters Date Type Department Care Team (Latest Contact Info) Description 02/24/2025 11:05 AM CDT Hospital Encounter Outpatient Procedure Center in [place], [place] [address] [place] [address] Darrell Khan M.D. [address] [place] [phone] 02/24/2025 12:35 PM CDT - 02/24/2025 1:10 PM CDT Surgery Outpatient Procedure Center in [place], [place] [address] [place] [address] Darrell Khan M.D. [address] [place] [phone] Right PHACOEMULSIFICATION CATARACT WITH INTRAOCULAR LENS IMPLANTATION 03/19/2025 9:55 AM CDT Hospital Encounter Outpatient Procedure Center in [place], [place] [address] [place] [address] Darrell hKan M.D. [address] [place] [phone] 03/19/2025 11:25 AM CDT - 03/19/2025 12:00 PM CDT Surgery Outpatient Procedure Center in [place], [place] [address] [place] [address] Darrell Khan M.D. [address] [place] [address] Left PHACOEMULSIFICATION CATARACT WITH INTRAOCULAR LENS IMPLANTATION Scheduled Procedures Name Priority Associated Diagnoses Date/Ti me PHACOEMULSIFICATION CATARACT WITH INTRAOCULAR LENS IMPLANTATION Age Related Nuclear Cataract Bilateral 02/24/2025 12:35 PM CDT PHACOEMULSIFICATION CATARACT WITH INTRAOCULAR LENS IMPLANTATION Age Related Nuclear Cataract Bilateral 03/19/2025 11:25 AM CDT Health Maintenance Due Date Last Done Comments Bone Density Scan (Osteoporosis Screen) 1952 CT Colonography 1950 Cologuard 1950 Hepatitis C Screening 1950 Zoster Vaccines (1 of 2) 1971 IPV Vaccines (2 of 3 - Adult catch-up series) 07/11/1999 06/13/1999 Colonoscopy 06/23/2016 06/23/2011 Colorectal Cancer Surveillance 06/23/2016 Depression Screening (Annual PHQ-2) 10/29/2023 COVID-19 Vaccine ( season) 2024 09/11/2023, 07/12/2022, 02/28/2022, Additional history exists Influenza Vaccine (#1) 2024 , 07/12/2022, 09/12/2021, Additional history exists Fasting Glucose for Diabetes Screening 03/09/2026 03/09/2023, 09/16/2021 DTaP,Tdap,and Td Vaccines (5 - Td or Tdap) 07/30/2030 07/30/2020, 10/02/2011, 06/06/1999, Additional history exists Hepatitis A Vaccines Completed 05/23/2000, 06/13/19 99 Hepatitis B Vaccines Completed 06/06/2009, 06/06/2009, 06/06/1999, Additional history exists Pneumococcal vaccine (50+ years) Completed 11/19/2018, 10/24/2017 Fall Risk Screen (Annual) Completed 12/17/2023 HPV Vaccines Aged Out No longer eligi ble based on patient's age to complete this topic Medical Devices Implanted Type Area Engineering Model Maker Device Identifier Shelf Expiration Date Model / Serial / Lot Clp Hrzn Ti 6 Clp Sm Red - [id number] Implanted:Qty: 2 on 07/29/2019 by Nella Gerber M.D. at [facility] Hardware e.g. pins/screws/r ods [employer] [id number] / / Clp Hrzn Ti 6 Clp Gareth - [id number] Implanted:Qty: 2 on 07/29/2019 by Nella Gerber M.D. at [facility] Hardware e.g. pins/screws/r ods [employer] [id number] / / Explanted Type Area Engineering Model Maker Device Identifier Shelf Expiration Date Model / Serial / Lot Imaging Marker Explanted:10/2018 (Quantity not on file) Imaging Marker Breast Procedures Procedure Name Priority Date/Time Associated Diagnosis Comments COMPREHENSIVE METABOLIC PANEL, S/P Routine 03/09/2023 2:35 PM CDT Cramp And Spasm from Last 3 Months or Most Recently Relevant to Health Maintenance Results * Comprehensive Metabolic Panel (03/09/2023 2:35 PM CDT) Potassium, S 4.5 3.6 - 5.2 mmol/L [...] 2:35 PM CDT 03/09/2023 3:31 PM CDT Aida Lynn APRN, C.N.P., M.S.N. LAB BLO OD ADD-ON Final Result [facility] [address] [place] [address], [facility] [address] [place] [address] from Last 3 Months or Most Recently Relevant to Health Maintenance Insurance MEDICARE BLUE [place] [facility] Advance Directives For more information, please contact: [phone] * Full Code (Latest Code Status on File) Date Activated Date Inactivated Comments 07/29/2019 6:04 PM 07/30/2019 3:04 PM Question Answer Comments Full Code: Not Discussed Due to: Patient not available * Full Code Date Activated Date Inactivated Comments 07/29/2019 7:14 AM 07/29/2019 6:04 PM Question Answer Comments Full Code: Not Discussed Due to: Not medically appropriate
--- OUTSIDE RECORDS SUMMARY | 2024-11-03 16:31 | XMS_ITS | Referral Summary ---
Author Organization [facility] Address [address] [place] [address] Care Team Providers Care Poem Writer Name Role Phone Unavailable Primary Care Provider Unavailabl e Source Comments Patient records contain information from all sites at [facility]. For routine questions regarding patient records, call [phone] during business hours, M-F 8:00 AM - 5:00 PM Central Time. Record requests for emergency care only can be directed to [phone] at any time.[facility] Encounters Date Type Department Care Team Description 08/26/2024 Orders Only Department of Ophthalmology in [place], [place] [address] [place] [address] Darrell Khan M.D. 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) Td Preservative Free (TENIVA C, DECAVAC) 07/30/2020 Td, (Adult) Unspecified 06/06/1999 Tdap 10/02/2011 TyVi (inj) 07/24/2002 Typhoid, Unspecified 07/24/2002 influenza trivalent high dos e (HD)(PF) 07/30/2020,08/27/2019,07/17/2018,2016 typhoid vaccine, parenteral (discontinued) 07/24/2002 Social History Tobacco Use Types Packs/Day Years Used Date Smoking Tobacco: Former Cigarettes 0.3 9 0 10/29/1972 - 10/29/1981 Smokeless Tobacco: Never Tobacco Cessation:Counseling Given: Not Answered Alcohol Use Standard Drinks/Week Comments Yes 1 (1 standard drink = 0.6 oz pur e alcohol) 1-2 glasses of wine per month [employer] Answer Date Recorded In the past 12 months has [employer], gas, oil, or water [employer] threatened to shut off services in your [...] week 09/05/2021 How often do you attend [facility] or anabaptist services? Never 09/05/2021 Do you belong to any clubs o r organizations such as uatsdin groups, unions, fraternal or athletic groups, or [...] Answer Date Recorded PHQ-2 Score 4 09/12/2021 [facility] of Occupat ional [facility] - Occupational Stress Questionnaire Answer Date [...] your living situation today? I have a [facility] place to live 03/13/2024 Education Answer Date Recorded What is the highest level of school you have completed or the highest degree you have received? 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 [address] [place] [phone] 02/24/2025 12:35 PM CDT - 02/24/2025 1:10 PM CDT Surgery Outpatient Procedure Center in [place], [place] [address] [place] [address] Darrell Khan M.D. [address] [place] [phone] Right PHACOEMULSIFICATION CATARACT WITH INTRAOCULAR LENS IMPLANTATION 03/19/2025 9:55 AM CDT Hospital Encounter Outpatient Procedure Center in [place], [place] [address] [place] [address] Darrell Khan M.D. [address] [place] [phone] 03/19/2025 11:25 AM CDT - 03/19/2025 12:00 PM CDT Surgery Outpatient Procedure Center in [place], [place] [address] [place] [address] Darrell Khan M.D. [address] [place] [address] Left PHACOEMULSIFICATION CATARACT WITH INTRAOCULAR LENS IMPLANTATION Scheduled Procedures Name Priority Associated Diagnoses Date/Ti me PHACOEMULSIFICATION CATARACT WITH INTRAOCULAR LENS IMPLANTATION Age Related Nuclear Cataract Bilateral 02/24/2025 12:35 PM CDT PHACOEMULSIFICATION CATARACT WITH INTRAOCULAR LENS IMPLANTATION Age Related Nuclear Cataract Bilateral 03/19/2025 11:25 AM CDT Medical Devices Implanted Type Area Machine Setter Automatic Device Identifier Shelf Expiration Date Model / Serial / Lot Clp Hrzn Ti 6 Clp Red - [id number] Implanted:Qty: 2 on 07/29/2019 by Nella Gerber M.D. at [facility] Hardware e.g. pins/screws/r ods [employer] [id number] / / Clp Hrzn Ti 6 Clp Gareth - [id number] Implanted:Qty: 2 on 07/29/2019 by Nella Gerber M.D. at [facility] Hardware e.g. pins/screws/r ods [employer] [id number] / / Explanted Type Area Machine Setter Automatic Device Identifier Shelf Expiration Date Model / Serial / Lot Imaging Marker Explanted:10/2018 (Quantity not on file) Imaging Marker Breast Procedures Procedure Name Priority Date/Time Associated Diagnosis Comments COMPREHENSIVE METABOLIC PANEL, S/P Routine 03/09/2023 2:35 PM CDT Cramp And Spasm from Last 3 Months or Most Recently Relevant to Health Maintenance Results * Comprehensive Metabolic Panel (03/09/2023 2:35 PM CDT) [facility] Potassium, S 4.5 3.6 - 5.2 mmol/L [...] M.S.N. LAB BLO OD ADD-ON Final Result [facility] [address] [place] [address], [place] [facility] [facility] [address] [place] [address] from Last 3 Months or Most Recently Relevant to Health [place] [phone] MEDICARE [employer] Advance Directives For more information, please contact: [phone] * Full Code (Latest Code Status on [...]
--- OUTSIDE RECORDS SUMMARY | 2024-11-03 16:31 | XMS_ITS ---
Author Organization [facility] Address [address] [place] [address] Care Team Providers Care Enchilada Maker Name Role Phone Unavailable Unavailable Unavailable Surgery Details Not on file Complications Check Surgery Details section. Procedure Estimated Blood Loss Check Surgery Details section. Procedure Findings Check Surgery Details section. Procedure Specimens Taken Check Surgery Details section.
[2024-11-03 16:34] VITALS: BP 153/96; PULSE 66; RESP 18; TEMP 36.9; O2SAT 96; BMI 26.6
--- NOTE | 2024-11-03 17:47 | ED_ITS ---
HPI - Chest Pain General Date Seen: 11/03/24 Chief Complaint: Chest Pain Stated Complaint: Chest pain Time Seen by Provider: 11/03/24 17:31 History of Present Illness HPI narrative: 74-year-old female with a history of tremor, anxiety ( decreased dose of Wellbutrin last week), sleep apnea, and history of breast cancer Status post mastectomy and treatment 5 years ago. Currently thought to be cancer free. She has no known history of heart disease and had a normal stress test about 10 or 12 years ago. No history of DVT or PE. No recent travel. No recent immobilization. No leg swelling. She does have history of anxiety and was working with her psychologist so last week they reduced her dose of bupropion. She had been on on a 50 mg XL and last week they recent down to 50 mg of the sustained release tablet b.i.d. (total daily dose 100 mg). She notes that she has had a funny feeling of blood whooshing underneath her left clavicle that is been present off and on for about 6 days or so. Yesterday she was having friends over and was eating some spicy peanuts when she developed a bad pain underneath her left breast. She initially thought it might be heartburn from the spicy peanuts so she took some antacids. She also took some aspirin just in case. . Pain is been present ever since yesterday evening. It did get a bit better but did not resolve yesterday before bed. It got worse around 1:00 a.m. and woke her from sleep but then got better again. It has been present since she got up this morning but has been getting worse throughout the afternoon. No clear relationship to food or exertion. She also notes that admission to the pain she just feeling tired and exhausted today. She is not short of breath. Not coughing. The pain is not worsened with movements or palpation. Also today the pain radiates through to her back just inside of her left scapula. The pain is sharp. No hemoptysis. No abdominal pain. She is not feeling palpitations. Sometimes she feels the whooshing of blood underneath her left clavicle today. Family history includes stroke in her mother, high blood pressure and her sister. Patient has no history of cardiovascular disease, hypertension, high cholesterol. She is a former smoker but quit many years ago. No history of diabetes.. Related Data Home Medications ?Medication ?Instructions ?Recorded ?Confirmed bupropion HCl 150 mg 24 hr tablet, 150 mg PO DAILY 07/06/22 04/08/24 extended release clobetasol 0.05 % topical ointment 1 applic topical QDAY PRN 07/06/22 04/08/24 trazodone 50 mg tablet 50 mg PO .Bedtime 07/06/22 04/08/24 cholecalciferol (vitamin D3) 125 125 mcg PO QDAY 11/05/23 04/08/24 mcg (5,000 unit) tablet multivitamin 1 tab PO QDAY 11/05/23 04/08/24 fluconazole 150 mg tablet 300 mg PO ONCE 07/10/24 07/10/24 Allergies Allergy/AdvReac Type Severity Reaction Status Date / Time Sulfa (Sulfonamide Allergy Rash Verified 04/08/24 10:16 Antibiotics) [facility] Medical History (Updated 11/03/24 @ 21:57 by Darrell Chen MD) 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 - Other specified soft tissue disorders (ICD-10) History of gestational diabetes mellitus (GDM) ?Z86.32 - Personal history of gestational diabetes (ICD-10) Surgical History History of squamous cell carcinoma of skin (2016) ?Z85.828 - Personal history of other malignant neoplasm of skin (ICD-10) History of repair of rectocele (1997) ?Z98.890 - Other specified postprocedural states (ICD-10) History of left mastectomy (07/29/19) ?Z90.12 - Acquired absence of left breast and nipple (ICD-10) History of appendectomy (1963) ?Z90.49 - Acquired absence of other specified parts of digestive tract (ICD- 10) Family History Mother Atrial fibrillation Maternal Grandmother Atrial fibrillation Social History (Updated 07/09/23 @ 16:44 by Prerna [place] ~ [facility]) What is your current living situation?: I presently have a place to live Problems where you live: no known problems In the past 12 months, utilities in danger of being shut off: no In past 12 months, lack of transportation kept you from medical appts, meetings, work, or getting things needed for daily living: no In the past 12 mos, have been you worried that your food would run out before you had money to buy more?: never true In the past 12 mos, the food you bought just didn't last and you didn't have money to buy more?: never true Smoking Status: Former smoker How often do you have a drink containing alcohol: monthly or less AUDIT-C Alcohol total score: 1 Non-prescribed substance use: denies use How often does anyone, including family, friends and others, physically hurt you : never How often does anyone, including family, friends and others, insult or talk down to you: never How often does anyone, including family, friends and others, threaten you with harm: never How often does anyone, including family, friends and others, scream or curse at you: never Exam Narrative Exam Narrative: Constitutional: Appears well-developed and well-nourished. Alert. Conversant. Non toxic. HENT: Head: Atraumatic. Nose: Nose normal. Mouth/Throat: Oral mucosa is clear and moist. no trismus. Pharynx normal. Tonsils symmetric. No tonsillar enlargement, erythema, or exudate. Eyes: Conjunctivae normal. EOM normal. Pupils equal, round, and reactive to light. No scleral icterus. Neck: Normal range of motion. Neck supple. No tracheal deviation present. no JVD Cardiovascular: Normal rate, regular rhythm. No gallop. No friction rub. No murmur heard. Symmetric radial and posterior tibial artery pulses Pulmonary/Chest: Effort normal. No stridor. No respiratory distress. No wheezes. No rales. No rhonchi . No tenderness. Abdominal: Soft. Bowel sounds normal. No distension. No mass. No tenderness. No rebound. No guarding. Musculoskeletal: RUE: Normal range of motion. No tenderness. No deformity LUE: Normal range of motion. No tenderness. No deformity RLE: Normal range of motion. No edema. No tenderness. No deformity LLE: Normal range of motion. No edema. No tenderness. No deformity Neurological: Alert and oriented to person, place, and time. Normal strength. CN II-VII intact. No sensory deficit. GCS eye subscore is 4. GCS verbal subscore is 5. GCS motor subscore is 6. Normal coordination Skin: Skin is warm and dry. No rash noted. No pallor. Normal capillary refill. Psychiatric: Normal mood. Normal affect. polite Const Vital Signs, click to edit/add: Vital Signs - 24 hr 11/03/24 16:34 11/03/24 21:14 11/03/24 21:16 Temperature 98.4 F Pulse Rate 66 67 Pulse Rate [Pulse Oximeter] 66 Respiratory Rate 18 Blood Pressure 175/102 H Blood Pressure [Right Upper Arm] 153/96 H Pulse Oximetry 96 97 97 Oxygen Delivery Method Room Air 11/03/24 21:18 Temperature Pulse Rate 69 Pulse Rate [Pulse Oximeter] Respiratory Rate Blood Pressure 172/91 H Blood Pressure [Right Upper Arm] Pulse Oximetry 99 Oxygen Delivery Method Course Vital Signs Vital signs: Initial Vital Signs Temperature 98.4 F 11/03/24 16:34 Temperature Source Temporal Artery Scan 11/03/24 16:34 Pulse Rate 66 11/03/24 16:34 Respiratory Rate 18 11/03/24 16:34 Blood Pressure 153/96 H 11/03/24 16:34 Blood Pressure Mean 115 H 11/03/24 16:34 Pulse Oximetry 96 11/03/24 16:34 Oxygen Delivery Method Room Air 11/03/24 16:34 Vital Signs Temperature 98.4 F 11/03/24 16:34 Pulse Rate 66 11/03/24 16:34 Respiratory Rate 18 11/03/24 16:34 Blood Pressure 153/96 H 11/03/24 16:34 Pulse Oximetry 96 11/03/24 16:34 Oxygen Delivery Method Room Air 11/03/24 16:34 Temperature 98.4 F 11/03/24 16:34 Pulse Rate 69 11/03/24 21:18 Respiratory Rate 18 11/03/24 16:34 Blood Pressure 172/91 H 11/03/24 21:18 Pulse Oximetry 99 11/03/24 21:18 Oxygen Delivery Method Room Air 11/03/24 16:34 Medications Administered Medications: Discontinued Medications Generic Name Dose Route Start Last Admin Trade Name Freq PRN Reason Stop Dose Admin Aspirin 162 mg 11/03/24 18:40 11/03/24 18:50 Aspirin 81 Mg Tab.Chew PO 11/03/24 18:41 162 mg ONCE ONE Administration MDM - Chest Pain MDM Narrative Medical decision making narrative: This patient presents to the ER today for evaluation of chest pain that began yesterday afternoon his persisted for night and through today until her visit this evening.. Differential was broad. No evidence of palpitations, syncope or other cardiac dysrhythmia. We considered possible ACS, however workup with EKG and troponin is negative. HEART score is 3. Given time since onset of symptoms, I do not think the patient needs to be admitted for further sets of enzymes. EKG shows no evidence for pericarditis. Clinical presentation not suggestive of myocarditis. Chest x-ray shows no evidence for pneumonia, pneumothorax, pulmonary edema, pleural effusion, rib fracture, cardiomegaly. With her ?whooshing feeling of blood flowing through her vessel under left clavicle and her chest pain with radiation of sharp pain through to left intrascapular region consider aortic dissection. CT chest aortic protocol is obtained and is fortunately normal P We considered PE for this patient. She has no recent travel or immobilization, no signs or symptoms of DVT, no history of hypercoagulability, is 5 years out from breast cancer without any active malignancy. At this point low risk for PE. At this point we feel that the risk of contrast nephropathy with a repeat dye load to run a CT PA would outweigh the benefit. No wheezing or bronchospasm to suggest COPD/asthma. No signs of chest wall cellulitis, shingles, injury. Patient wonders if her chest pain could be related to reflux as it that started yesterday after she ate some spicy peanuts. Will try her apparently on a course of [id number] omeprazole and she will try [id number] antacids. With reasonable clinical confidence, I think the patient is safe for outpatient follow up. Discussed return precautions. She will follow up with primary care within 3-4 days for re-evaluation. Although she is low risk by heart pathway, she will discussed with her primary about possible stress testing. Precautions for return to the ER reviewed. Questions answered. Patient voices comfort with the plan. Lab Data Labs: Lab Results 11/03/24 11/03/24 Range/Units 18:40 18:56 WBC 7.07 (4.50-11.00) K/uL RBC 4.60 (4.00-5.20) m/uL Hgb 13.5 (12.0-16.0) gm/dL Hct 41.7 (33.0-51.0) % MCV 91 (80-100) fL MCH 29 (26-34) pg MCHC 32 (32-36) gm/dL RDW Coeff of Jax 12.6 (11.5-15.5) % Plt Count 215 (140-440) K/uL Neut % (Auto) 47.5 (42.0-72.0) % Lymph % (Auto) 40.0 (20-44) % [place] % (Auto) 5.9 (0.0-11.0) % Eos % (Auto) 5.9 (0.0-7.0) % Baso % (Auto) 0.6 (0.0-3.0) % Neut # (Auto) 3.35 (1.7-7.0) K/uL Lymph # (Auto) 2.83 (0.90-2.90) K/uL [place] # (Auto) 0.40 (0.00-0.90) K/UL Eos # (Auto) 0.42 (0.00-0.50) K/uL Baso # (Auto) 0.04 (0.00-0.30) K/uL Abs Immat Gran (auto) 0.01 (0.00-0.30) K/uL Imm/Tot Granulo (auto) 0.1 % Sodium 137 (135-149) mmol/L Potassium 4.0 (3.6-5.1) mmol/L Chloride 102 (96-114) mmol/L Carbon Dioxide 28 (20-32) mmol/L Anion Gap 7 (7-15) mEq/L BUN 28 (7-30) mg/dL Creatinine 0.7 (0.5-1.5) mg/dL Estimated Creat Clear 42.07 Estimated GFR 92 ml/min Glucose 95 (60-115) mg/dL Calcium 9.4 (8.4-10.6) mg/dL Troponin I < 0.01 L (0.01-0.04) ng/mL Imaging Data CT scan - chest: Attestation: I have reviewed the pertinent imaging results. Radiologist's impression: IMPRESSION: No acute intrathoracic abnormality, including aortic aneurysm or dissection as questioned. Discharge Plan Discharge Clinical Impression: Chest pain Patient Disposition: Home, Self-Care Condition: Stable Instructions: Chest Pain (DC) Additional Instructions: As we discussed, so far your workup looks reassuring. No sign of a heart attack or heart damage. The blood vessels coming out of your heart looked normal on the CT scan. Lungs also looked normal on the CT scan. At this point we do not know the cause of your chest pain for sure. However there is no sign that it is a heart attack. please monitor your symptom carefully and if you are having worsening chest pain or other new concerning symptoms such as trouble breathing, palpitations, dizzy spells or fainting, please come back to the ER right away. Please recheck with your regular doctor within 3-4 days Prescriptions: No Action fluconazole 150 mg tablet 300 mg PO ONCE Rx Instructions: 2 tabs 72 hours later bupropion HCl 150 mg tablet extended release 24 hr 150 mg PO DAILY trazodone 50 mg tablet 50 mg PO .Bedtime clobetasol 0.05 % ointment 1 applic topical QDAY PRN multivitamin Tablet 1 tab PO QDAY cholecalciferol (vitamin D3) 125 mcg (5,000 unit) tablet 125 mcg PO QDAY Follow Up/Referrals: Tammie Ojeda MD [Primary Care Provider] - Stand Alone Forms: [facility] Info Instructions
--- NOTE | 2024-11-03 18:40 | CRLHL7_ITS ---
For Patients: As a result of the Century Cures Act, medical imaging exams and procedure reports are released immediately into your electronic medical record. You may view this report before your referring provider. If you have questions, please contact your health care provider. INDICATION: Chest pain. TECHNIQUE: CTA chest was acquired with 95 cc Isovue 370 IV contrast. COMPARISON: None. FINDINGS: Lungs and pleura: No suspicious nodules or infiltrates. No pleural effusions, pleural thickening, or pneumothorax. Heart and vasculature: Heart size is normal. Thoracic aorta and pulmonary artery are normal in caliber.No aortic dissection. No central pulmonary embolism. Lymph nodes/mediastinum: No mediastinal, hilar, or axillary adenopathy. Chest wall: No masses. Upper abdomen: Normal. Bones: Unremarkable for age. IMPRESSION: No acute intrathoracic abnormality, including aortic aneurysm or dissection as questioned. Please note that all CT scans at this facility use dose modulation, iterative reconstruction, and/or weight-based dosing when appropriate to reduce radiation dose to as low as reasonably achievable. Dictated by Victor Manuel Malave MD @ 11/03/2024 8:22:10 PM (Electronically Signed)
[2024-11-03] MEDS: ASPIRIN 81 MG TAB.CHEW 162 MG PO (18:50)
--- OUTSIDE RECORDS SUMMARY | 2024-11-03 19:05 | XMS_ITS ---
Author Organization [facility] Address [address] [place] [address] Care Team Providers Care Treasury Director Name Role Phone Unavailable Primary Care Provider [...] treatments are documented for this patient in [facility]. Treatments may have been administered in [...] was developed by a multidisciplinary team of [place] [facility] cancer providers to help you understand, discuss, [...] (Breast) Stephenie Gilman M.D. - Medical Oncology [place] M.D. - Radiation Oncology Yuridia Lainez [facility] Counselor - Clinical Genomics Michaela Sharpe APRN, CHIEF CLERK SHELTER - Breast Clinic Cancer Diagnosis and Staging [...] mm. Repeat ultrasound the left breast [facility] on 07/16/2019 showed the left breast lesion [...] free margin of 14 mm for both. [place] lymph node labeled 1. Had 1 lymphnode that was negative for metastatic carcinoma. [place] lymph node labeled as 2. Had 2 [...] are largely based on guidelines from the [place] [employer] of Clinical On[employer] (ASCO), the biggest cancer society regarding clinical practice. -Physical examinations should be performed every 3 to 6 months for the first 3 years, every 6 to 12months for years 4 and 5, and annually thereafter. Surveillance visits How often: Every three months With Who: Medical Oncology Additional information: Imaging (mammograms) How often: yearly Where: [facility] Additional information: Follow-up care with your Primary [...] your life, including relationships, school, work, and [place] health care facility plans. Anger is a normal response to [...] you, such as physical therapists, occupational therapists, safety aide, or mental health care providers Coping With [...] spiritual framework. -Talk with your spiritual or senior biostatistician/group leader to help guide you through some of the questions raised by your illness. -Consider using the [facility] staff at [facility] to help you with your spiritual questions. [...] fat tissue -Talking to a dietitian or joy operator helper who can help you plan a healthy [...] your doctor to help you quit. The [facility] can help. Stress management [...]
--- OUTSIDE RECORDS SUMMARY | 2024-11-03 19:05 | XMS_ITS | Clinical Summary ---
Author Organization [facility] Address [place], [place] [address] Care Team Providers Care Liaison Officer Name Role Phone Liat Lee MD Primary Care Provider [phone] Allergies Active Allergy Reactions Criticality Noted Date Comments Sulfa (Sulfonamide Antibiotics) Rash,Itching Sulfa (Sulfonamide Antibiotics) Rash 06/30 Medications clobetasol 0.05% (TEMOVATE 0.05% OINTMENT) 0.05 % ointment Apply topically to affected area(s) 2 times daily. 1 Tube 0 0 Active Magnesium Glycinate 100 mg Tab Take by mouth. 0 1 Active L Glutamine-N hhle-Twu-Tel-Mi n 10-600-140 g-mg-mg Pack Take by mouth. [...] brain MRI 01/29/2012 Overview (01/29/2012): Done at [facility] in 2011, 3 cm white matter lesion, a few other small lesions, nonspecific findings. Lichen sclerosus 01/25/2012 Overview (01/25/2012): Followed at [facility] as of 01/25/2012 Memory loss 10/02/2011 Immunizations [...] on file Legal Sex Female 7:23 AM EXECUTIVE RELATIONS SPECIALIST Gender Identity Not on file Sexual Orientation Not on file Obstetrics History Last Filed Vital Signs Vital Sign Reading Time Taken Comments Blood Pressure 118/77 08/03/2021 10:18 AM CDT Pulse 68 08/03/2021 10:18 AM CDT Temperature 38.1 C (100.6 F) 09/08/2017 8:18 PM EXECUTIVE RELATIONS SPECIALIST Respiratory Rate 20 09/08/2017 8:18 PM EXECUTIVE RELATIONS SPECIALIST Oxygen Saturation 98% 08/03/2021 10: 18 AM CDT Inhaled Oxygen Concentration - - Weight 66.6 kg (146 lb 12.8 oz) 021 10:18 AM CDT Height 165.1 cm (5' 5) 09/10/2019 8:00 AM EXECUTIVE RELATIONS SPECIALIST Body Mass Index 24.43 09/10/2019 8:00 AM EXECUTIVE RELATIONS SPECIALIST Plan of Treatment Health Maintenance Due Date [...] Diagnosis Comments SCAN-MAMMOGRAPHY REPORT 11/04/2011 12:00 AM EXECUTIVE RELATIONS SPECIALIST COLONOSCOPY SCREENING Routine 06/23/2011 Colon polyp from Last 3 Months or Most Recently Relevant to Health Maintenance Results * SCAN-MAMMOGRAPHY REPORT (11/04/2011 12:00 AM EXECUTIVE RELATIONS SPECIALIST) Anatomical Region Laterality Modality Other Narrative Procedure Note Scanner - 11/04/2011 12:00 AM EXECUTIVE RELATIONS SPECIALIST us Scanner OTHER Final Result * COLONOSCOPY SCREENING (06/23/2011) us Shauna Mendez GI PROCEDURE ORD Final Result from Last 3 Months or Most Recently Relevant to Health Maintenance Insurance [facility] MEDICARE PART B HB ONLY MEDICARE PB ONLY [facility] PB ONLY WORKERS COMP Advance Directives * Full Code (Latest Code Status on File) Date Activated Date Inactivated Comments 05/08/2007 8:41 AM 05/08/2007 3:58 PM * Full Code Date Activated Date Inactivated Comments 05/08/2007 6:32 AM 05/08/2007 8:41 AM Care Teams Liaison Officer Relationship Specialty Start Date End Date Liat Lee MD [address] [place] [id number] PCP - General 12/07/14
--- OUTSIDE RECORDS SUMMARY | 2024-11-03 19:05 | XMS_ITS ---
Author Organization [facility] Address [address] [place] [address] Care Team Providers Care Capacity Analyst Name Role Phone Unavailable Unavailable Unavailable Surgery Details Not on file Complications Check Surgery Details section. Procedure Estimated Blood Loss Check Surgery Details section. Procedure Findings Check Surgery Details section. Procedure Specimens Taken Check Surgery Details section.
--- OUTSIDE RECORDS SUMMARY | 2024-11-03 19:05 | XMS_ITS | Clinical Summary ---
Author Organization [facility] Address [address] [place] [address] Care Team Providers Care Screen Printing Equipment Setter Name Role Phone Unavailable Primary Care Provider Unavailabl e Source Comments Patient records contain information from all sites at [facility]. For routine questions regarding patient records, call [phone] during business hours, M-F 8:00 AM - 5:00 PM Central Time. Record requests for emergency care only can be directed to [phone] at any time.[facility] Allergies Active Allergy Reactions Criticality Noted [...] 08/26/2024 Orders Only Department of Ophthalmology in [place], [place] [address] [place] [address] Darrell Khan M.D. Age Related Nuclear Cataract Bilateral (Primary Dx) from Last 3 Months Immunizations Name Administration Dates Next Due DT, Pediatric 06/28/1989 HepA, Unspecified 05/23/2000,06/13/1999 HepB Adult 06/06/2009, 9,11/25/1998,1997 HepB, Unspecified 06/06/2009 IPV 06/13/1999 PCV13 10/24/2017 PPSV23 11/19/2018 RZV (SHINGRIX) 07/15/2019(Deferred: Not available from nuclear supervising operator) Td Preservative Free (TENIVA C, DECAVAC) [...] Fatmata Suicide Attempts Sister 2 Me - Fatamta Macular degeneration Neg Hx Relation Name Status [...] alcohol) 1-2 glasses of wine per month [facility] Utilities Answer Date Recorded In the past 12 months has [employer], gas, oil, or water company threatened [...] often do you attend chur ch or yarsani services? Never 09/05/2021 Do you belong to [...] Answer Date Recorded PHQ-2 Score 4 09/12/2021 [place] [facility] Occupat ional [facility] - Occupational Stress Questionnaire Answer Date Recorded [...] living situation today? I have a [facility] place to live 03/13/2024 Education Answer Date Recorded What is the highest level of school you have completed or the highest degree you have received? Master's degree (e.g., MA, MS, Greg, MEd, HEMSTITCHER, BERNARDO) 07/24/2019 Comments No Sex and Gender Information Value Date Recorded Sex Assigned at Female 07/01/2019 12:33 PM CDT Legal Sex Female 10:48 AM SPECIAL EVENTS FUNDRAISER Gender Identity Female 07/01/2019 12:33 PM CDT [...] CDT Hospital Encounter Outpatient Procedure Center in [place], [place] [address] [place] [address] Darrell Khan M.D. [address] [place] [phone] 02/24/2025 12:35 PM CDT - 02/24/2025 1:10 PM CDT Surgery Outpatient Procedure Center in [place], [place] [address] [place] [address] Darrell Khan M.D. [address] [place] [phone] Right PHACOEMULSIFICATION CATARACT WITH INTRAOCULAR LENS IMPLANTATION 03/19/2025 9:55 AM CDT Hospital Encounter Outpatient Procedure Center in [place], [place] [address] [place] [address] Darrell Khan M.D. [address] [place] [phone] 03/19/2025 11:25 AM CDT - 03/19/2025 12:00 PM CDT Surgery Outpatient Procedure Center in [place], [place] [address] [place] [address] Darrell Khan M.D. [address] [place] [address] Left PHACOEMULSIFICATION CATARACT WITH INTRAOCULAR LENS IMPLANTATION [...] this topic Medical Devices Implanted Type Area Extracting Machine Operator Device Identifier Shelf Expiration Date Model / Serial / Lot Clp Hrzn Ti 6 Clp Sm Red - [id number] Implanted:Qty: 2 on 07/29/2019 by Nella Gerber M.D. at [facility] Hardware e.g. pins/screws/r ods [employer] [id number] / / Clp Hrzn Ti 6 Clp Gareth - [id number] Implanted:Qty: 2 on 07/29/2019 by Nella Gerber M.D. at [facility] Hardware e.g. pins/screws/r ods [employer] [id number] / / Explanted Type Area Extracting Machine Operator Device Identifier Shelf Expiration Date Model / [...] M.S.N. LAB BLO OD ADD-ON Final Result [facility] [address] [place] [address], [facility] [[email or web address]] [facility] [place]note 2[facility] [address] [place] [address] from Last 3 Months or Most Recently Relevant to Health Maintenance Insurance MEDICARE BLUE [facility] Advance Directives For more information, please contact: [phone] * Full Code (Latest Code Status on [...]
--- OUTSIDE RECORDS SUMMARY | 2024-11-03 19:05 | XMS_ITS | Referral Summary ---
Author Organization [facility] Address [address] [place] [address] Care Team Providers Care Entry Level Lab Technician Name Role Phone Unavailable Primary Care Provider Unavailabl e Source Comments Patient records contain information from all sites at [facility]. For routine questions regarding patient records, call [phone] during business hours, M-F 8:00 AM - 5:00 PM Central Time. Record requests for emergency care only can be directed to [phone] at any time.[facility] Encounters Date Type Department Care Team Description 08/26/2024 Orders Only Department of Ophthalmology in [place], [place] [address] [place] [address] Darrell Khan M.D. 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 Never 09/05/2021 Do you belong to any clubs o r organizations such as holiness groups, unions, fraternal or athletic groups, or [...] Date Recorded PHQ-2 Score 4 09/12/2021 [facility] - Occupational Stress Questionnaire Answer Date [...] your living situation today? I have a [facility] place to live 03/13/2024 Education Answer Date Recorded What is the highest level of school you have completed or the highest degree you have received? 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 [address] [place] [phone] 02/24/2025 12:35 PM CDT - 02/24/2025 1:10 PM CDT Surgery Outpatient Procedure Center in [place], [place] [address] [place] [address] Darrell Khan M.D. [address] [place] [phone] Right PHACOEMULSIFICATION CATARACT WITH INTRAOCULAR LENS IMPLANTATION 03/19/2025 9:55 AM CDT Hospital Encounter Outpatient Procedure Center in [place], [place] [address] [place] [address] Darrell Khan M.D. [address] [place] [phone] 03/19/2025 11:25 AM CDT - 03/19/2025 12:00 PM CDT Surgery Outpatient Procedure Center in [place], [place] [address] [place] [address] Darrell Khan M.D. [address] [place] [address] Left PHACOEMULSIFICATION CATARACT WITH INTRAOCULAR LENS IMPLANTATION Scheduled Procedures Name Priority Associated Diagnoses Date/Ti me PHACOEMULSIFICATION CATARACT WITH INTRAOCULAR LENS IMPLANTATION Age Related Nuclear Cataract Bilateral 02/24/2025 12:35 PM CDT PHACOEMULSIFICATION CATARACT WITH INTRAOCULAR LENS IMPLANTATION Age Related Nuclear Cataract Bilateral 03/19/2025 11:25 AM CDT Medical Devices Implanted Type Area Emergency Medical Tech Device Identifier Shelf Expiration Date Model / Serial / Lot Clp Hrzn Ti 6 Clp Red - [id number] Implanted:Qty: 2 on 07/29/2019 by Nella Gerber M.D. at [facility] Hardware e.g. pins/screws/r ods [employer] [id number] / / Clp Hrzn Ti 6 Clp Gareth - [id number] Implanted:Qty: 2 on 07/29/2019 by Nella Gerber M.D. at [facility] Hardware e.g. pins/screws/r ods [employer] [id number] / / Explanted Type Area Emergency Medical Tech Device Identifier Shelf Expiration Date Model / Serial / Lot Imaging Marker Explanted:10/2018 (Quantity not on file) Imaging Marker Breast Procedures Procedure Name Priority Date/Time Associated Diagnosis Comments COMPREHENSIVE METABOLIC PANEL, S/P Routine 03/09/2023 2:35 PM CDT Cramp And Spasm from Last 3 Months or Most Recently Relevant to Health Maintenance Results * Comprehensive Metabolic Panel (03/09/2023 2:35 PM CDT) [facility] Potassium, S 4.5 3.6 - 5.2 mmol/L [...] M.S.N. LAB BLO OD ADD-ON Final Result [facility] [address] [place] [address], [place] DTL [facility] [address] [place] [address] from Last 3 Months or Most Recently Relevant to [place] [address] MEDICARE [facility] Advance Directives For more information, please contact: [phone] * Full Code (Latest Code Status on [...]
[2024-11-03 19:10] LABS: Basophils Absolute Auto 0.04 K/uL (0.00-0.30); Basophils Percent Auto 0.6 % (0.0-3.0); Eosinophils Absolute Auto 0.42 K/uL (0.00-0.50); Eosinophils Percent Auto 5.9 % (0.0-7.0); Hematocrit 41.7 % (33.0-51.0); Hemoglobin* 13.5 gm/dL (12.0-16.0); Immature Granulocytes Abs Auto 0.01 K/uL (0.00-0.30); Immature Granulocytes Pct Auto 0.1 %; Lymphocytes Absolute Auto 2.83 K/uL (0.90-2.90); Mean Corpuscular HGB Conc 32 gm/dL (32-36); Mean Corpuscular Hemoglobin 29 pg (26-34); Mean Corpuscular Volume 91 fL (80-100); Monocytes Percent Auto 5.9 % (0.0-11.0); Neutrophils Absolute Auto 3.35 K/uL (1.7-7.0); Neutrophils Percent Auto 47.5 % (42.0-72.0); Platelet Count* 215 K/uL (140-440); RDW Coefficient of Variation % 12.6 % (11.5-15.5); White Blood Count* 7.07 K/uL (4.50-11.00)
[2024-11-03 19:21] LABS: Slide Review Reflex No
[2024-11-03 19:23] LABS: Chloride* 102 mmol/L (96-114); Sodium* 137 mmol/L (135-149)
[2024-11-03 19:26] LABS: Anion Gap 7 mEq/L (7-15); Blood Urea Nitrogen* 28 mg/dL (7-30); Carbon Dioxide* 28 mmol/L (20-32); Creatinine* 0.7 mg/dL (0.5-1.5); Est. Creatinine Clearance* 42.07; Estimated Glomerular Filt Rate 92 ml/min
[2024-11-03 19:27] LABS: Calcium* 9.4 mg/dL (8.4-10.6); Glucose* 95 mg/dL (60-115)
[2024-11-03 19:47] LABS: Troponin I* < 0.01 ng/mL (0.01-0.04)
[2024-11-03 21:14] VITALS: PULSE 66; O2SAT 97
[2024-11-03 21:16] VITALS: BP 175/102; PULSE 67; O2SAT 97
[2024-11-03 21:18] VITALS: BP 172/91; PULSE 69; O2SAT 99
== END 2024-11-03 22:10 | disposition home or self-care (01) ==
PROVIDERS: Emergency Provider Emergency Medicine; PCP Internal Medicine
DX: R07.9 Chest pain, unspecified (principal); R32 Unspecified urinary incontinence
CPT/HCPCS: 36415; 71275; 80048; 84484; 85025; 97140; 97535; 99284; 99285; A9270; Q9967

== ENCOUNTER 2024-12-01 13:30 | Outpatient (RCR) | payer MEDICARE, BC, SELFPAY ==
--- NOTE | 2024-08-19 09:51 | PT.OPEX ---
PT [place] [facility] Eval PT [facility] Out[facility] Eval Start: 08/19/24 08:33 Freq: Status: Active Protocol: Document 08/19/24 08:33 ARR (Rec: 08/19/24 09:45 ARR [id number]) E-signed By Krystal Foote DPT Physical Therapy Outpatient Evaluation Insurance Information Recert Due Date 11/17/24 Insurance Name Medicare B Medical Diagnosis R32 unspecified urinary incontinence Treating Diagnosis Fecal urgency R15.2 R39.16 Straining to void N39.46 Mixed incontinence ( Urge and stress incontinence) Fecal incontinence R15 Referring MD Tammie Ojeda MD ([facility]) Subjective Preferred Name RAHUL Subjective -Subjective: Concerns of bladder and bowel issues 10-15 years. 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 Flares and goes into remission. Skin has thinned, labia has fused partially. Concerned with bowel for skin will rip. Has to do a manual assist for bowel. Will have episodes of bowel control. Has also had lifelong anxiety for disorder. Is sensitive to stress, with stress increases will notice more Bowel/bladder problems. With sneezing can lose full bladder. With urination feels as if she?s not completely emptying. Was told to walk around x 5 minutes then try empty again. First child was born breech, delivered vaginally, had double episiotomy cut in pie shape to get her out. -Had rare form of breast CA ? 5 years since treatment. Needs to maintain lowest rate of body weight. That?s why she drinks so much water. -Urinary: Increases in leakage with stress. At least 3x/wk, will have some leakage ? usually associated with an urge to go. Full loss of bladder will happen every few months ? this can happen with a sneeze or strong urgency. --Protection worn: none --Delay of urination: unable --Urinary urgency (any incontinence): yes. Is careful when going out, will modify water intake. Tries to urinate before leaving. --Strain to start or stop urine stream: yes for both. Tries to change position, compress belly, or walk around as noted above. --Hydration: 64 ounces water / 2 cups coffee / occasional drink every few months (147#) --Daytime urination: 7x --Nocturia: 1-2x ? uses sleeping pill at night for anxiety. Occasional leakage with urge to urinate. --Dysuria: no --Pressure/heaviness: no --Triggers: none -Bowel: Will bleed occasionally rectally, can rip in the skin. There?s a lot of fear with BM due to anxiety of skin ripping from Lichens. Has IBS. --Frequency: 1x/day after coffee or tea, in the AM --[place] chart: type 4 but will also has type 7. --Constipation: occasionally, can fluctuate. --Do you feel bowels fully evacuate with BM: not always, but mostly yes --Fecal leakage: can occur monthly or every 2 months --Fecal urgency: yes, leakage with urge to have BM. Other leakage can occur with activity and inability to hold stool back with urge. --Straining with BM: occasionally --Pain with BM: yes --Do you use pressure with hands to assist with BM: yes --Flatus incontinence: yes --Abdominal/rectal pain or symptoms: with skin tear --Do foods increase or decrease symptoms: not necessarily --Do you take bowel supplements: takes magnesium at night for cramping. -Sexual: Yes, with deeper thrusting --Leakage with intercourse: no -Menstrual history: --Menopause age: 54 -: G/P 2. Vaginal deliveries. First delivery see details above. 2nd delivery can?t recall. --Forceps or vacuum: no --Tearing or episiotomy: yes OTHER: --Pain with gynocological exam : no --Any chronic yeast infections : no --Chronic UTIs: no --Vaginal dryness: no --Uses clobetasol for vulvar tissues. Would like to use 1x/ wk for maintenance. With a flare 3x/day. No vaginal estrogen cream. -Surgical PMHx: repair of rectocele 1997, L mastectomy 08/16, appendectomy 1963. -PMHx: lichen sclerosus of vulva (Dr. Alfaro, gynecology, for her lichen sclerosus of the vulva (on topical clobetasol), and is now seen by a cloth sander, Dr. Tammie Koo), insomnia, GOGO, chronic TS pain , breast CA (L mastectomy 07/29 ? no chemo or radiation), squamous cell carcinoma of skin -Current exercise: walking, yoga, pilates. -Orthopedic issues: arthritis in ankles top of foot and hands. Cramping in LE?s abs, shins, randomly throughout body, including calves. -Goals: reducing bladder leakage, improve strength or address issues. Objective Other/Pertinent Objective Good upright posture No gait abnormalities noted Assessment Assessment/Impression Pt is a 74 y/o female who presents with concerns of urge incontinence, fecal urgency, and fecal incontinence ongoing 10-15 years. Subjectively, signs and symptoms likely indicating / consistent with increased tone into PFM but assessment next session will further assess. Initial evaluation spent with subjective gathering due to complex PMHx that is likely influencing symptoms including vaginal delivery with breech baby needing bilateral episiotomy for delivery, 20 yr h/o lichens sclerosis, history of rare form of breast CA. Patient is a good candidate for skilled therapy to target deficits described above. Skilled PT intervention is necessary for use of therapeutic exercise manual therapy, neuromuscular re- education, gait training, and therapeutic activity. Functional impairments include difficulty with: straining to empty, urge incontinence, fecal urgency. See appropriate sections of PT eval for complete list of goals and POC . D/C plan and criteria is for pt to achieve the goals as listed below or until max rehab potential is met. Pt was agreeable with plan of care and goals established. Evaluation and internal vaginal PFM assessment/ treatment with patient consent was requested and obtained. Plan of Care Physical Therapy Goals STG (within 5 visits) 1)Pt will demonstrate full ROM of pelvic floor with ability to contract, relax and lengthen for improved contractility of tissue during ADLs 2)Pt will be indep in recall of at least 4 urinary urge suppression techniques in order to increase duration of voiding interval 3) Pt will report reduced urinary leakage episodes no more than 1 per week for improved health of vaginal tissues ? LTG (within 10 visits ) 1)Pt will report reduced urinary leakage episodes no more than 2 per month for improved health of vaginal tissues 2)Pt will report voiding interval at least 2 hours without incontinence to show improved bladder filling prior to voiding 3) Pt will be able to utilize urge suppression strategies to calm urges to prevent urinary and fecal incontinence at least 80% of the time 4) Pt will report reduced fear of having bowel movement to improve ease of defecation without tissue tearing Treatment Plan/Direct Interventions Biofeedback,Gait Training, Joint Mobilization,Manual Therapy,Neuromuscular Re-ed, Self-Care/Home Management, Therapeutic Activities, Therapeutic Exercises, Ultrasound Frequency/Duration 1x/wk x 10 visits in 90 days Patient Will Be Discharged From Therapy Skills Plateau,Independent w/ HEP Evaluation Billing Untimed Code Treatment Minutes 30 Complexity Moderate Certification Information Initial Certification Date 08/19/24 Ending Certification Date 11/17/24 Provider Signature Required Yes Provider Signature Shows Agreement With POC & Medical Necessity Physician NPI Number Write NPI# Here Physician Comment/Change : Physician Signature & Date Requested Please Sign/Date Here
--- NOTE | 2024-11-17 16:33 | PT.OPDNX ---
PT [facility] Out[facility] Daily Note PT [place] Outpatient Daily Note Start: 08/19/24 08:33 Freq: Status: Active Protocol: Document 11/17/24 13:22 ARR (Rec: 11/17/24 16:33 ARR [id number]) E-signed By Krystal Foote DPT PT OP Daily Progress Note Visit Information Note Type Daily Note,Recert/Progress Note Visit Number [id number] Insurance Information Recert Due Date 02/16/25 Insurance Name Medicare B Insurance Information/Comments Eval 08/17/24 - 11/17/24 // - 8 visits // Medical Diagnosis R32 unspecified urinary incontinence Treating Diagnosis Fecal urgency R15.2 R39.16 Straining to void N39.46 Mixed incontinence ( Urge and stress incontinence) Fecal incontinence R15 Referring MD Tammie Ojeda MD ([facility]) Subjective Preferred Name RAHUL Subjective -Did pickleball playing nearly 2 hours, no urgency at all. -COld seems to bother urinary urgency -Did 28 days of yoga. Walking 5,000 steps during this time. Feeling gains back in flexibility -Voiding: no issues with urinary leakage over the last x 2 wks. -More issues with bowel. Feels like there is incomplete emptying. Feels staining and formed stool. Type 3. Daily. Can have staining and loss of bowel 3x/wk. Can tell when bowel leakage happen. Would like to have more improvement with bowel. -On two 14 day periods for acid blocking -Reducing from Wellbutrin - may have been covering IBS -Noted with splinting does this only when constipated and does it standing Precautions Treatment Precautions/Contraindications H/O trauma Home Exercise Home Exercise Comments OTHER: -bladder norms 08/19 -Urge suppression 08/19 -Bladder irritants 08/19 -more bladder diaries 08/19 Access Code: [email or web address] Objective Other/Pertinent Objective 11/17/24 RECTAL INTERNAL EXAM: -Sensation: intact to touch -Gaping: none -Tension/scar:none -Skin integrity: white patch discoloration to perineum -Lifting contraction: nil -Substitution patterns: PF and glut contraction -Bulge: nil -Hemhorroids: active hemhorroids noted at 11-3 oclock -Simulated straining: noting motor incoordination with PFC -Other: reduced tension from IAS is noted. PFC noting muscle tension at [place] bilaterally, reduced into IC bilaterally. Strength -Power (MMT): 1 -Endurance: 1 -Reps:1 -Brink score: squeeze pressure poor at level of EAS INTERNAL EXAMINATION INTRAVAGINAL 09/19/24: -Sensation: intact to touch -Observation: descended perineum. Phimosis 50% of clitoris. White discoloration to tissues at perineum consistent with Lichens. Resorption of inferior labia minora . -Perineum: lowered (convex) -Cough: bulge -Lifting contraction: lift from anal area, minimal clitoral nod -Bulge: bulge -Prolapse: posterior wall descent to level of hymen Tenderness/pain to palpation/ tone: -Layer 1: ischiocavernosus / bulbospongiousus / superficial transverse perineal on LEFT -Layer 2: sphincter urethrovaginalis on LEFT -Layer 3: pubococcygeus / iliococcygeus / coccygeus - inc'd Tone without TTP Strength ( R / C / L): -Power (MMT): 2 -Endurance: 4 -Reps: 2 -Fast twitch: NT -Relaxation of PFM after quick contractions: delayed Poor squeeze noted Other: -Breathing examination: dec?d posterior and lateral ribcage mvmt with inhalation -Coordination: TA inhibition with slight PF lift Patient Instructed in Risks/Benefits Yes Therapeutic Exercise Therapeutic Exercise Minutes (minutes) 15 Therapeutic Exercise: To Restore -External assessment as above Functional Status Self Care Management Training Self-Care Activity Minutes (minutes) 40 Self Care Management Training Education: -Splinting vaginally or at perineum -Consider working with stockfeed miller on improving bowels -Discussion various mechanisms for incomplete emptying - including obstructed defecation, dyssenergia Reminders: - Consider vaginal moisturizer or hyaluronic acid - During times of travel or changes in eating habits consider use of a ?proactive? stool softener or changes in magnesium. Also consider consistency of water intake bladder/bowel habits. - Bladder: ? Try not straining to empty bladder (squatty potty, feet flat, deep breathing, double voiding) ? Full bladder minimum 8-10 seconds. ? Consider standing and doing some weight shifts for double voiding. Even trying to lean more forward - Bowel ? Try adding piece of toast or yogurt for breakfast ? Slow down and chew your food . Consider putting fork down between bites. ? Continue use of squatty potty - Any flare of Lichens, consider more of a focus on mobility, deep breathing. Increased muscle tension may increase pelvic floor symptoms (bowel and urinary) Goals: -Consider working with stockfeed miller on improving bowels ? referral from PCP -Use ?belly big belly hard method? for bowel movements (+ squatty potty) -Trial splinting vaginally or at perineum KEEP WORKING ON Reminders: - Consider vaginal moisturizer or hyaluronic acid - During times of travel or changes in eating habits consider use of a ?proactive? stool softener or changes in magnesium. Also consider consistency of water intake bladder/bowel habits. - Any flare of Lichens, consider more of a focus on mobility, deep breathing. Increased muscle tension may increase pelvic floor symptoms (bowel and urinary) Bladder: ? Try not straining to empty bladder (squatty potty, feet flat, deep breathing, double voiding) ? Consider standing and doing some weight shifts for double voiding. Even trying to lean more forward Bowel ? Try adding piece of toast or yogurt for breakfast ? Slow down and chew your food . Consider putting fork down between bites. ? Continue use of squatty potty Defecation mechanics education : -Education on toileting posture including use of squatty potty, splinting of perineum as indicated, PFM relaxation -Belly big belly hard technique instruction in seated. Pt education on hand placement, breathing technique , and PFM relaxation. PT demonstration then pt practicing. Treatment Minutes Timed Code Treatment Minutes 55 Total Treatment Time 55 Billing Units Self-Care Activity Units 3 Therapeutic Exercise Units 1 Assessment/Impression Assessment/Impression Rectal assessment completed this date significant for EAS 1/5 and PFC 1/5, PF dyssynergia noted with PFC during attempts at bearing down, and external hemorrhoids . Factors above likely impacting bowel incontinence and straining. Also impacting is rectocele as well - likely to benefit from splinting but in a seated position vs standing. Pt to work on goals as above targeting belly big belly hard for defecation retraining progressing to integrating splinting back in when feeling ready. Plan of Care Physical Therapy Goals GOAL PROGRESS BELOW: STG (within 5 visits) 1)Pt will demonstrate full ROM of pelvic floor with ability to contract, relax and lengthen for improved contractility of tissue during ADLs - MET 2)Pt will be indep in recall of at least 4 urinary urge suppression techniques in order to increase duration of voiding interval - MET 3) Pt will report reduced urinary leakage episodes no more than 1 per week for improved health of vaginal tissues - MET ? LTG (within 10 visits ) 1)Pt will report reduced urinary leakage episodes no more than 2 per month for improved health of vaginal tissues - UNMET 2)Pt will report voiding interval at least 2 hours without incontinence to show improved bladder filling prior to voiding - PROGRESSING TOWARD 3) Pt will be able to utilize urge suppression strategies to calm urges to prevent urinary and fecal incontinence at least 80% of the time - PROGRESSING TOWARD 4) Pt will report reduced fear of having bowel movement to improve ease of defecation without tissue tearing - UNMET 5) Patient will report bowel incontinence not exceeding x 3 per month to improve health of tissues - NEW GOAL 11/17/24 Daily Plan of Care Comments -Belly big method, squatty, splinting mechanics -check visits scheduled -PFC progress in prone rectally -Consider sensation bladder diary Recertification Information Initial Certification Date 08/19/24 Recertification Start Date 11/18/24 Recertification Due Date 02/16/25 Reasons to Continue Skilled Therapy Pt had been seen for straining to void, mixed incontinence, fecal incontinence for 8 visits from 08/19/24 to during this episode of physical therapy. Focus of therapy on improving bladder health via urge suppression, voiding habits. Also on spine/ hip mobility, deep breathing, progressing to proximal strengthening. Interventions including ther exercise, manual therapy, self-care, neuromuscular re-education. Pt at this time has not met maximal therapeutic benefit and all short/jail goals have not yet been reached. Pt continues to have difficulty with bowel urgency and incontinence. Focus thus far had been on bladder health, transition now to promoting improved bowel health. Thus, skilled frequency is indicated to continue 1x/wk for an additional x 10 visits in 90 days. PT to continue working on proximal strength/ coordination of PF, defecation mechanics, and motor coordination strategies. Provider Signature Shows Agreement With POC & Medical Necessity Physician Comment/Change Comment or Changes Physician NPI Number #
== END 2025-03-11 12:11 | disposition home or self-care (01) ==
PROVIDERS: PCP Internal Medicine; Visit Provider Internal Medicine
DX: N39.46 Mixed incontinence (principal); R15.2 Fecal urgency; Z51.89 Encounter for other specified aftercare
CPT/HCPCS: 97110; 97140; 97162; 97535

== ENCOUNTER 2024-12-10 12:36 | Outpatient (CLI) | payer MEDICARE, BC, SELFPAY | END 2024-12-10 12:37 | disposition home or self-care (01) | LOC: MRI 12:37 | PROVIDERS: PCP Internal Medicine; Visit Provider Internal Medicine | DX: Z12.39 Encounter for other screening for malignant neoplasm of breast (principal); Z85.3 Personal history of malignant neoplasm of breast | CPT/HCPCS: 77049; C8908; C8937; A9575 ==

== ENCOUNTER 2025-05-27 08:56 | Outpatient (CLI) | payer MEDICARE, BC, SELFPAY ==
--- NOTE | 2025-05-27 09:15 | CRLHL7_ITS ---
For Patients: As a result of the Century Cures Act, medical imaging exams and procedure reports are released immediately into your electronic medical record. You may view this report before your referring provider. If you have questions, please contact your health care provider. Indication: Low back pain Technique: Multiplanar, multisequence, MRI of the lumbar spine, obtained without contrast. Comparison: Lumbar spine x-ray 05/25/2025 Findings: Lumbar levoconvex curvature, apex at L2-3, with right lateral listhesis at L1-2, left lateral listhesis at L3-4 and L4-5. Preserved lumbar lordosis, with grade 1 retrolisthesis at L1-2 at L2-3. No acute osseous abnormality. Minor Modic type 1 opposing endplate changes at L1-2 and L3-4. Conus medullaris terminates at L1-2. Small right renal cysts. Unremarkable included SI joints. T11-T12: Sagittal images demonstrate disc bulge and facet arthropathy, with likely mild left neural foraminal narrowing and mild spinal canal narrowing. T12-L1: No neural foraminal or spinal canal stenosis. L1-L2: Right eccentric disc-osteophyte complex, right asymmetric facet arthropathy. No neural foraminal stenosis. Mild right-sided spinal canal narrowing L2-L3: Disc bulge, right lateral disc-osteophyte complex, right asymmetric facet arthropathy. No neural foraminal or spinal canal stenosis. L3-L4: Disc bulge, right lateral disc-osteophyte complex, facet arthropathy. No neural foraminal stenosis. Right lateral recess narrowing contacting the descending right L4 nerve root. L4-L5: Diffuse disc bulge, left asymmetric facet arthropathy. No right, mild left neural foraminal narrowing. Mild spinal canal narrowing with sugf-lakxfiy-ckav-right lateral recess stenosis, potentially impinging the L5 nerve roots, left worse than right. L5-S1: Left lateral disc-osteophyte complex, left asymmetric facet arthropathy. No right, moderate left neural foraminal stenosis. Left lateral recess narrowing contacting the descending left S1 nerve root without central spinal canal stenosis. Impression: 1. Lumbar spondylosis with levoconvex curvature and low-grade spondylolisthesis as detailed. 2. At L3-L4, right lateral recess stenosis contacting the descending right L4 nerve root. 3. At L4-L5, nlvk-fqhpezc-qrfu-right lateral recess stenosis potentially impinging the L5 nerve roots, left worse than right. 4. At L5-S1, moderate left neural foraminal stenosis, and left lateral recess narrowing contacting the descending left S1 nerve root. Dictated by Rachel Flores MD @ 05/28/2025 10:15:04 AM (Electronically Signed)
== END 2025-05-27 08:57 | disposition home or self-care (01) ==
LOC: MRI 08:57
PROVIDERS: PCP Internal Medicine; Visit Provider Family Medicine
DX: M54.50 Low back pain, unspecified (principal); M47.896 Other spondylosis, lumbar region; M48.061 Spinal stenosis, lumbar region without neurogenic claudication; M48.07 Spinal stenosis, lumbosacral region; G89.29 Other chronic pain
CPT/HCPCS: 72148

== ENCOUNTER 2025-06-19 09:24 | Outpatient (CLI) | payer MEDICARE, BC, SELFPAY | END 2025-06-19 09:25 | disposition home or self-care (01) | LOC: INJ CL 09:24 | PROVIDERS: PCP Internal Medicine; Visit Provider Family Medicine | DX: M54.16 Radiculopathy, lumbar region (principal); M51.369 Other intervertebral disc degeneration, lumbar region without mention of lumbar back pain or lower extremity pain | CPT/HCPCS: 64483; 64484; J1100; Q9966 ==

== ENCOUNTER 2025-06-26 13:45 | Outpatient (RCR) | payer MEDICARE, BC, SELFPAY ==
--- NOTE | 2025-05-29 12:32 | PT.OPE ---
PT [facility] Outpatient Eval PT [facility] Outpatient Eval Start: 05/28/25 13:30 Freq: Status: Active Protocol: Document 05/29/25 12:31 CJT (Rec: 05/29/25 12:32 CJT [id number]) E-signed By Darrick Garza PT Physical Therapy Outpatient Evaluation Insurance Information Recert Due Date 08/27/25 Insurance Name Medicare B Medical Diagnosis Degeneratic scoliosis/lumbar back pain with radiculopathy Treating Diagnosis M54.5 - Low back pain M54.16 - Lumbar radiculopathy Imaging Report MRI - Lumbar Spine - 05/28/25 Information 1. Lumbar spondylosis with levoconvex curvature and low -grade spondylolisthesis as detailed. 2. At L3-L4, right lateral recess stenosis contacting the descending right L4 nerve root. 3. At L4-L5, mccy-yvzjkha-iluh-right lateral recess stenosis potentially impinging the L5 nerve roots, left worse than right. 4. At L5-S1, moderate left neural foraminal stenosis, and left lateral recess narrowing contacting the descending left S1 nerve root. Referring MD Andrews, Tigre ULLOA Subjective Preferred Name Fatmata Subjective Pt presents with complaints of low back pain, worse on Left. Pt reports she has had episodes of sciatica over the years that has typically resolved on it's own. When she is out walking her dog she has noticed increased drop foot with louder foot slap on the pavement. Pt worries that her leg will eventually give out on her during her walks and worries she won't be able to make it back home. Pt complains of widespread muscle cramps. Worst of all is across the top of her L foot. Pt notes that her sciatic pain starts in the low back and travels down the outside of her L thigh and wraps around the knee and continues to travel down the inside of her L leg. This pain seems to come and go more frequently lately. 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 Pt reports history of breast cancer. Pain Comments 04/07 Current Work Status Retired Precautions Therapy Limitations/ Not Limited Systems Review Objective Other/Pertinent Lumbar ROM Objective Extension - minimal limitations, feels a slight pinch in L lumbar region Flexion - no pain, minimal limitations, pt notes pain in L upper lumbar region when returning to standing R/L Side Bend - no limitations, no pain R/L Rotation - moderate limitations, no pain R Hip ROM Flexion - WNL IR/ER - 30/40 Extension - WFL L Hip ROM Flexion - WNL IR/ER - 38/32 Extension - WFL R knee ROM - WNL L knee ROM - WNL R ankle DF(kf)/DF(ke): 10/-3 L ankle DF(kf)/DF(ke): 5/-3 R Hip Strength Flexion - 5/5 MMT Abduction - 4+/5 MMT Adduction - 5/5 MMT IR - 5/5 MMT ER - 5/5 MMT Extension - 4/5 MMT L Hip Strength Flexion - 4+/5 MMT Abduction - 4-/5 MMT Adduction - 5/5 MMT IR - 5/5 MMT ER - 5/5 MMT Extension - 4-/5 MMT R knee Extension - 5/5 MMT R Knee Flexion - 5/5 MMT L knee Extension - 5/5 MMT L knee Flexion - 5/5 MMT R ankle DF - 5/5 MMT L ankle DF - 4/5 MMT Palpation: pt reports pain/tenderness with palpation to L thoracic and lumbar paraspinals, QL, R thoracic paraspinals Gait: minimal deviations noted today, slightly wide gait DTRs: 2+ bilateral patella, R achilles, no response from L achilles Special Testing Slump: positive for increased neural tension bilaterally SLR: pt notes increased L anterior thigh pain at approx 60 degrees elevation FADIR: negative JOSE: pt notes increased pain in L low back Debra's: positive R>L Piriformis: negative Hamstring: negative Pelvis: relatively level, possible L upslip Leg Length (R/L): 86.5cm bilaterally Assessment Assessment/ Fatmata is a very pleasant 74 year old female who presents Impression to our clinic for evaluation and treatment of low back pain with L side radiculopathy. Pts imaging confirms scoliosis with potential impingent of Right L3-4 nerve roots as well as Left L4-5 and L5-S1 nerve roots. These findings certainly explain the pain she has been experiencing. Today I reviewed basic opening/closing rules of the spine so that she may position herself appropriately to relieve symptoms when needed. Pt demonstrated good understanding of these instructions today. I do think she will benefit from this education as well as continued emphasis on core and hip strengthening to improve stability of her spine. The nature of the pts condition was explained and all questions were answered to the pts satisfaction. Skilled PT services are medically necessary to address deficits and return patient to highest level of function. Recommend physical therapy sessions 2/week for 4-6 weeks. Pt agrees with this plan but prefers to attend sessions once weekly. Printout of HEP was given for I completion and pt gives verbal understanding of each exercise. Primary Functional Walking, exercise Limitations Plan of Care Rehabilitation Good Potential Physical Therapy STG - To be completed in 4 weeks: Goals 1. Pt will report consistent performance of basic spine mobility exercises without reproduction of symptoms. 2. Pt will report reduction of pain by factor of 2 so that she may achieve better nights sleep and walk with improved comfort. LTG - To be completed in 6-8 weeks: 1. Pt to be I with HEP so that they may I manage progression of symptoms. 2. Pt will demo 5/5 MMT for all LE motions bilaterally to provide improve stability to pelvis and lumbar spine with functional movements. 3. Pt will demo negative Debra's test to allow for reduced anterior pelvic tilt in standing. 4. Pt will report ability to go for walk with her dog of desired distance without increased foot drop so that she may go for walks with improved confidence. Treatment Plan/ Electrical Stimulation,Gait Training,Heat,Ice/Cold/ Direct Interventions Vasopneumatic,Joint Mobilization,Manual Therapy, Neuromuscular Re-ed,Self-Care/Home Management, Therapeutic Activities,Therapeutic Exercises Frequency/Duration 2/week for 4-6 weeks Patient Will Be Completion of LTG(s),Skills Plateau,Independent w/HEP, Discharged From Independently Progressing Therapy Evaluation Billing Untimed Code 54 Treatment Minutes PT Eval No Charge No Complexity Low Certification Information Initial 05/29/25 Certification Date Ending Certification 08/27/25 Date Provider Signature Yes Required Provider Signature POC & Medical Necessity Shows Agreement With Physician NPI Number Write NPI# Here Physician Comment/ : Change Physician Signature Please Sign/Date Here & Date Requested
== END 2025-08-14 09:54 | disposition home or self-care (01) ==
PROVIDERS: PCP Internal Medicine; Visit Provider Family Medicine
DX: M54.16 Radiculopathy, lumbar region (principal); M41.50 Other secondary scoliosis, site unspecified; G89.29 Other chronic pain; Z51.89 Encounter for other specified aftercare
CPT/HCPCS: 97110; 97140; 97161

== ENCOUNTER 2025-06-30 13:37 | Outpatient (CLI) | payer MEDICARE, BC, SELFPAY ==
--- NOTE | 2025-06-30 14:00 | CRLHL7_ITS ---
For Patients: As a result of the Century Cures Act, medical imaging exams and procedure reports are released immediately into your electronic medical record. You may view this report before your referring provider. If you have questions, please contact your health care provider. INDICATION: UNILATERAL RIGHT SCREENING MAMMOGRAM, ASYMPTOMATIC 74 Y/O FEMALE COMPARISON: 12/10/2024, 06/17/2024, 12/17/2023 TECHNIQUE: Digital mammogram in CC and MLO projections including computer-aided detection (CAD) and tomosynthesis. BREAST COMPOSITION: The breasts are heterogeneously dense, which may obscure small masses. FINDINGS: No suspicious findings. ASSESSMENT: BI-RADS 2 Benign RECOMMENDATION: Annual screening mammogram. A lay language report of this examination will be provided to the patient. Dictated by: Luis Fernando Eason MD @ 07/01/2025 09:38:36 (Electronically Signed)
== END 2025-06-30 13:38 | disposition home or self-care (01) ==
PROVIDERS: PCP Internal Medicine; Visit Provider Internal Medicine
DX: Z12.31 Encounter for screening mammogram for malignant neoplasm of breast (principal); R92.333 Mammographic heterogeneous density, bilateral breasts
CPT/HCPCS: 77063; 77067

== ENCOUNTER 2025-07-03 09:09 | Outpatient (CLI) | payer MEDICARE, BC, SELFPAY | END 2025-07-03 09:10 | disposition home or self-care (01) | LOC: NFLDREF 07-08 11:18 | PROVIDERS: PCP Internal Medicine; Referring Provider Internal Medicine; Visit Provider Internal Medicine | DX: E78.5 Hyperlipidemia, unspecified (principal) | CPT/HCPCS: 80061 ==

== ENCOUNTER 2025-08-06 10:51 | Outpatient (CLI) | payer MEDICARE, BC, SELFPAY ==
--- NOTE | 2025-08-06 11:15 | CRLHL7_ITS ---
For Patients: As a result of the Century Cures Act, medical imaging exams and procedure reports are released immediately into your electronic medical record. You may view this report before your referring provider. If you have questions, please contact your health care provider. 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 Technique: Grayscale and color Doppler ultrasound of the left lateral chest wall performed in the area of concern. Comparison: Breast MRI 06/17/2024, 12/10/[address] chest 11/03/2024 Findings: Normal soft tissues. No shadowing lesion or fluid collection. No adenopathy. No abnormal vascularity. Impression: No suspicious findings. Dictated by Luis Fernando Eason MD @ 08/06/2025 11:57:49 AM (Electronically Signed)
== END 2025-08-06 10:52 | disposition home or self-care (01) ==
LOC: US 10:53
PROVIDERS: PCP Internal Medicine; Visit Provider Internal Medicine
DX: Z85.3 Personal history of malignant neoplasm of breast (principal)
CPT/HCPCS: 76604